=== PATIENT | female | born 1935 | race Caucasian/White ===

== ENCOUNTER 2024-03-25 07:27 | Inpatient (IN) | payer MEDICARE, OTHER ==
[~2024-03-25] VITALS: Ht 157.5 cm; Wt 80.8 kg
[2024-03-25] VITALS (14 sets, daily range): BP systolic 110–150; BP diastolic 55–86; PULSE 74–103; RESP 16–32; TEMP 97–97.9; O2SAT 2–99
[~2024-03-25 07:27] MED LIST: ALIR75IN2 SC; CEPH500C PO; FAMO-12 PO; FLUT100M IN; METO25TA93 PO; NITR100C6 PO; NYS15PW TOP
[2024-03-25] MEDS: ALBUTEROL SULF 2.5 MG/0.5ML(0.5%) NEB SOLN NEB ONE (07:43)
--- NOTE | 2024-03-25 07:44 | ECG ---
[facility] Test Date: 2024-03-25 Test Time: 07:37:11 Pat Name: JAM HENDERSON Department: ED Room: 0273T Gender: F Guest Attendant: AUDREY : 1935 Requested By: TRISTIN DALY Order Number: [id number] Reading MD: Jonny Rawls Measurements Intervals [place] Rate: 101 P: 269 CA: 106 QRS: -33 QRSD: 149 T: 129 QT: 403 QTc: 523 Interpretive Statements Sinus or ectopic atrial tachycardia Left bundle branch block Baseline wander in lead(s) II,III,aVF Electronically Signed On 04-01-2024 14:53:17 PST by Jonny Rawls Please click the below link to view image of tracing.
[2024-03-25] MEDS ORDERED: methylPREDNISolone ACETATE 80 MG/ML VL IM ONE (07:45)
--- NOTE | 2024-03-25 08:02 | ED.PDOC ---
History of Present Illness HPI Comments 88F BIBA w/ prior Hx of Heart Valve Replacement which may be associated to the c/c of CPAP. EMS state that the pt woke up 3 minutes ago at 0727 w/ SOB and family gave the pt 2L NC at home which the pt was SAT at 87% on scene. EMS gave the pt a CPAP en rout to the ED due from her work of breathe going down from them being on scene. Pt [id number] nodded that she did have cough as well. PMHx of HLD. Denies chills, fever, N/V/D, CP or other associated symptoms, modifiers or recent injuries or sick contact at this time. Chief Complaint: Shortness of Breath Time Seen by MD: 07:30 Reviewed Notes: Nurses Notes, Cash Application Representative Notes, Medications, Allergies Allergies: Coded Allergies: NO KNOWN ALLERGIES (Unverified , 03/25/24) Information Source: Patient, Emergency Med Personnel Mode of Arrival: EMS Severity: Moderate Timing: Minutes Duration: Since onset, Minutes Prehospital treatment: C-Pap Past Medical History Past Medical History (Other): Heart Valve Replacement and HLD. Surgical History: Denies all surgeries LICENSED LAND SURVEYOR History: No Pertinent LICENSED LAND SURVEYOR History Family History Family History: Reviewed,noncontributory to illness, Unknown Social History Smoker: Non-Smoker Alcohol: Denies ETOH Use Drugs: Denies Drug Use Lives In: Home Constitutional: denies: chills, diaphoresis, fatigue, fever, malaise, sweats, weakness, others EENTM: denies: blurred vision, double vision, ear bleeding, ear discharge, ear drainage, ear pain, ear ringing, eye pain, eye redness, hearing loss, mouth pain, mouth swelling, nasal discharge, nose bleeding, nose congestion, nose pain, photophobia, tearing, throat pain, throat swelling, voice changes, others Respiratory: reports: SOB at rest, shortness of breath; denies: cough, hemoptysis, orthopnea, SOB with excertion, stridor, wheezing, others Cardiovascular: denies: chest pain, dizzy spells, diaphoresis, Dyspnea on exertion, edema, irregular heart beat, left arm pain, lightheadedness, p alpitations, PND, syncope, others Gastrointestinal: denies: abdomen distended, abdominal pain, blood streaked bowels, constipated, diarrhea, dysphagia, difficulty swallowing, hematemesis, melena, nausea, poor appetite, poor fluid intake, rectal bleeding, rectal pain, vomiting, others Genitourinary: denies: abnormal vagina bleeding, burning, dyspareunia, dysuria, flank pain, frequency, hematuria, incontinence, pain, , vagina discharge, urgency, others Neurological: denies: dizziness, fainting, headache, left sided numbness, left sided weakness, numbness, paresthesia, pre-existing deficit, right sided numbness, right sided weakness, seizure, speech problems, tingling, tremors, weakness, others Musculoskeletal: denies: back pain, gout, joint pain, joint swelling, muscle pain, muscle stiffness, neck pain, others Integumetry: denies: bruises, change in color, change in hair/nails, dryness, laceration, lesions, lumps, rash, wounds, others Allergic/Immunocompromised: denies: Difficulty Healing, Frequent Infections, Hives, Itching, others Hematologic/Lymphatic: denies: anemia, blood clots, easy bleeding, easy bruising, swollen glands, others Endocrine: denies: excessive hunger, excessive sweating, excessive thirst, excessive urination, flushing, intolerance to cold, intolerance to heat, unexplained weight gain, unexplained weight loss, others Psychiatric: denies: anxiety, bipolar disorder, depression, hopeless, panic disorder, schizophrenia, sleepless, suicidal, others All Other Systems: Reviewed and Negative Physical Exam Exam Comments Bilateral wheezing Tachycardic Bilateral edema and swelling General Appearance: No Apparent Distress, Normal HEENT: Normal ENT Inspection, Pharynx Normal, TMs Normal Neck: Full Range of Motion, Non-Tender, Normal, Normal Inspection Respiratory: Chest Non-Tender, Lungs Clear, No Accessory Muscle Use, No Respiratory Distress, Normal Breath Sounds, Wheezing Cardiovascular: No JVD, No Murmur, No Gallop, Normal Peripheral Pulses, Regular Rate/Rhythm, Tachycardia Breast Exam: Deferred Gastrointestinal: No Organomegaly, Non Tender, No Pulsatile Mass, Normal Bowel Sounds, Soft Genitalia: Deferred Pelvic: Deferred Rectal: Deferred Extremities: No calf tenderness, Normal capillary refill, Normal inspection, Normal range of motion, Non-tender, No pedal edema Musculoskeletal : Apperance: Normal Neurologic: Alert, educational specialist II-XII nml as Tested, No Motor Deficits, Normal Affect, Normal Mood, No Sensory Deficits Cerebellar Function: Normal Reflexes: Normal Skin: Dry, Normal Color, Warm Lymphatic: No Adenopathy Was a procedure done? Was a procedure done?: No Differential Dx Considerations may include: Acute coronary syndrome, CHF, pneumonia, AAA, flu, pneumothorax, hemothorax, pleural effusion X-Ray, Labs, Meds, VS Vital Signs Date Time Temp Pulse Resp B/P (MAP) Pulse Ox O2 Delivery O2 Flow Rate FiO2 03/25/24 11:44 100 117/55 Facial BiPAP Mask 30 03/25/24 11:30 117/65 03/25/24 08:56 95 03/25/24 08:25 99 32 96 Bi-Pap+ 50 50 03/25/24 08:25 97.0 9 32 146/61 (89) 96 97.0 03/25/24 07:57 100 146/61 Facial BiPAP Mask 75 03/25/24 07:50 103 85 Facial BiPAP Mask 75 03/25/24 07:50 Facial BiPAP Mask 75 03/25/24 07:43 29 100 Non-Rebreather 15 N/A 03/25/24 07:37 101 03/25/24 07:34 96.6 103 28 186/93 (124) 85 Lab Test 03/25/24 11:50 03/25/24 11:12 03/25/24 09:38 03/25/24 08:48 Range/Units Troponin I High Sensitivity 131 *H 75 *H </=34 ng/L Urine Color Light-yellow Yellow Urine Clarity Clear Clear Urine pH 5.5 5.0-9.0 Urine Specific [place] 1.009 1.001-1.035 Urine Protein Negative Negative Urine Ketones Negative Negative Urine Blood Negative Negative /uL Urine Nitrite Negative Negative Urine Bilirubin Negative Negative Urine Urobilinogen Normal Negative mg/dL Urine Leukocyte Esterase Negative Negative /uL Urine RBC 1 0 - 4 /hpf Urine WBC 1 0 - 5 /hpf Urine Squamous Epithelial Cells None seen <5 /hpf Urine Bacteria None seen None Seen /hpf Urine Hyaline Casts Few 0 - 2 /lpf Urine Glucose Normal Normal mg/dL Blood Gas Specimen Type Arterial Blood Gas Sample Site Left radial Blood Gas Patient Temperature 37.0 Arterial Blood Date Drawn [id number] Arterial Blood pH 7.246 *L 7.350-7.450 Arterial Blood Partial Pressure CO2 59.8 H 32.0-45.0 mmHg Arterial Blood Partial Pressure O2 264.2 H 83.0-108.0 mmHg Arterial Blood HCO3 25.4 21.0-28.0 mmol/L Arterial Blood Oxygen Saturation 99.6 H 94.0-98.0 % Arterial Blood Base Excess -3.0 L -2.0-3.0 mmol/L Arterial Blood Oxyhemoglobin 98.2 H 94.0-98.0 % Arterial Blood Carboxyhemoglobin 0.9 0.5-1.5 % Arterial Blood Methemoglobin 0.5 0.0-1.5 % Adriel Test Yes Blood Gas Total Hemoglobin 14.40 12.0-16.0 g/dL Blood Gas Modality Mask - bipap FiO2 % 75.0 Blood Gas Pressure Support 5 Blood Gas EPAP 5 Blood Gas IPAP 10 Blood Gas Critical Value Read Back Yes Blood Gas Notified Whom Jennifer galan md Blood Gas Notified Time [id number] Blood Gas Notified By Cindy stone imaging aide Test 03/25/24 08:02 Range/Units White Blood Count 12.3 H 4.4-10.8 10^3/uL Red Blood Count 4.24 4.0-5.20 10^6/uL Hemoglobin 13.8 12.2-16.2 g/dL Hematocrit 41.6 36.0-46.0 % Mean Corpuscular Volume 98.1 80.0-100.0 fL Mean Corpuscular Hemoglobin 32.4 H 28.0-32.0 pg Mean Corpuscular Hemoglobin Concent 33.1 32.0-36.0 g/dL Red Cell Distribution Width 13.4 11.8-14.3 % Platelet Count 244 140-450 10^3/uL Mean Platelet Volume 7.7 6.9-10.8 fL Neutrophils (%) (Auto) 71.3 37.0-80.0 % Lymphocytes (%) (Auto) 20.8 10.0-50.0 % Monocytes (%) (Auto) 5.1 0.0-12.0 % Eosinophils (%) (Auto) 2.4 0.0-7.0 % Basophils (%) (Auto) 0.4 0.0-2.0 % Neutrophils # (Auto) 8.8 H 1.6-8.6 10 ^3/uL Lymphocytes # (Auto) 2.6 0.4-5.4 10 ^3/uL Monocytes # (Auto) 0.6 0-1.3 10 ^3/uL Eosinophils # (Auto) 0.3 0-0.8 10 ^3/uL Basophils # (Auto) 0 0-0.2 10 ^3/uL Nucleated Red Blood Cells 0.0 % D-Dimer, Quantitative 0.97 H 0.0-0.49 mg/L FEU Sodium Level 136 136-145 mmol/L Potassium Level 4.4 3.5-5.1 mmol/L Chloride Level 103 98-107 mmol/L Carbon Dioxide Level 27 20-31 mmol/L Anion Gap 6 5-15 Blood Urea Nitrogen 9 9-23 mg/dL Creatinine 0.88 0.550-1.02 mg/dL Glomerular Filtration Rate Calc 64 >90 mL/min BUN/Creatinine Ratio 10.2 10.0-20.0 Serum Glucose 263 H 74-106 mg/dL Calcium Level 9.3 8.7-10.4 mg/dL Total Bilirubin 0.5 0.2-1.0 mg/dL Aspartate Amino Transferase (AST) 30 13-40 U/L Alanine Aminotransferase (ALT) 21 7-40 U/L Alkaline Phosphatase 83 46-116 U/L Troponin I High Sensitivity 37 *H </=34 ng/L B-Type Natriuretic Peptide 421.38 0-100 pg/mL Total Protein 7.2 5.7-8.2 g/dL Albumin 4.2 3.2-4.8 g/dL Current Medications Medications (Trade) Dose Ordered Sig/Bijan Route Start Time Stop Time Status Last Admin Albuterol (Ventolin Medneb) 20 mg ONCE ONCE NEB 03/25/24 07:45 03/25/24 07:46 DC 03/25/24 07:43 Methylprednisolone Sodium Succinate (Solu Medrol) 80 mg ONCE ONCE IV 03/25/24 08:15 03/25/24 08:16 DC 03/25/24 08:10 Furosemide (Lasix Injection) 80 mg ONCE ONCE IV 03/25/24 09:15 03/25/24 09:19 DC 03/25/24 11:30 X-Ray, Labs, Meds, VS Comment This is a patient who presented with the acute onset of hypoxemic respiratory failure. She was satting at 90%. She was placed on BiPAP on route here. We continued that. Apparently patient has been drinking lot of fluids and had some chips or fries. Patient was not significant respiratory failure and chest x-ray shows cardiomegaly with bilateral pleural effusion. She had a decent response to large dose IV Lasix and her breathing did improve ultimately patient was taken off BiPAP. Nonetheless patient continued to be short of breath and therefore recommended hospitalization that she agreed. Time of 1ST Reevaluation: 08:00 Reevaluation 1ST: Unchanged Patient Education/Counseling: Diagnosis, Treatment, Prognosis Family Education/Counseling: No Family Present Departure 1 Departure Time of Disposition: 16:46 Impression: Primary Impression: Acute exacerbation of CHF (congestive heart failure) Additional Impression: Acute hypoxemic respiratory failure Disposition: 09 ADMITTED INPATIENT Admit to: Tele Condition: Critical Critical Care Note Critical Care Time?: Yes (45 min-critical care time only) Critical care comment: CRITICAL CARE TIME: 45 minutes Treatments/Evaluations: Close monitoring and treatment of unstable vital signs, cardiorespiratory, and neurologic status, while maintaining tight balance of fluid, respiratory, and cardiac interventions. This time includes discussing the case with the patient and the patients family. This time does not include all procedures stated elsewhere in this record. This time also includes reviewing old records, labs and radiological studies. This time includes examining and re- examining the patient. Additionally, this time also includes arranging care with admitting and consulting physicians. Stability Stability form required: No Heart Score Heart Score: Heart Score Response (Comments) Value History N/A 0 EKG N/A 0 Age N/A 0 Risk Factors N/A 0 Troponin N/A 0 Total 0 I personally scribed for TRISTIN GALAN MD ([email or web address]) on 03/25/24 at 08:02. Electronically submitted by Felix Espitia ([email or web address]). TRISTIN GALAN MD Mar 25, 2024 08:02
[2024-03-25] MEDS: methylPREDNISolone SOD SUCC 125 MG/2 ML VL IV ONE (08:10)
[2024-03-25 08:34] LABS: Basophils # (auto) 0 10 ^3/uL (0-0.2); Basophils % (auto) 0.4 % (0.0-2.0); Eosinophils # (auto) 0.3 10 ^3/uL (0-0.8); Eosinophils % (auto) 2.4 % (0.0-7.0); Hematocrit 41.6 % (36.0-46.0); Hemoglobin 13.8 g/dL (12.2-16.2); Lymphocytes # (auto) 2.6 10 ^3/uL (0.4-5.4); Lymphocytes % (auto) 20.8 % (10.0-50.0); Mean Corpuscular Hemoglobin 32.4 pg (28.0-32.0); Mean Corpuscular Hgb Conc. 33.1 g/dL (32.0-36.0); Mean Corpuscular Volume 98.1 fL (80.0-100.0); Monocytes # (auto) 0.6 10 ^3/uL (0-1.3); Monocytes % (auto) 5.1 % (0.0-12.0); Neutrophils # (auto) 8.8 10 ^3/uL (1.6-8.6); Neutrophils % (auto) 71.3 % (37.0-80.0); Platelet Count (auto) 244 10^3/uL (140-450); Red Blood Cells 4.24 10^6/uL (4.0-5.20); Red Cell Distribution Width 13.4 % (11.8-14.3); White Blood Cell 12.3 10^3/uL (4.4-10.8)
--- NOTE | 2024-03-25 08:35 | DVH ---
CHEST RADIOGRAPH Indication: sob Technique: Single frontal view of the chest was obtained Comparison: None FINDINGS: Lines and Tubes: None Lungs: No focal consolidation. Pleura: No effusion. No pneumothorax. Cardiomediastinal contours: Cardiomegaly Bones: No acute osseous abnormality. IMPRESSION: Cardiomegaly with chf
[2024-03-25 08:51] LABS: Alanine Aminotransferase 21 U/L (7-40); Albumin 4.2 g/dL (3.2-4.8); Alkaline Phosphatase 83 U/L (46-116); Anion Gap 6 (5-15); Aspartate Aminotransferase 30 U/L (13-40); BUN/Creatinine Ratio 10.2 (10.0-20.0); Bilirubin, Total 0.5 mg/dL (0.2-1.0); Blood Urea Nitrogen 9 mg/dL (9-23); Calcium 9.3 mg/dL (8.7-10.4); Carbon Dioxide 27 mmol/L (20-31); Chloride 103 mmol/L (98-107); Potassium 4.4 mmol/L (3.5-5.1); Sodium 136 mmol/L (136-145); Total Protein 7.2 g/dL (5.7-8.2)
[2024-03-25 09:01] LABS: Glucose 263 mg/dL (74-106)
[2024-03-25] MEDS: FUROSEMIDE 100 MG/10ML VIAL IV ONE (11:30)
[2024-03-25] MEDS ORDERED: ALBUTEROL SULF 2.5 MG/0.5ML(0.5%) NEB SOLN NEB PRN (13:30)
[2024-03-25] MEDS ORDERED: NITROGLYCERIN 0.4 MG SL TAB SL PRN (13:30)
[2024-03-25] MEDS: IPRATROPIUM BROM 0.5 MG/2.5ML INH SOL NEB SCH (14:18)
[2024-03-25] MEDS: ALBUTEROL SULF 2.5 MG/0.5ML(0.5%) NEB SOLN NEB SCH (14:18)
--- NOTE | 2024-03-25 14:22 | DVHHP2 ---
History of Present Illness Reason for Visit: Acute hypoxic respiratory failure rule out new onset heart failure History of Present Illness This is a 88-year-old female with history of hyperlipidemia and heart valve replacement who presents to the ED via EMS with chief complaint of shortness of breath that started early this morning. Patient states family gave patient 2 L oxygen at home, SpO2 87% on scene per EMS personnel. The patient was placed on CPAP EN route to this facility. The patient denies history of COPD along with issues with breathing. The patient is concerned about her symptoms and would like to be further evaluated and treated as this occurred suddenly. Upon evaluation, patient is on room air with SpO2 greater than 93% stating feeling relief and denying other symptoms at this time. The patient will be admitted under hospitalist care to the telemetry unit for further monitoring. The patient denies recent injury or trauma to her chest, fever, chills, headache, dizziness, palpitation, chest pain, nausea, vomiting, abdominal pain, diarrhea, constipation and other associated symptoms. The plan has been discussed with the patient and primary RN in which all questions concerns have been addressed. Cardiovascular: hyperipidemia Past Surgical History Heart valve replacement Family History: None Smoke: No ALCOHOL: none Drugs: None Lives: with Family Domestic Violence: Neg Review of Systems Respiratory: Shortness of breath Allergies: Coded Allergies: NO KNOWN ALLERGIES (Unverified , 03/25/24) Medications Current Medications Medications Dose Ordered Sig/Bijan Route Start Time Stop Time Status Last Admin Dose Admin Albuterol 2.5 mg Q2HPRN PRN NEB 03/25/24 13:30 Albuterol 2.5 mg Q4HR NEB 03/25/24 14:00 Ipratropium [place] 0.5 mg Q4HR NEB 03/25/24 14:00 Sodium Chloride 1,000 ml @ 60 mls/hr [id number] IV 03/25/24 13:30 Enoxaparin Sodium 40 mg DAILY SC 03/26/24 10:00 Acetaminophen 650 mg Q6HP PRN PO 03/25/24 13:30 Nitroglycerin 0.4 mg Q5MINP PRN SL 03/25/24 13:30 Morphine Sulfate 2 mg Q30M PRN IV 03/25/24 13:30 Exam Vital Signs Vital Signs Date Time Temp Pulse Resp B/P (MAP) Pulse Ox O2 Delivery O2 Flow Rate FiO2 03/25/24 11:44 100 117/55 Facial BiPAP Mask 30 03/25/24 08:25 32 96 03/25/24 08:25 97.0 97.0 03/25/24 07:43 15 General Appearance: Alert, Oriented X3, Cooperative, No acute distress HEENT: Atraumatic, PERRLA, Mucous membr. moist/pink Respiratory: Clear to auscultation, Normal air movement Cardiovascular: Normal S1, Normal S2, No murmurs Abdominal: Normal bowel sounds, Soft, No tenderness, No hepatospenomegaly, No masses Extremities: No clubbing, No cyanosis, No edema, Normal pulses, No tenderness/swelling Skin: No rashes Neuro: Normal speech, Strength at 5/5 X4 ext, Normal tone, Sensation intact, Cranial nerves 3-12 NL, Reflexes 2+ Psych/Mental Status: Mental status NL Labs/Xrays Labs Test 03/25/24 11:50 03/25/24 08:48 03/25/24 08:02 Range/Units Troponin I High Sensitivity 131 *H </=34 ng/L Blood Gas Specimen Type Arterial Blood Gas Sample Site Left radial Blood Gas Patient Temperature 37.0 Arterial Blood Date Drawn [id number] Arterial Blood pH 7.246 *L 7.350-7.450 Arterial Blood Partial Pressure CO2 59.8 H 32.0-45.0 mmHg Arterial Blood Partial Pressure O2 264.2 H 83.0-108.0 mmHg Arterial Blood HCO3 25.4 21.0-28.0 mmol/L Arterial Blood Oxygen Saturation 99.6 H 94.0-98.0 % Arterial Blood Base Excess -3.0 L -2.0-3.0 mmol/L Arterial Blood Oxyhemoglobin 98.2 H 94.0-98.0 % Arterial Blood Carboxyhemoglobin 0.9 0.5-1.5 % Arterial Blood Methemoglobin 0.5 0.0-1.5 % Adriel Test Yes Blood Gas Total Hemoglobin 14.40 12.0-16.0 g/dL Blood Gas Modality Mask - bipap FiO2 % 75.0 Blood Gas Pressure Support 5 Blood Gas EPAP 5 Blood Gas IPAP 10 Blood Gas Critical Value Read Back Yes Blood Gas Notified Whom Jennifer galan md Blood Gas Notified Time [id number] Blood Gas Notified By B. stone bird sitter White Blood Count 12.3 H 4.4-10.8 10^3/uL Red Blood Count 4.24 4.0-5.20 10^6/uL Hemoglobin 13.8 12.2-16.2 g/dL Hematocrit 41.6 36.0-46.0 % Mean Corpuscular Volume 98.1 80.0-100.0 fL Mean Corpuscular Hemoglobin 32.4 H 28.0-32.0 pg Mean Corpuscular Hemoglobin Concent 33.1 32.0-36.0 g/dL Red Cell Distribution Width 13.4 11.8-14.3 % Platelet Count 244 140-450 10^3/uL Mean Platelet Volume 7.7 6.9-10.8 fL Neutrophils (%) (Auto) 71.3 37.0-80.0 % Lymphocytes (%) (Auto) 20.8 10.0-50.0 % Monocytes (%) (Auto) 5.1 0.0-12.0 % Eosinophils (%) (Auto) 2.4 0.0-7.0 % Basophils (%) (Auto) 0.4 0.0-2.0 % Neutrophils # (Auto) 8.8 H 1.6-8.6 10 ^3/uL Lymphocytes # (Auto) 2.6 0.4-5.4 10 ^3/uL Monocytes # (Auto) 0.6 0-1.3 10 ^3/uL Eosinophils # (Auto) 0.3 0-0.8 10 ^3/uL Basophils # (Auto) 0 0-0.2 10 ^3/uL Nucleated Red Blood Cells 0.0 % D-Dimer, Quantitative 0.97 H 0.0-0.49 mg/L FEU Sodium Level 136 136-145 mmol/L Potassium Level 4.4 3.5-5.1 mmol/L Chloride Level 103 98-107 mmol/L Carbon Dioxide Level 27 20-31 mmol/L Anion Gap 6 5-15 Blood Urea Nitrogen 9 9-23 mg/dL Creatinine 0.88 0.550-1.02 mg/dL Glomerular Filtration Rate Calc 64 >90 mL/min BUN/Creatinine Ratio 10.2 10.0-20.0 Serum Glucose 263 H 74-106 mg/dL Calcium Level 9.3 8.7-10.4 mg/dL Total Bilirubin 0.5 0.2-1.0 mg/dL Aspartate Amino Transferase (AST) 30 13-40 U/L Alanine Aminotransferase (ALT) 21 7-40 U/L Alkaline Phosphatase 83 46-116 U/L B-Type Natriuretic Peptide 421.38 0-100 pg/mL Total Protein 7.2 5.7-8.2 g/dL Albumin 4.2 3.2-4.8 g/dL ORDERING PHYSICIAN: TRISTIN GALAN MD PROCEDURE(s): CXRP - CHEST PORTABLE REASON: sob ORDER NUMBER(s): [id number], ACCESSION NUMBER(s): [id number] CHEST RADIOGRAPH Indication: sob Technique: Single frontal view of the chest was obtained Comparison: None FINDINGS: Lines and Tubes: None Lungs: No focal consolidation. Pleura: No effusion. No pneumothorax. Cardiomediastinal contours: Cardiomegaly Bones: No acute osseous abnormality. IMPRESSION: Cardiomegaly with chf ATED BY: ROSMERY MORENO MD DICTATED DATE/TIME: 03/25/24831 SIGNED BY: ROSMERY MORENO MD SIGNED DATE/TIME: 03/25/24831 CC: Assessment/Plan Assessment/Plan Acute hypoxic respiratory failure rule out new onset heart failure--patient reports complaint of shortness of breath that started today at home The patient was given oxygen at home with SpO2 87% on scene per EMS Patient was transported to this facility with CPAP History of heart valve replacement and hyperlipidemia Patient on BiPAP FiO2 75% in the ER and was given Lasix with positive diuresis Upon evaluation on room air with SpO2 greater than 93% with improvement Admit to telemetry unit for monitoring Reviewed CBC white blood cell count 12.3 Reviewed troponin 37, 75 pending 3rd result Reviewed BMP which is normal D-dimer 0.97 Reviewed ABG respiratory acidosis Consider to consult Dr. Goldberg for evaluation and recommendation Med neb q.4 hours Albuterol q.2h p.r.n. shortness of breath Consider IV steroid if patient has wheezing--no wheezing noted ? New onset systolic/diastolic heart failure BNP 421.38 IV Lasix was given in the ER with positive diuresis Echocardiogram pending Consult Dr. Winkler for evaluation and recommendation Reconcile home medication DVT prophylaxis PUD prophylaxis not indicated no history of GERD Labs in a.m. Discussed plan of care with the patient in which all questions concerns have been addressed Plan discussed with: Patient My Orders Orders - [facility] Procedure Category Date Status Time *Consult CONS 03/25/24 Transmitted / 13:20 Albuterol Medneb PHA 03/25/24 In Process (Ventolin Medneb) 13:30 Albuterol Medneb PHA 03/25/24 In Process (Ventolin Medneb) 14:00 Ipratropium Medneb PHA 03/25/24 In Process (Atrovent Medneb) 14:00 Abg W/ Co-Ox RT 03/26/24 Logged 05:00 Abg W/ Co-Ox RT 03/27/24 Logged 05:00 Admit ADMIT 03/25/24 Transmitted 13:20 2 Gm Sodium Diet DIET 03/25/24 Transmitted Lunch Sodium Chloride 0.9% PHA 03/25/24 In Process 13:30 Enoxaparin Sodium PHA 03/26/24 In Process (Lovenox) 10:00 Complete Blood Count LAB 03/26/24 Verified 04:00 Comprehensive LAB 03/26/24 Verified Metabolic Panel 04:00 Condition: Fair BONNIE 03/25/24 In Process 13:20 Acetaminophen Tablet PHA 03/25/24 In Process (Tylenol Tablet) 13:30 Bedrest With Bathroom BONNIE 03/25/24 In Process Privileg 13:20 Sequential BONNIE 03/25/24 In Process Compression Device Nitroglycerin PHA 03/25/24 In Process Sublingual (Ntrostat 13:30 Morphine Sulfate PHA 03/25/24 In Process Injection 13:30 Stat Ekg For Chest BONNIE 03/25/24 In Process Pain 13:20 Notify Md Of Changes BONNIE 03/25/24 In Process From Base 13:20 Flight Physician For BONNIE 03/25/24 In Process 24 Hours 13:20 Emergency Dysrhythmia BONNIE 03/25/24 In Process Protocol 13:20 Rhythm Strips Once BONNIE 03/25/24 In Process Every Shift 13:20 Oxygen By Nasal RT 03/25/24 Transmitted Cannula 13:20 Date of Service: Mar 25, 2024 Billing Provider: [facility] Common Visit Codes: [id number] INP/OBS CARE (HIGH) [facility] Mar 25, 2024 14:22
[2024-03-25] MEDS: SODIUM CHLORIDE 0.9% 1,000 ML IV SCH (14:49)
[2024-03-25 14:52] LABS: Urine Bacteria None Seen /hpf (None Seen)
[2024-03-25 15:21] LABS: Urine Blood Negative /uL (Negative); Urine Clarity Clear (Clear); Urine Color Light-Yellow (Yellow); Urine Hyaline Cast FEW /lpf (0 - 2); Urine Protein, UAD Negative (Negative); Urine Specific Gravity 1.009 (1.001-1.035); Urine Squamous Epithelial Cell None Seen /hpf (<5); Urine Urobilinogen Normal (Negative); Urine WBC 1 /hpf (0 - 5); Urine pH 5.5 (5.0-9.0)
--- NOTE | 2024-03-25 21:29 | DVHINCON2 ---
Date of service: Mar 25, 2024 Referring Physician Elaine Vincent NP Reason for Consultation Acute hypoxic/hypercarbic respiratory failure, COPD exacerbation History of Present Illness An 88-year-old woman with PMHx of hyperlipidemia and heart valve replacement who presents to ED today via EMS with c/o shortness of breath starting early this morning. Family gave patient 2 L oxygen at home, SpO2 was 87% on scene per EMS. Patient was placed on CPAP en route. Pt denies known hx of COPD or issues with breathing. She is concerned about sudden onset of these symptoms and presents requesting further evaluation. On evaluation in ED, pt was on room air with sats greater than 93%, stated improvement in symptoms. Patient was admitted for further care and pulmonary consultation is requested for evaluation and management of acute hypoxic/hypercarbic respiratory failure and COPD exacerbation Review of Systems: 14-point review of systems negative unless otherwise noted above. Past Medical History: Hyperlipidemia Past Surgical History: Heart valve replacement Medications: Reviewed. Allergies: Azithromycin Sulfa Antibiotics. Family History: No family history of premature CAD. No family history of lung disorders. Social History: Nonsmoker. No alcohol or illicit drug use. Allergies: Coded Allergies: Azithromycin (Verified Allergy, Severe, 03/25/24) ANAPHYLACTIC SHOCK PER PT Sulfa Antibiotics (Verified Allergy, Unknown, 03/25/24) Home Meds Reported Medications Ibuprofen (Ibuprofen) 200 Mg Cap, 200 MG PO PRN, MG 03/25/24 Aspirin (Aspir-Low) 81 Mg Tab, 81 MG PO DAILY for 30 Days, MG 03/25/24 Famotidine (Famotidine) 20 Mg Tab, 20 MG PO PRN for 30 Days, MG 03/25/24 Alirocumab (Praluent) 75 Mg/Ml Inj, 75 MG SC, INJ 03/25/24 Dorzolamide-Timolol (Dorzolamide Hcl/Timolol M) 1 Ml Renetta, 1 DROP EACHEYE BID, #1 0 ML 6 Refills 03/25/24 Metoprolol Tartrate (Metoprolol Tartrate) 25 Mg Tab, 12.5 MG PO HS for 30 Days, MG 03/25/24 Metoprolol Tartrate (Metoprolol Tartrate) 25 Mg Tab, 25 MG PO DAILY for 30 Days, MG 03/25/24 Current Medications Current Medications Medications (Trade) Dose Ordered Sig/Bijan Route PRN Reason Start Time Stop Time Status Last Admin Albuterol (Ventolin Medneb) 2.5 mg Q2HPRN PRN NEB SHORTNESS OF BREATH 03/25/24 13:30 Albuterol (Ventolin Medneb) 2.5 mg Q4HR NEB 03/25/24 14:00 03/25/24 14:18 Ipratropium [place] (Atrovent Medneb) 0.5 mg Q4HR NEB 03/25/24 14:00 03/25/24 20:10 Sodium Chloride 1,000 ml @ 60 mls/hr [id number] IV 03/25/24 13:30 03/25/24 14:49 Enoxaparin Sodium (Lovenox) 40 mg DAILY SC 03/26/24 10:00 Acetaminophen (Tylenol Tablet) 650 mg Q6HP PRN PO PAIN SCALE 1-3 OR TEMP>100.4 03/25/24 13:30 Nitroglycerin (Ntrostat Sublingual) 0.4 mg Q5MINP PRN SL FOR CHEST PAIN 03/25/24 13:30 Morphine Sulfate 2 mg Q30M PRN IV FOR CHEST PAIN 03/25/24 13:30 Budesonide (Pulmicort) 0.5 mg BID NEB 03/25/24 22:00 Vital Signs Vital Signs Date Time Temp Pulse Resp B/P (MAP) Pulse Ox O2 Delivery O2 Flow Rate FiO2 03/25/24 21:00 97.9 92 20 110/60 (77) 99 97.9 03/25/24 20:10 Room Air 0.0 03/25/24 20:10 21 Physical Exam Gen.: Patient lying in bed in no apparent distress. Breathing on room air. Head: Normocephalic, atraumatic. Eyes: EOMI/PERRLA. Ears: Normal hearing. Normal anatomy. Neck/trachea: Trachea midline, supple. Nose: Normal external anatomy. Mouth: Moist mucous membranes. Chest: Decreased air entry bilaterally. No wheezing or rhonchi. Cardiovascular: Positive S1, positive S2. Regular rate and rhythm. Abdomen: Positive bowel sounds in all 4 quadrants. Soft, non-tender, non-dist ended. : Deferred. Rectal: Deferred. Skin: Warm, dry. Intact. Extremities: 2+ radial pulses bilaterally. No lower extremity edema. Neuro: Awake, alert, oriented x3. No gross motor or sensory deficits. Cranial nerves II through XII intact. Gait not assessed. Labs/Diagnostic Data Labs Test 03/25/24 11:50 03/25/24 11:12 03/25/24 08:48 03/25/24 08:02 Range/Units Troponin I High Sensitivity 131 *H </=34 ng/L Urine Color Light-yellow Yellow Urine Clarity Clear Clear Urine pH 5.5 5.0-9.0 Urine Specific [place] 1.009 1.001-1.035 Urine Protein Negative Negative Urine Ketones Negative Negative Urine Blood Negative Negative /uL Urine Nitrite Negative Negative Urine Bilirubin Negative Negative Urine Urobilinogen Normal Negative mg/dL Urine Leukocyte Esterase Negative Negative /uL Urine RBC 1 0 - 4 /hpf Urine WBC 1 0 - 5 /hpf Urine Squamous Epithelial Cells None seen <5 /hpf Urine Bacteria None seen None Seen /hpf Urine Hyaline Casts Few 0 - 2 /lpf Urine Glucose Normal Normal mg/dL Blood Gas Specimen Type Arterial Blood Gas Sample Site Left radial Blood Gas Patient Temperature 37.0 Arterial Blood Date Drawn [id number] Arterial Blood pH 7.246 *L 7.350-7.450 Arterial Blood Partial Pressure CO2 59.8 H 32.0-45.0 mmHg Arterial Blood Partial Pressure O2 264.2 H 83.0-108.0 mmHg Arterial Blood HCO3 25.4 21.0-28.0 mmol/L Arterial Blood Oxygen Saturation 99.6 H 94.0-98.0 % Arterial Blood Base Excess -3.0 L -2.0-3.0 mmol/L Arterial Blood Oxyhemoglobin 98.2 H 94.0-98.0 % Arterial Blood Carboxyhemoglobin 0.9 0.5-1.5 % Arterial Blood Methemoglobin 0.5 0.0-1.5 % Adriel Test Yes Blood Gas Total Hemoglobin 14.40 12.0-16.0 g/dL Blood Gas Modality Mask - bipap FiO2 % 75.0 Blood Gas Pressure Support 5 Blood Gas EPAP 5 Blood Gas IPAP 10 Blood Gas Critical Value Read Back Yes Blood Gas Notified Whom Jennifer galan md Blood Gas Notified Time [id number] Blood Gas Notified By Cindy stone rrt White Blood Count 12.3 H 4.4-10.8 10^3/uL Red Blood Count 4.24 4.0-5.20 10^6/uL Hemoglobin 13.8 12.2-16.2 g/dL Hematocrit 41.6 36.0-46.0 % Mean Corpuscular Volume 98.1 80.0-100.0 fL Mean Corpuscular Hemoglobin 32.4 H 28.0-32.0 pg Mean Corpuscular Hemoglobin Concent 33.1 32.0-36.0 g/dL Red Cell Distribution Width 13.4 11.8-14.3 % Platelet Count 244 140-450 10^3/uL Mean Platelet Volume 7.7 6.9-10.8 fL Neutrophils (%) (Auto) 71.3 37.0-80.0 % Lymphocytes (%) (Auto) 20.8 10.0-50.0 % Monocytes (%) (Auto) 5.1 0.0-12.0 % Eosinophils (%) (Auto) 2.4 0.0-7.0 % Basophils (%) (Auto) 0.4 0.0-2.0 % Neutrophils # (Auto) 8.8 H 1.6-8.6 10 ^3/uL Lymphocytes # (Auto) 2.6 0.4-5.4 10 ^3/uL Monocytes # (Auto) 0.6 0-1.3 10 ^3/uL Eosinophils # (Auto) 0.3 0-0.8 10 ^3/uL Basophils # (Auto) 0 0-0.2 10 ^3/uL Nucleated Red Blood Cells 0.0 % D-Dimer, Quantitative 0.97 H 0.0-0.49 mg/L FEU Sodium Level 136 136-145 mmol/L Potassium Level 4.4 3.5-5.1 mmol/L Chloride Level 103 98-107 mmol/L Carbon Dioxide Level 27 20-31 mmol/L Anion Gap 6 5-15 Blood Urea Nitrogen 9 9-23 mg/dL Creatinine 0.88 0.550-1.02 mg/dL Glomerular Filtration Rate Calc 64 >90 mL/min BUN/Creatinine Ratio 10.2 10.0-20.0 Serum Glucose 263 H 74-106 mg/dL Calcium Level 9.3 8.7-10.4 mg/dL Total Bilirubin 0.5 0.2-1.0 mg/dL Aspartate Amino Transferase (AST) 30 13-40 U/L Alanine Aminotransferase (ALT) 21 7-40 U/L Alkaline Phosphatase 83 46-116 U/L B-Type Natriuretic Peptide 421.38 0-100 pg/mL Total Protein 7.2 5.7-8.2 g/dL Albumin 4.2 3.2-4.8 g/dL Assessment Impression: Acute hypoxic respiratory failure Acute hypercarbic respiratory failure COPD exacerbation New onset CHF Leukocytosis Elevated D-dimer Elevated troponin Obesity BMI 30.4 Plan: Patient was transitioned off from BiPAP (FiO2 75%) to low flow O2 Currently on room air. Supplemental oxygen PRN. Titrate to keep O2 sats above 92%. Continue bronchodilators. IV steroids Pulmicort BID Monitor renal function. Monitor electrolytes. Supplement as necessary. Monitor ins and outs. Diet and lifestyle modifications for weight reduction Obesity - complicates all care DVT prophylaxis. Prognosis: Poor given patient's multiple co-morbidities. Rest of plan per hospitalist and other consultants. Thank you, BETTY Vincent, for allowing me to participate in this patient's care. Further recommendations will depend on the patient's clinical course. Please do not hesitate to contact me if you have any questions or concerns. This medical document was created using an electronic medical record system with [employer] dictation system. Although these documentations are being carefully reviewed, there may still be some phonetic and typographical changes. The errors are purely typographical, due to imperfection on the software program, and do not reflect any compromise in the patient's medical care. Plan discussed with: Patient, Other (RN/BETTY Vincent/) PAWEL CASTANON MD Mar 25, 2024 21:29
[2024-03-25] MEDS ORDERED: METO25TA5 PO ×2 (22:08)
[2024-03-25] MEDS ORDERED: ASPI-543 PO (22:11)
[2024-03-25] MEDS ORDERED: DORZ2SOL18 EACHEYE (22:11)
[2024-03-25] MEDS ORDERED: IBUP200C3 PO (22:11)
[2024-03-25] MEDS: BUDESONIDE (INHALATION) 0.5 MG/2 ML NEB NEB SCH (22:37)
[2024-03-26] VITALS (17 sets, daily range): BP systolic 93–142; BP diastolic 43–86; PULSE 67–150; RESP 16–20; TEMP 97.8–98.2; O2SAT 93–100
[2024-03-26 05:58] LABS: Alkaline Phosphatase 111 U/L (46-116); Anion Gap 8 (5-15); BUN/Creatinine Ratio 31.2 (10.0-20.0); Calcium 8.8 mg/dL (8.7-10.4); Chloride 99 mmol/L (98-107); Potassium 4.2 mmol/L (3.5-5.1); Sodium 140 mmol/L (136-145); Total Protein 6.7 g/dL (5.7-8.2)
[2024-03-26 05:59] LABS: Alanine Aminotransferase 107 U/L (7-40); Aspartate Aminotransferase 180 U/L (13-40); Bilirubin, Total 0.3 mg/dL (0.2-1.0); Blood Urea Nitrogen 34 mg/dL (9-23); Carbon Dioxide 33 mmol/L (20-31); Glucose 155 mg/dL (74-106)
[2024-03-26] MEDS: MORPHINE SULFATE INJ 2 MG/ml SYRG IV PRN (08:00)
[2024-03-26 08:22] LABS: Basophils # (auto) 0 10 ^3/uL (0-0.2); Basophils % (auto) 0.2 % (0.0-2.0); Eosinophils # (auto) 0 10 ^3/uL (0-0.8); Eosinophils % (auto) 0.3 % (0.0-7.0); Hematocrit 36.7 % (36.0-46.0); Hemoglobin 12.6 g/dL (12.2-16.2); Lymphocytes # (auto) 2.4 10 ^3/uL (0.4-5.4); Lymphocytes % (auto) 20.1 % (10.0-50.0); Mean Corpuscular Hgb Conc. 34.3 g/dL (32.0-36.0); Mean Corpuscular Volume 96.3 fL (80.0-100.0); Monocytes # (auto) 1.2 10 ^3/uL (0-1.3); Monocytes % (auto) 10.5 % (0.0-12.0); Neutrophils # (auto) 8.2 10 ^3/uL (1.6-8.6); Neutrophils % (auto) 68.9 % (37.0-80.0); Nucleated Red Blood Cells % 0.1 %; Platelet Count (auto) 201 10^3/uL (140-450); Red Blood Cells 3.81 10^6/uL (4.0-5.20); Red Cell Distribution Width 13.1 % (11.8-14.3); White Blood Cell 11.9 10^3/uL (4.4-10.8)
[2024-03-26] MEDS ORDERED: ENOXAPARIN SOD 40 MG/0.4 ML SYRINGE SC SCH (10:00)
[2024-03-26] MEDS ORDERED: FUROSEMIDE 40 MG/4 ML VIAL IV ONE ×2 (10:45)
--- NOTE | 2024-03-26 10:47 | DVHPN2 ---
Progress Note Date Seen: Mar 26, 2024 Medical Necessity Reason Pt with a Central, PICC or Fol: Yes The following are medically ne: Bob Catheter Reason for bob catheter: Strict I&O Subjective Patient reports: No new complaints Review of Systems: HEENT:Normal, CVS:Normal, RESPIRATORY:Normal, GI:Normal, :Normal, MSK:Normal, NEURO:Normal Objective vital signs Vital Sign Date Time Temp Pulse Resp B/P (MAP) Pulse Ox O2 Delivery O2 Flow Rate FiO2 03/26/24 09:00 98.0 121 16 116/73 (87) 94 98.0 03/26/24 06:41 Nasal Cannula 1.0 03/26/24 06:38 24 Total Intake and Output 03/25/24 03/25/24 03/26/24 15:00 23:00 07:00 Intake Total 395 ml Output Total 1150 ml 750 ml 1250 ml Balance -1150 ml -750 ml -855 ml medications Current Medications Medications Dose Ordered Sig/Bijan Route Start Time Stop Time Status Last Admin Dose Admin Albuterol 2.5 mg Q2HPRN PRN NEB 03/25/24 13:30 Albuterol 2.5 mg Q4HR NEB 03/25/24 14:00 03/26/24 10:01 2.5 MG Ipratropium [place] 0.5 mg Q4HR NEB 03/25/24 14:00 03/26/24 10:01 0.5 MG Enoxaparin Sodium 40 mg DAILY SC 03/26/24 10:00 Acetaminophen 650 mg Q6HP PRN PO 03/25/24 13:30 Nitroglycerin 0.4 mg Q5MINP PRN SL 03/25/24 13:30 Morphine Sulfate 2 mg Q30M PRN IV 03/25/24 13:30 03/26/24 08:00 2 MG Budesonide 0.5 mg BID NEB 03/25/24 22:00 03/26/24 10:01 0.5 MG Furosemide 40 mg DAILY IV 03/27/24 10:00 UNV Examination: GENERAL:Normal, HEENT:Normal, NECK:Normal, LUNGS:Normal, LUNGS:Abnormal (on oxygen), CVS:Normal, ABDOMEN:Normal, MSK:Normal, MSK:Abnormal (edema++), SKIN:Normal, NEURO:Normal, :Normal laboratory and microbiology Laboratory Tests 03/26/24 07:09 03/26/24 04:39 Test 03/26/24 04:39 Range/Units Serum Glucose 155 H 74-106 mg/dL Problem List/Assessment/Plan Problem List/Assessment/Plan #1 acute resp failure: bipap, abg #2 acute systolic/diastolic heart failure: lasix iv #3 s/p tavr: echo #4 hyperlipidemia #5 htn transfer to [facility] advance care planning- full code- time spent 21 mins Plan discussed with: Patient, Spouse My Orders My Orders Orders - ERNESTO BANEGAS MD Procedure Category Date Status Time Abg W/ Co-Ox RT 03/26/24 Logged 10:36 Furosemide Injection PHA 03/26/24 Logged (Lasix Injection) 10:45 Transfer Orders XFER 03/26/24 Transmitted 10:40 BIPAP RT 03/26/24 Logged 10:40 Furosemide Injection PHA 03/26/24 Logged (Lasix Injection) 10:45 Furosemide Injection PHA 03/27/24 Logged (Lasix Injection) 10:00 BIPAP RT 03/26/24 Logged 10:41 Critical Care Time (mins): 41 (critical care time 41 mins) Date of Service: Mar 26, 2024 Billing Provider: ERNESTO BANEGAS MD Common Visit Codes: [id number] CARE 30-74 MIN ERNESTO BANEGAS MD Mar 26, 2024 10:47
[2024-03-26] MEDS: FUROSEMIDE 40 MG/4 ML VIAL IV SCH ×2 (10:57→18:33)
[2024-03-26 10:59] LABS: Base Excess -1.6 mmol/L (-2.0-3.0)
[2024-03-26] MEDS ORDERED: ENOXAPARIN SOD 100 MG/1 ML SYRINGE SC ONE (11:00)
--- NOTE | 2024-03-26 11:02 | DVHINCON2 ---
Date of service: Mar 26, 2024 History of Present Illness HPI Patient is a 88-year-old female who presented to the hospital with shortness of breath. It seems that the patient was found by EMS with oxygen saturation of 87% at home. Later, the patient was started on CPAP and was given Lasix which improved her clinical status. It is reported that she has had more fluids and chips/mercer prior to presentation. Later on tele floor she got more short of b reath and was started on BiPAP. Cardiology is involved for cardiac aspects of care. Patient is known to our practice from outside. 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 It is of note that echocardiogram of November 2023 had revealed some component of aortic stenosis. Home Meds Reported Medications Ibuprofen (Ibuprofen) 200 Mg Cap, 200 MG PO PRN, MG 03/25/24 Aspirin (Aspir-Low) 81 Mg Tab, 81 MG PO DAILY for 30 Days, MG 03/25/24 Famotidine (Famotidine) 20 Mg Tab, 20 MG PO PRN for 30 Days, MG 03/25/24 Alirocumab (Praluent) 75 Mg/Ml Inj, 75 MG SC, INJ 03/25/24 Dorzolamide-Timolol (Dorzolamide Hcl/Timolol M) 1 Ml Renetta, 1 DROP EACHEYE BID, #10 ML 6 Refills 03/25/24 Metoprolol Tartrate (Metoprolol Tartrate) 25 Mg Tab, 12.5 MG PO HS for 30 Days, MG 03/25/24 Metoprolol Tartrate (Metoprolol Tartrate) 25 Mg Tab, 25 MG PO DAILY for 30 Days, MG 03/25/24 Past Medical History Others Past medical history includes valvular heart disease and status post TAVR, DJD, GERD, gallstones, neuropathy and pulmonary hypertension. Patient Family History: Patient reports no known family medical history. Smoker: No Hx (Negative) Alocohol: None Drugs: None Lives with: With family Review of Systems Constitutional: Weakness Ears, Nose, & Throat: No symptom reported Pulmonary/Respiratory: Dyspnea, Cough Cardiovascular: Orthopnea, Paroxysmal Noc. Dyspnea All Other Systems Fourteen point review of system was performed. Relevant findings as per above and as per HPI. Otherwise negative. H&P Exam Vital Signs Vital Signs Date Time Temp Pulse Resp B/P (MAP) Pulse Ox O2 Delivery O2 Flow Rate FiO2 1/13/25 10:57 151/85 03/26/24 09:00 98.0 121 16 94 98.0 03/26/24 06:41 Nasal Cannula 1.0 03/26/24 06:38 24 General Appeara: Moderate distress Head Exam: Normal inspection Eye Exam: bilateral eye PERRL Pulmonary/Respiratory: Rales, Rhonci Cardiovascular/Chest: Regular rate, Systolic murmur Peripheral Pulses: 2+ carotid (R), 2+ carotid (L), 2+ femoral (R), 2+ femoral (L), 2+ dorsalis pedis (R), 2+ dorsalis pedis (L), 2+ Radial (R), 2+ Radial (L) Abdominal Exam: Normal bowel sounds, Soft Neuro/Mental St: Alert, Oriented Eye contact/ Speech: Cooperative Labs/Xrays Labs Test 03/26/24 10:50 03/26/24 07:09 03/26/24 04:39 03/25/24 11:50 Range/Units Blood Gas Specimen Type Arterial Blood Gas Sample Site Right radial Blood Gas Patient Temperature 37.0 Arterial Blood Date Drawn [id number] Arterial Blood pH 7.313 L 7.350-7.450 Arterial Blood Partial Pressure CO2 50.9 H 32.0-45.0 mmHg Arterial Blood Partial Pressure O2 71.0 L 83.0-108.0 mmHg Arterial Blood HCO3 25.2 21.0-28.0 mmol/L Arterial Blood Oxygen Saturation 91.3 L 94.0-98.0 % Arterial Blood Base Excess -1.6 -2.0-3.0 mmol/L Arterial Blood Oxyhemoglobin 90.1 L 94.0-98.0 % Arterial Blood Carboxyhemoglobin 1.0 0.5-1.5 % Arterial Blood Methemoglobin 0.3 0.0-1.5 % Adriel Test Yes Blood Gas Total Hemoglobin 14.00 12.0-16.0 g/dL Blood Gas Liter Flow 2.00 Blood Gas Modality Nasal cannula FiO2 % 28.0 White Blood Count 11.9 H 4.4-10.8 10^3/uL Red Blood Count 3.81 L 4.0-5.20 10^6/uL Hemoglobin 12.6 12.2-16.2 g/dL Hematocrit 36.7 # 36.0-46.0 % Mean Corpuscular Volume 96.3 80.0-100.0 fL Mean Corpuscular Hemoglobin 33.0 H 28.0-32.0 pg Mean Corpuscular Hemoglobin Concent 34.3 32.0-36.0 g/dL Red Cell Distribution Width 13.1 11.8-14.3 % Platelet Count 201 140-450 10^3/uL Mean Platelet Volume 8.2 6.9-10.8 fL Neutrophils (%) (Auto) 68.9 37.0-80.0 % Lymphocytes (%) (Auto) 20.1 10.0-50.0 % Monocytes (%) (Auto) 10.5 0.0-12.0 % Eosinophils (%) (Auto) 0.3 0.0-7.0 % Basophils (%) (Auto) 0.2 0.0-2.0 % Neutrophils # (Auto) 8.2 1.6-8.6 10 ^3/uL Lymphocytes # (Auto) 2.4 0.4-5.4 10 ^3/uL Monocytes # (Auto) 1.2 0-1.3 10 ^3/uL Eosinophils # (Auto) 0 0-0.8 10 ^3/uL Basophils # (Auto) 0 0-0.2 10 ^3/uL Nucleated Red Blood Cells 0.1 % Sodium Level 140 136-145 mmol/L Potassium Level 4.2 3.5-5.1 mmol/L Chloride Level 99 98-107 mmol/L Carbon Dioxide Level 33 H 20-31 mmol/L Anion Gap 8 5-15 Blood Urea Nitrogen 34 #H 9-23 mg/dL Creatinine 1.09 H 0.550-1.02 mg/dL Glomerular Filtration Rate Calc 49 >90 mL/min BUN/Creatinine Ratio 31.2 H 10.0-20.0 Serum Glucose 155 H 74-106 mg/dL Calcium Level 8.8 8.7-10.4 mg/dL Total Bilirubin 0.3 0.2-1.0 mg/dL Aspartate Amino Transferase (AST) 180 H 13-40 U/L Alanine Aminotransferase (ALT) 107 H 7-40 U/L Alkaline Phosphatase 111 46-116 U/L Total Protein 6.7 5.7-8.2 g/dL Albumin 4.0 3.2-4.8 g/dL Troponin I High Sensitivity 131 *H </=34 ng/L Test 03/25/24 11:12 03/25/24 08:48 03/25/24 08:02 Range/Units Urine Color Light-yellow Yellow Urine Clarity Clear Clear Urine pH 5.5 5.0-9.0 Urine Specific [place] 1.009 1.001-1.035 Urine Protein Negative Negative Urine Ketones Negative Negative Urine Blood Negative Negative /uL Urine Nitrite Negative Negative Urine Bilirubin Negative Negative Urine Urobilinogen Normal Negative mg/dL Urine Leukocyte Esterase Negative Negative /uL Urine RBC 1 0 - 4 /hpf Urine WBC 1 0 - 5 /hpf Urine Squamous Epithelial Cells None seen <5 /hpf Urine Bacteria None seen None Seen /hpf Urine Hyaline Casts Few 0 - 2 /lpf Urine Glucose Normal Normal mg/dL Blood Gas Pressure Support 5 Blood Gas EPAP 5 Blood Gas IPAP 10 Blood Gas Critical Value Read Back Yes Blood Gas Notified Whom Jennifer galan md Blood Gas Notified Time [id number] Blood Gas Notified By Cindy stone sales designer D-Dimer, Quantitative 0.97 H 0.0-0.49 mg/L FEU B-Type Natriuretic Peptide 421.38 0-100 pg/mL Assessment/Plan Plan Patient is a 88-year-old female who presented to the hospital with shortness of breath. It seems that the patient was found by EMS with oxygen saturation of 87% at home. Later, the patient was started on CPAP and was given Lasix which improved her clinical status. It is reported that she has had more fluids and chips/mercer prior to presentation. Later on tele floor she got more short of breath and was started on BiPAP. Cardiology is involved for cardiac aspects of care. Patient is known to our practice from outside. 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 It is of note that echocardiogram of November 2023 had revealed some component of aortic stenosis. Overweight female. Using accessory muscles of breathing. Mucosa is pink and wet. No goiter. Long examination reveals scattered rhonchi/rales. Cardiac: Regular, systolic murmur 3/6 in the apex/base is heard. Abdomen is soft. Bowel sound is positive. Mild hepatomegaly is observed. Extremities reveal 2+ edema. Dorsalis pedis is 2+ bilateral. Past medical history includes valvular heart disease and status post TAVR, DJD, GERD, gallstones, neuropathy and pulmonary hypertension. Echocardiogram of December 05, 2023 (performed in the office) revealed mild concentric left ventricular hypertrophy, ejection fraction 60 65%, moderate left atrial enlargement, right ventricular systolic pressure 41 mm Hg, mild TR, mild mitral annular calcification, trace PI, aortic valve replacement with up to moderate stenosis, trace aortic insufficiency. WBC: 12.3 - 11.9 D-dimer: 0.97 Creatinine: 0.88 - 1.09 Potassium: 4.4 - 4.2 AST/ALT: 30/21 - 180/107 Troponin (high sensitive): 37 - 75 - 131 BNP: 421.38 Chest x-ray reported: Lines and Tubes: None Lungs: No focal consolidation. Pleura: No effusion. No pneumothorax. Cardiomediastinal contours: Cardiomegaly Bones: No acute osseous abnormality. IMPRESSION: Cardiomegaly with chf EKG reveals sinus tachycardia with left bundle branch block Tele reveals sinus tachycardia with left bundle branch block Echocardiogram reported: Technically limited study secondary to poor acoustic windows. Left ventricle: Mild concentric left ventricular hypertrophy was seen. LVEF was 55-60%. Even though no gross wall motion abnormality was observed, its presence can not be ruled out and the basis of this study. Right ventricle is normal size with normal systolic function. Both atria were mildly dilated. Aortic valve: Presence of previous Bioprosthetic valve in Aortic position cannot be ruled out. It was mild insufficiency. Severe stenosis was observed (peak/mean pressure gradient across the aortic valve was 92/65 mm Hg and calculated aortic valve area was 0.6 cm). Mitral valve: Mild mitral regurgitation was seen. Mild mitral annular calcification was observed. There was mild tricuspid regurgitation. Pulmonary valve revealed mild insufficiency. Right ventricular systolic pressure was assessed around 62 mm Hg. There was no pericardial effusion. Consider TRIP for further evaluation of aortic valve. Patient is a 88-year-old female presented with shortness of breath. She was found to have acute heart failure. Does have history of valvular heart disease an echocardiogram is in favor of significant aortic stenosis (valve res tenosis?). Does have component of pulmonary hypertension which can be considered type 2. He is found to have mildly abnormal D-dimer. Needs TRIP for further evaluation/clarification of valvular heart disease and then possible cardiac catheterization. TRIP for further evaluation/clarification of Short of breath Acute respiratory failure Acute heart failure, diastolic Valvular heart disease s/p TAVR Aortic stenosis (prosthetic valve restenosis?) COPD exacerbation Obesity Abnormal D-dimer Cardiac suggestion for management: Manage in MARIELLA Respiratory support, BiPAP/CPAP IV Lasix (40 mg twice daily) Follow-up electrolytes and kidney function test and correct abnormalities. Keep potassium above 4 and magnesium above 2 Needs TRIP for further evaluation/clarification of valvular heart disease and then possible cardiac catheterization. We will request for TRIP for tomorrow morning. Anticoagulation is advised Further evaluation and management depends on the above and clinical course Thank you for consultation A total of 75 minutes was spent reviewing the patient record, examining the patient, making a diagnostic and therapeutic plan, discussing this plan with medical personnel, following up on diagnostic studies and following the patient for clinical stability excluding any and all procedures. At least 50% of this time was spent in direct, [id number] contact. Thank you for allowing me to participate in this patient's care. Further recommendations will depend on patient's clinical course. Please do not hesitate to contact me if you have any questions or concerns. This medical document was created using electronic medical record system with [employer] computerized dictation system. Although this document has been carefully reviewed, there may still be some phonetic and typographical errors. These areas are purely typographical due to the imperfection of the software programs, and do not reflect any compromise in the patient's medical care. Plan discussed with: Patient, Son (at bedside), Other (nurse) JAZLYN LR MD Mar 26, 2024 11:02
[2024-03-26 12:48] LABS: Base Excess 2.3 mmol/L (-2.0-3.0)
[2024-03-26] MEDS: ENOXAPARIN SOD 80 MG/0.8ML SYRINGE SC ONE (12:49)
[2024-03-26] MEDS: FUROSEMIDE 40 MG/4 ML VIAL IV ONE (15:45)
[2024-03-26] MEDS: FUROSEMIDE 20 MG/2 ML VIAL IV ONE (16:30)
--- NOTE | 2024-03-26 17:18 | DVHSR ---
APPROVED REPORT EXAM: Two-dimensional and M-mode echocardiogram with Doppler and color Doppler. Blood Pressure: 116/73 mmHg INDICATION Heart Failure Surgery/Intervention Valve Replacement: Type: AV RISK FACTORS Height: 5'2", Weight: 166 DIMENSIONS LVDd4.8 (3.8-5.7cm)LA (2D)4.4 (1.9-4.0cm)Aortic Root2.7 (2.0-3.7cm) LVDs3.4 (2.5-4.0cm)LA (MM) (1.9-4.0cm)Aortic Cusp Exc0.4 (1.5-2.0cm) EF (%) 55.0 (55-70%)Rt. Atrium (1.9-4.0cm)Asc. Aorta cm IVSd1.4 (0.7-1.1cm)RV (D) (1.8-2.4cm) PWd0.8 (0.7-1.1cm) Mitral Valve MitralMitral Stenosis E wavem/sMV Mean GR.7mmHg A wavem/sMV Peak GR.17mmHg E/A ratio0.02D MVAcm2 DECEL [employer] 1/2 [id number] IVRTmsDop MVA6.24cm2 Aortic Valve Aortic ValveAortic Stenosis V10.83m/Gerda Mean GR.66mmHg V24.80m/Gerda Peak GR.92mmHg LVOT Diameter1.9 (1.8-2.4cm)Doppler AVA0.49cm2 Pulmonic Valve V20.90m/s Tricuspid Valve TR Velocity3.25m/s [id number] Other Information Quality : Technically LimitedRhythm : Technically limited study due to pt sitting up on BiPap Conclusion Technically limited study secondary to poor acoustic windows. Left ventricle: Mild concentric left ventricular hypertrophy was seen. LVEF was 55-60%. Even thoug h no gross wall motion abnormality was observed, its presence can not be ruled out and the basis of t his study. Right ventricle is normal size with normal systolic function. Both atria were mildly dilated. Aortic valve: Presence of previous Bioprosthetic valve in Aortic position cannot be ruled out. It was mild insufficiency. Severe stenosis was observed (peak/mean pressure gradient across the aortic chrissie ve was 92/65 mm Hg and calculated aortic valve area was 0.6 cm) Mitral valve: Mild mitral regurgitation was seen. Mild mitral annular calcification was observed. There was mild tricuspid regurgitation. Pulmonary valve revealed mild insufficiency. Right ventricular systolic pressure was assessed around 62 mm Hg. There was no pericardial effusion. Consider TRIP for further evaluation of aortic valve.
[2024-03-26] MEDS: ASPirin 81 mg TAB PO ONE (18:28)
[2024-03-26] MEDS: dilTIAZem 25 MG/5 ML VIAL IV ONE ×2 (20:15→20:17)
[2024-03-26 20:47] LABS: Base Excess 1.7 mmol/L (-2.0-3.0)
[2024-03-26] MEDS: ALBUMIN 25% 50 ML IV ONE (20:59)
[2024-03-26] MEDS: AMIODARONE 360mg/200mL PREMIX 200 ML IV ONE (21:01)
[2024-03-26 21:11] LABS: Potassium 3.5 mmol/L (3.5-5.1); Potassium 3.7 mmol/L (3.5-5.1)
[2024-03-26 21:12] LABS: Anion Gap 11 (5-15); Calcium 9.6 mg/dL (8.7-10.4); Carbon Dioxide 26 mmol/L (20-31)
[2024-03-26 21:17] LABS: BUN/Creatinine Ratio 31.3 (10.0-20.0); Blood Urea Nitrogen 21 mg/dL (9-23)
[2024-03-26 21:18] LABS: Magnesium 2.1 mg/dL (1.6-2.6)
[2024-03-26 21:30] LABS: Chloride 95 mmol/L (98-107); Glucose 125 mg/dL (74-106); Sodium 132 mmol/L (136-145)
--- NOTE | 2024-03-26 21:48 | RESUS ---
CODE ASSIST ASSESSSMENT Initial Information Code Assist Date: Mar 26, 2024 Code Assist Time: 20:11 Location of Arrest: [facility] Provider Name REGINALDO Time Notified: 20:11 Time PMD returned call: 20:11 Situation Staff concerned/worried, speci: HR >130 Situation comment: Patient on BIPAP for shortness of breath, patient heart rate toggling between 150s and 180s. Code Assist activated. Dr Mcdonald cardiology notified, pt started amiodorone as protocol. Background Background: 88F BIBA w/ prior Hx of Heart Valve Replacement which may be associated to the c/c of CPAP. EMS state that the pt woke up 3 minutes ago at 0727 w/ SOB and family gave the pt 2L NC at home which the pt was SAT at 87% on scene. EMS gave the pt a CPAP en rout to the ED due from her work of breathe going down from them being on scene. Pt [id number] nodded that she did have cough as well. PMHx of HLD. Assessment Temperature (Fahrenheit): 97.8 Blood Pressure Systolic: 107 Blood Pressure Diastolic: 76 Respiratory Rate: 16 O2 Sat by Pulse Oximetry: 98 Bedside Blood Glucose: 130 Assessment comment: PT AAOX4, ON BIPAP, DENIES ANY CP, SOB OR PAIN. Recommendations/Interventions Procedures: Accu check, CMP, Troponin Other Interventions CARDIAZEM 10MG IV, ALBUMIN 25% 50 ML, AMIODORONE PER PROTOCOL Outcome Outcome: Problem Resolved Follow up Report Follow up Report hr 80s Team Members Team Members REGINALDO CLOTH PRINTER, MARÍA LUNDBERG, THIAGO LUNDBERG, KARTIK RN HS, CASSIA SCREEN PRINTING SUPERVISOR ICU, TERESA JAMES, YAYA SCREEN PRINTING SUPERVISOR, OMER BEATTY RT, JOVANI RT. KARTIK MORTON Mar 26, 2024 21:48
[2024-03-26] MEDS ORDERED: DORZOLAMIDE HCL 2% OPTH(EYE) SOL 10ML EACHEYE SCH (22:00)
[2024-03-26] MEDS: DORZOLAMIDE HCL 2% OPTH(EYE) SOL 10ML EACHEYE SCH (22:00)
--- NOTE | 2024-03-26 22:19 | DVH ---
CHEST RADIOGRAPH Indication: SOB Technique: Single frontal view of the chest was obtained COMPARISON: XY CHEST PORTABLE on DOS: 03/25/24 FINDINGS: Lines and Tubes: None Lungs: Mild interstitial pulmonary edema. Pleura: Small bilateral effusions. No pneumothorax. Cardiomediastinal contours: Cardiomegaly Bones: Unremarkable IMPRESSION: 1. Mild interstitial pulmonary edema. 2. Small bilateral effusions.
[2024-03-26] MEDS: ENOXAPARIN SOD 80 MG/0.8ML SYRINGE SC SCH (23:15)
[2024-03-27] VITALS (21 sets, daily range): BP systolic 83–109; BP diastolic 34–62; PULSE 50–144; RESP 16–24; TEMP 97.2–98.2; O2SAT 94–100
[2024-03-27] MEDS: AMIODARONE 360mg/200mL PREMIX 200 ML IV SCH (02:02)
--- NOTE | 2024-03-27 06:44 | DVH ---
CHEST RADIOGRAPH Indication: RESP FAILURE Technique: Single frontal view of the chest was obtained Comparison: XY CHEST XRAY 1 VIEW on DOS: 03/26/24, XY CHEST PORTABLE on DOS: 03/25/24, XY CHEST XRAY 1 VIEW on DOS: 03/26/24 FINDINGS: Lines and Tubes: None Lungs: Mild interstitial pulmonary edema. Pleura: Small bilateral effusions. No pneumothorax. Cardiomediastinal contours: Cardiomegaly Bones: Unremarkable IMPRESSION: 1. Mild interstitial pulmonary edema. 2. Small bilateral effusions.
[2024-03-27 06:58] LABS: Basophils # (auto) 0 10 ^3/uL (0-0.2); Basophils % (auto) 0.1 % (0.0-2.0); Eosinophils # (auto) 0.1 10 ^3/uL (0-0.8); Eosinophils % (auto) 0.6 % (0.0-7.0); Hematocrit 36.6 % (36.0-46.0); Hemoglobin 12.6 g/dL (12.2-16.2); Lymphocytes # (auto) 1.9 10 ^3/uL (0.4-5.4); Lymphocytes % (auto) 18.8 % (10.0-50.0); Mean Corpuscular Hemoglobin 33.1 pg (28.0-32.0); Mean Corpuscular Hgb Conc. 34.4 g/dL (32.0-36.0); Mean Corpuscular Volume 96.2 fL (80.0-100.0); Monocytes # (auto) 1.1 10 ^3/uL (0-1.3); Monocytes % (auto) 10.7 % (0.0-12.0); Neutrophils # (auto) 7.2 10 ^3/uL (1.6-8.6); Neutrophils % (auto) 69.8 % (37.0-80.0); Platelet Count (auto) 212 10^3/uL (140-450); Red Blood Cells 3.81 10^6/uL (4.0-5.20); Red Cell Distribution Width 13.3 % (11.8-14.3); White Blood Cell 10.4 10^3/uL (4.4-10.8)
[2024-03-27 07:22] LABS: Alanine Aminotransferase 35 U/L (7-40); Albumin 3.9 g/dL (3.2-4.8); Alkaline Phosphatase 68 U/L (46-116); Anion Gap 9 (5-15); BUN/Creatinine Ratio 25.3 (10.0-20.0); Blood Urea Nitrogen 20 mg/dL (9-23); Calcium 9.4 mg/dL (8.7-10.4); Carbon Dioxide 29 mmol/L (20-31); Potassium 3.8 mmol/L (3.5-5.1)
[2024-03-27 07:23] LABS: Bilirubin, Total 0.8 mg/dL (0.2-1.0); Total Protein 6.3 g/dL (5.7-8.2)
[2024-03-27 07:24] LABS: Aspartate Aminotransferase 141 U/L (13-40); Chloride 95 mmol/L (98-107); Glucose 129 mg/dL (74-106); Sodium 133 mmol/L (136-145)
[2024-03-27] MEDS: fentaNYL CITRATE 100 MCG/2 ML VL IV ONE ×2 (08:30→11:45)
[2024-03-27] MEDS: MIDAZOLAM HCL 2MG/2ML 2ml VIAL (1mg/ml) IV ONE (08:30)
[2024-03-27] MEDS: LIDOCAINE VISCOUS 2% 15ML UD PO ONE (08:30)
[2024-03-27] MEDS ORDERED: fentaNYL CITRATE 100 MCG/2 ML VL IV ONE (09:00)
[2024-03-27] MEDS ORDERED: MIDAZOLAM HCL 2MG/2ML 2ml VIAL (1mg/ml) IV ONE (09:00)
[2024-03-27] MEDS ORDERED: LIDOCAINE VISCOUS 2% 15ML UD PO ONE (09:00)
[2024-03-27] MEDS: LIDOCAINE 2%HCL (LOCAL ANESTH.) INJ 20ML MDV ONE (09:35)
[2024-03-27] MEDS: VERAPAMIL 2.5MG/ML INJ 2ML VIAL IV ONE (09:35)
[2024-03-27] MEDS: HEPARIN SODIUM (PORCINE) 5000 UNITS/ML 1ML VIAL ONE (09:35)
[2024-03-27] MEDS: ANGIOMAX 250 MG VIAL IV ONE (09:35)
[2024-03-27] MEDS: SODIUM CHL 0.9% 0 ML ONE (09:36)
[2024-03-27] MEDS: IODIXANOL 320MG/ML 100ML BTL IV ONE (09:39)
[2024-03-27] MEDS: ASPirin 81 mg TAB PO SCH (10:00)
[2024-03-27] MEDS: PANTOPRAZOLE 40 MG/10 ML VIAL INJ IV SCH (10:00)
--- NOTE | 2024-03-27 10:05 | DVHOP2 ---
Operative Report Trans-Esophageal Echocardiogram PROCEDURE REPORT Date of Service: 03/27/2024 Ac/Dc Rewinder: Jazlyn Lr MD PROCEDURE PERFORMED: Transesophageal echocardiogram, conscious sedation administration and supervision, more than 15 minutes. Intra cardiac bubble study. PREOPERATIVE DIAGNOSES: r/o Valvular heart disease//Restenosis of AVR. DESCRIPTION OF PROCEDURE: The patient signed informed consent understanding risks, benefits and alternatives of the procedure, he wished to proceed. The patient was given 15 mL of oral viscous lidocaine. She was placed in a left lateral decubitus position and conscious sedation was administered per labor relations or personnel negotiator protocol (1 mg of Versed and 25 mcg of Fentanyl). I administered a bite block into her mouth and a TRIP probe into the mid esophagus without any difficulties or complications. Multiple planar images were obtained. Bubble study was also performed. At the completion of procedure, TRIP probe was removed and there were no immediate complications. Vitals signs were stable throughout the procedure. FINDINGS: 1. Left ventricle: Mild concentrated Left ventricular hypertrophy was seen. LVEF was 55%. There was no gross wall motion abnormality seen. 2. Right ventricle: Normal RV size with normal systolic function. 3. Left atrium: LA enlarged 4. Right atrium: RA was enlarged 5. Mitral valve: Moderate Mitral regurgitation, no significant stenosis, normal functioning valve 6. Left atrial appendage: No evidence of thrombus. 7. Aortic valve: There was previously tissue prosthetic valve in Aortic position. There was significant restriction of leaflet movements. Hyperechoic areas restricting movement were seen. Planinometry revealed HARSH of 0.3 cm. Limited images / velocities were obtained via transthoracic approach: Peak / Mean pressure gradient were 115/72 mmHg. Calculated HARSH (continuity formula) was 0.5 cm. 8. Pulmonic valve: Trivial pulmonic insufficiency. No significant stenosis. 9. Tricuspid valve: Mild tricuspid regurgitation. 10. Interatrial septum: Negative color flow for right to left shunt was observed. Bubble study was negative. 11. Pericardium: No significant effusion. 12. Thoracic aorta: No significant plaquing. Severe Aortic stenosis. Severe stenosis of previous tissue type Aortic Valve Replacement JAZLYN LR MD Mar 27, 2024 10:05
--- NOTE | 2024-03-27 11:14 | DVHOP2 ---
Operative Report Procedures performed: Bilateral coronary angiogram Moderate sedation Diagnosis: Nonobstructive coronary artery disease Cardiac suggestion for management: Optimized medical therapy Lifestyle and risk factor modification Referral to Cardiothoracic surgery/higher level of care for management of significant bioprosthetic aortic valve stenosis (restenosis of bioprosthetic aortic valve, diagnosed by transthoracic echocardiogram/transesophageal echocardiogram) Findings: Left main: Left main was coming off the left sinus of Valsalva. There was no angiographic evidence of disease in left main. LCX: LCX was coming off the left main. It was a dominant vessel and provided LPDA. It also provided 3 medium-sized obtuse marginals. LCX throughout its course and branches revealed mild disease. Ramus intermedius: Ramus intermedius was a small to medium-sized vessel which came off the left main. Ramus intermedius did not reveal any angiographic evidence of disease. LAD: LAD was coming off the left main. It provided a medium to large-sized 1st diagonal and small to medium-sized 2nd diagonal. Mid LAD had up to 40% focal lesion. D1 had up to 70% ostial lesion. Other portions of LAD and branches revealed mild diffuse disease. RCA: RCA was nondominant and small-caliber vessel and came off the right sinus of Valsalva. Presentation: Patient is a 88-year-old female who presented to the hospital with shortness of breath. She does have history of aortic valve replacement (bioprosthetic), many years ago. She was found to have acute on chronic the diastolic heart failure with component of type 2 pulmonary hypertension. She did have episodes of atrial fibrillation with RVR. She did leak troponin. Echocardiogram revealed significant stenosis of aortic valve (there was a previous bioprosthetic valve in aortic position). Transesophageal echocardiogram was performed which revealed significant stenosis of bioprosthetic aortic valve. Patient was sent for cardiac catheterization. Procedure: After obtaining informed consent, the patient was brought to the manufacturing laborer. She was prepped and draped in sterile fashion. Right femoral artery was used for access site. 1 mg of Versed and 25 mcg of fentanyl were used for moderate sedation. Under fluoroscopy guidance and with the use of a micropuncture, right femoral artery was accessed. Over a wire, micropuncture sheath was exchanged to a femoral sheath. A 6 Tunisian JL4 diagnostic catheter was used to perform left coronary angiography. A 6 Tunisian JR4 diagnostic catheter was used to perform non selective right coronary angiography. There was no indication for any transcatheter revascularization. As the patient has been diagnosed to have significant bioprosthetic valve stenosis at aortic position, we did not attempt to cross the aortic valve. Total bleeding was less than 10 mL. There was no dissection/hematoma/perforation. Patient tolerated the procedure with no complication. Right femoral artery access site was managed by manual pressure. Fluoroscopy time: 3.4 minutes contrast: 85 mL of JAZLYN Haji MD Mar 27, 2024 11:14
--- NOTE | 2024-03-27 11:17 | DVHPN2 ---
Progress Note Date Seen: Mar 27, 2024 Medical Necessity Reason Pt with a Central, PICC or Fol: Yes The following are medically ne: Bob Catheter Reason for bob catheter: Strict I&O Subjective Patient reports: No new complaints Review of Systems: HEENT:Normal, CVS:Normal, RESPIRATORY:Normal, GI:Normal, :Normal, MSK:Normal, NEURO:Normal Objective vital signs Vital Sign Date Time Temp Pulse Resp B/P (MAP) Pulse Ox O2 Delivery O2 Flow Rate FiO2 03/27/24 09:00 97.6 52 18 99/47 (64) 95 97.6 03/27/24 08:00 Nasal Cannula* 2 28 Total Intake and Output 03/26/24 03/26/24 03/27/24 15:00 23:00 07:00 Intake Total 570 ml 266.64 ml Output Total 1300 ml 1150 ml Balance -730 ml -883.36 ml medications Current Medications Medications Dose Ordered Sig/Bijan Route Start Time Stop Time Status Last Admin Dose Admin Acetaminophen 650 mg Q6HP PRN PO 03/25/24 13:30 Nitroglycerin 0.4 mg Q5MINP PRN SL 03/25/24 13:30 Morphine Sulfate 2 mg Q30M PRN IV 03/25/24 13:30 03/26/24 08:00 2 MG Pantoprazole Sodium 40 mg DAILY IV 03/27/24 10:00 Enoxaparin Sodium 80 mg Q12HR SC 03/26/24 22:00 03/26/24 23:15 80 MG Dorzolamide HCl 1 drop BID@0700,2200 EACHEYE 03/26/24 22:00 Furosemide 40 mg BIDD IV 03/26/24 18:00 03/27/24 05:54 40 MG Aspirin 81 mg DAILY PO 03/27/24 10:00 Examination: GENERAL:Normal, HEENT:Normal, NECK:Normal, LUNGS:Normal, LUNGS:Abnormal (on oxygen ), CVS:Normal, ABDOMEN:Normal, MSK:Normal, SKIN:Normal, NEURO:Normal, :Normal laboratory and microbiology Laboratory Tests 03/27/24 06:15 Test 03/27/24 06:15 Range/Units Serum Glucose 129 H 74-106 mg/dL Problem List/Assessment/Plan Problem List/Assessment/Plan #1 acute resp failure: bipap, abg #2 acute systolic/diastolic heart failure: lasix iv #3 s/p tavr: echo #4 hyperlipidemia #5 htn #6 nstemi: c angio #7 severe #8 ? a fib: on amiodarone transfer to [facility] advance care planning- full code- time spent 21 mins Plan discussed with: Other (rn) My Orders My Orders Orders - ERNESTO BANEGAS MD Procedure Category Date Status Time Dorzolamide 2% PHA 03/26/24 In Process Opthalmic (Trusopt 2% 22:00 Date of Service: Mar 27, 2024 Billing Provider: ERNESTO BANEGAS MD Common Visit Codes: 80885-DSGFNVYOVX INP/OBS CARE(HIGH) Secondary Visit Codes: 09080-[id number] CARE PLAN 30 MINUTES ERNESTO BANEGAS MD Mar 27, 2024 11:17
--- NOTE | 2024-03-27 11:26 | DVHPN2 ---
Progress Note - Dictate Date Seen: Mar 27, 2024 Medical Necessity Reason Pt with a Central, PICC or Fol: Yes The following are medically ne: Bob Catheter Reason for bob catheter: Strict I&O vital signs Vital Sign Date Time Temp Pulse Resp B/P (MAP) Pulse Ox O2 Delivery O2 Flow Rate FiO2 03/27/24 09:00 97.6 52 18 99/47 (64) 95 97.6 03/27/24 08:00 Nasal Cannula* 2 28 Total Intake and Output 03/26/24 03/26/24 03/27/24 15:00 23:00 07:00 Intake Total 570 ml 266.64 ml Output Total 1300 ml 1150 ml Balance -730 ml -883.36 ml medications Current Medications Medications Dose Ordered Sig/Bijan Route Start Time Stop Time Status Last Admin Dose Admin Acetaminophen 650 mg Q6HP PRN PO 03/25/24 13:30 Nitroglycerin 0.4 mg Q5MINP PRN SL 03/25/24 13:30 Morphine Sulfate 2 mg Q30M PRN IV 03/25/24 13:30 03/26/24 08:00 2 MG Pantoprazole Sodium 40 mg DAILY IV 03/27/24 10:00 Enoxaparin Sodium 80 mg Q12HR SC 03/26/24 22:00 03/26/24 23:15 80 MG Dorzolamide HCl 1 drop BID@0700,2200 EACHEYE 03/26/24 22:00 Furosemide 40 mg BIDD IV 03/26/24 18:00 03/27/24 05:54 40 MG Aspirin 81 mg DAILY PO 03/27/24 10:00 laboratory and microbiology Laboratory Tests 03/27/24 06:15 Test 03/27/24 06:15 Range/Units Serum Glucose 129 H 74-106 mg/dL Assessment/Plan Patient had episode of atrial fibrillation with RVR last night. She was started on amiodarone drip. Her labs revealed increased troponin. Patient is a 88-year-old female who presented to the hospital with shortness of breath. It seems that the patient was found by EMS with oxygen saturation of 87% at home. Later, the patient was started on CPAP and was given Lasix which improved her clinical status. It is reported that she has had more fluids and chips/mercer prior to presentation. Later on tele floor she got more short of breath and was started on BiPAP. Cardiology is involved for cardiac aspects of care. Patient is known to our practice from outside. 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 It is of note that echocardiogram of November 2023 had revealed some component of aortic stenosis. Overweight female. Using accessory muscles of breathing. Mucosa is pink and wet. No goiter. Long examination reveals scattered rhonchi/rales. Cardiac: Irregular, systolic murmur 3/6 in the apex/base is heard. Abdomen is soft. Bowel sound is positive. Mild hepatomegaly is observed. Extremities reveal 2+ edema. Dorsalis pedis is 2+ bilateral. Past medical history includes valvular heart disease and status post TAVR, DJD, GERD, gallstones, neuropathy and pulmonary hypertension. Echocardiogram of December 05, 2023 (performed in the office) revealed mild concentric left ventricular hypertrophy, ejection fraction 60 65%, moderate left atrial enlargement, right ventricular systolic pressure 41 mm Hg, mild TR, mild mitral annular calcification, trace PI, aortic valve replacement with up to moderate stenosis, trace aortic insufficiency. WBC: 12.3 - 11.9 - 10.4 D-dimer: 0.97 Creatinine: 0.88 - 1.09 - 0.67 - 0.79 Potassium: 4.4 - 4.2 - 3.5 - 3.7 - 3.8 AST/ALT: 30/21 - 180/107 - 141/35 Troponin (high sensitive): 37 - 75 - 131 - 9939 - 19914 - 55746 - 66030 BNP: 421.38 Chest x-ray reported: Lines and Tubes: None Lungs: No focal consolidation. Pleura: No effusion. No pneumothorax. Cardiomediastinal contours: Cardiomegaly Bones: No acute osseous abnormality. IMPRESSION: Cardiomegaly with chf Repeat chest x-ray revealed: IMPRESSION: 1. Mild interstitial pulmonary edema. 2. Small bilateral effusions. Repeat chest x-ray revealed: IMPRESSION: 1. Mild interstitial pulmonary edema. 2. Small bilateral effusions. EKG reveals sinus tachycardia with left bundle branch block Tele reveals sinus tachycardia with left bundle branch block Echocardiogram reported: Technically limited study secondary to poor acoustic windows. Left ventricle: Mild concentric left ventricular hypertrophy was seen. LVEF was 55-60%. Even though no gross wall motion abnormality was observed, its presence can not be ruled out and the basis of this study. Right ventricle is normal size with normal systolic function. Both atria were mildly dilated. Aortic valve: Presence of previous Bioprosthetic valve in Aortic position cannot be ruled out. It was mild insufficiency. Severe stenosis was observed (peak/mean pressure gradient across the aortic valve was 92/65 mm Hg and calculated aortic valve area was 0.6 cm). Mitral valve: Mild mitral regurgitation was seen. Mild mitral annular calcification was observed. There was mild tricuspid regurgitation. Pulmonary valve revealed mild insufficiency. Right ventricular systolic pressure was assessed around 62 mm Hg. There was no pericardial effusion. Consider TRIP for further evaluation of aortic valve. Transesophageal echocardiogram was performed: Revealed significant bioprosthetic aortic valve stenosis, peak/mean pressure gradient across aortic valve was 115/72 mm Hg and calculated aortic valve area was 0.5 centimeter Left heart catheterization was performed: Revealed nonobstructive coronary artery disease Patient is a 88-year-old female presented with shortness of breath. She was found to have acute heart failure. Does have history of valvular heart disease an echocardiogram is in favor of significant aortic stenosis (valve restenosis?). Does have component of pulmonary hypertension which can be considered type 2. He is found to have mildly abnormal D-dimer. She did have episode of atrial fibrillation with RVR. Later, she leaked troponin questioning non-STEMI. She did have TRIP which confirmed significant bioprosthetic aortic valve stenosis. She did have left heart catheterization which did not reveal any significant coronary disease. Abnormal troponin is considered to reflects type 2 physiology at this point. Referral to higher level of care for management of significant bioprosthetic aortic valve stenosis is suggested. Severe bioprosthetic aortic valve stenosis New onset atrial fibrillation Atrial fibrillation with RVR Status post TRIP Status post left heart catheterization Short of breath Acute respiratory failure Acute heart failure, diastolic Valvular heart disease s/p TAVR COPD exacerbation Obesity Abnormal D-dimer Cardiac suggestion for management: Manage in MARIELLA Respiratory support, BiPAP/CPAP IV Lasix (40 mg twice daily) Follow-up electrolytes and kidney function test and correct abnormalities. Keep potassium above 4 and magnesium above 2 IV amiodarone, to be continued Full anticoagulation (started on Lovenox, therapeutic dose), recognizing atrial fibrillation with high CHADS-VASc score Aspirin: 81 mg daily Needs transferred to high level of care for management of bioprosthetic aortic valve stenosis. [facility] has accepted patient. A total of 55 minutes was spent reviewing the patient record, examining the patient, making a diagnostic and therapeutic plan, discussing this plan with medical personnel, following up on diagnostic studies and following the patient for clinical stability excluding any and all procedures. At least 50% of this time was spent in direct, [id number] contact. Thank you for allowing me to participate in this patient's care. Further recommendations will depend on patient's clinical course. Please do not hesitate to contact me if you have any questions or concerns. This medical document was created using electronic medical record system with [employer] computerized dictation system. Although this document has been carefully reviewed, there may still be some phonetic and typographical errors. These areas are purely typographical due to the imperfection of the software programs, and do not reflect any compromise in the patient's medical care. Plan discussed with: Patient, Spouse, Son, Other (nurse) JAZLYN LR MD Mar 27, 2024 11:26
[2024-03-27] MEDS: SODIUM CHLORIDE 0.9% 1,000 ML IV SCH (14:15)
[2024-03-27] MEDS: ACETAMINOPHEN 325 MG TAB PO PRN (15:21)
[2024-03-27] MEDS: AMIODARONE 360mg/200mL PREMIX 200 ML IV PRN (22:26)
[2024-03-28] VITALS (14 sets, daily range): BP systolic 93–121; BP diastolic 41–64; PULSE 51–130; RESP 16–20; TEMP 97.5–98; O2SAT 93–100
[2024-03-28 06:28] LABS: Anion Gap 6 (5-15); Carbon Dioxide 31 mmol/L (20-31); Potassium 3.6 mmol/L (3.5-5.1)
[2024-03-28 06:29] LABS: Calcium 9.3 mg/dL (8.7-10.4)
[2024-03-28 06:34] LABS: BUN/Creatinine Ratio 22.1 (10.0-20.0); Blood Urea Nitrogen 15 mg/dL (9-23); Magnesium 1.9 mg/dL (1.6-2.6)
[2024-03-28 06:35] LABS: Chloride 94 mmol/L (98-107); Glucose 133 mg/dL (74-106); Sodium 131 mmol/L (136-145)
--- NOTE | 2024-03-28 07:36 | DVHPN2 ---
Progress Note - Dictate Date Seen: Mar 28, 2024 Medical Necessity Reason Pt with a Central, PICC or Fol: Yes The following are medically ne: Bob Catheter Reason for obb catheter: Strict I&O vital signs Vital Sign Date Time Temp Pulse Resp B/P (MAP) Pulse Ox O2 Delivery O2 Flow Rate FiO2 03/28/24 05:25 94/52 03/28/24 05:00 97.9 111 19 100 97.9 03/27/24 20:00 Nasal Cannula* 2 28 Total Intake and Output 03/27/24 03/27/24 03/28/24 15:00 23:00 07:00 Intake Total 740 ml 1140 ml Output Total 1000 ml 1200 ml Balance -260 ml -60 ml medications Current Medications Medications Dose Ordered Sig/Bijan Route Start Time Stop Time Status Last Admin Dose Admin Acetaminophen 650 mg Q6HP PRN PO 03/25/24 13:30 03/27/24 15:21 650 MG Nitroglycerin 0.4 mg Q5MINP PRN SL 03/25/24 13:30 Morphine Sulfate 2 mg Q30M PRN IV 03/25/24 13:30 03/26/24 08:00 2 MG Pantoprazole Sodium 40 mg DAILY IV 03/27/24 10:00 Enoxaparin Sodium 80 mg Q12HR SC 03/26/24 22:00 03/27/24 22:23 80 MG Dorzolamide HCl 1 drop BID@0700,2200 EACHEYE 03/26/24 22:00 03/28/24 05:15 1 DROP Furosemide 40 mg BIDD IV 03/26/24 18:00 03/27/24 18:04 40 MG Aspirin 81 mg DAILY PO 03/27/24 10:00 Sodium Chloride 1,000 ml @ 60 mls/hr [id number] IV 03/27/24 13:15 03/28/24 05:26 60 MLS/HR laboratory and microbiology Laboratory Tests 03/28/24 05:22 03/27/24 06:15 Test 03/28/24 05:22 Range/Units Serum Glucose 133 H 74-106 mg/dL Assessment/Plan Patient had episode of atrial fibrillation with RVR last night. She was started on amiodarone drip. Her labs revealed increased troponin. Patient is a 88-year-old female who presented to the hospital with shortness of breath. It seems that the patient was found by EMS with oxygen saturation of 87% at home. Later, the patient was started on CPAP and was given Lasix which improved her clinical status. It is reported that she has had more fluids and chips/mercer prior to presentation. Later on tele floor she got more short of breath and was started on BiPAP. Cardiology is involved for cardiac aspects of care. Patient is known to our practice from outside. 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 It is of note that echocardiogram of November 2023 had revealed some component of aortic stenosis. Overweight female. Using accessory muscles of breathing. Mucosa is pink and wet. No goiter. Long examination reveals scattered rhonchi/rales. Cardiac: Irregular, systolic murmur 3/6 in the apex/base is heard. Abdomen is soft. Bowel sound is positive. Mild hepatomegaly is observed. Extremities reveal 2+ edema. Dorsalis pedis is 2+ bilateral. Past medical history includes valvular heart disease and status post TAVR, DJD, GERD, gallstones, neuropathy and pulmonary hypertension. Echocardiogram of December 05, 2023 (performed in the office) revealed mild concentric left ventricular hypertrophy, ejection fraction 60 65%, moderate left atrial enlargement, right ventricular systolic pressure 41 mm Hg, mild TR, mild mitral annular calcification, trace PI, aortic valve replacement with up to moderate stenosis, trace aortic insufficiency. WBC: 12.3 - 11.9 - 10.4 D-dimer: 0.97 Creatinine: 0.88 - 1.09 - 0.67 - 0.79 - 0.68 Potassium: 4.4 - 4.2 - 3.5 - 3.7 - 3.8 - 3.6 AST/ALT: 30/21 - 180/107 - 141/35 Troponin (high sensitive): 37 - 75 - 131 - 9939 - 26714 - 84886 - 46048 BNP: 421.38 Chest x-ray reported: Lines and Tubes: None Lungs: No focal consolidation. Pleura: No effusion. No pneumothorax. Cardiomediastinal contours: Cardiomegaly Bones: No acute osseous abnormality. IMPRESSION: Cardiomegaly with chf Repeat chest x-ray revealed: IMPRESSION: 1. Mild interstitial pulmonary edema. 2. Small bilateral effusions. Repeat chest x-ray revealed: IMPRESSION: 1. Mild interstitial pulmonary edema. 2. Small bilateral effusions. EKG reveals sinus tachycardia with left bundle branch block Tele reveals sinus tachycardia with left bundle branch block, later: a-fib with RVR, then a-fib with MVR and again: afib with rvr Echocardiogram reported: Technically limited study secondary to poor acoustic windows. Left ventricle: Mild concentric left ventricular hypertrophy was seen. LVEF was 55-60%. Even though no gross wall motion abnormality was observed, its presence can not be ruled out and the basis of this study. Right ventricle is normal size with normal systolic function. Both atria were mildly dilated. Aortic valve: Presence of previous Bioprosthetic valve in Aortic position cannot be ruled out. It was mild insufficiency. Severe stenosis was observed (peak/mean pressure gradient across the aortic valve was 92/65 mm Hg and calculated aortic valve area was 0.6 cm). Mitral valve: Mild mitral regurgitation was seen. Mild mitral annular calcification was observed. There was mild tricuspid regurgitation. Pulmonary valve revealed mild insufficiency. Right ventricular systolic pressure was assessed around 62 mm Hg. There was no pericardial effusion. Consider STEVE for further evaluation of aortic valve. Transesophageal echocardiogram was performed: Revealed significant bioprosthetic aortic valve stenosis, peak/mean pressure gradient across aortic valve was 115/72 mm Hg and calculated aortic valve area was 0.5 centimeter Left heart catheterization was performed: Revealed nonobstructive coronary artery disease Patient is a 88-year-old female presented with shortness of breath. She was found to have acute heart failure. Does have history of valvular heart disease an echocardiogram is in favor of significant aortic stenosis (valve restenosis?). Does have component of pulmonary hypertension which can be considered type 2. He is found to have mildly abnormal D-dimer. She did have episode of atrial fibrillation with RVR. Later, she leaked troponin questioning non-STEMI. She did have STEVE which confirmed significant bioprosthetic aortic valve stenosis. She did have left heart catheterization which did not reveal any significant coronary disease. Abnormal troponin is considered to reflects type 2 physiology at this point. Referral to higher level of care for management of significant bioprosthetic aortic valve stenosis is suggested. Severe bioprosthetic aortic valve stenosis New onset atrial fibrillation Atrial fibrillation with RVR Status post STEVE Status post left heart catheterization Short of breath Acute respiratory failure Acute heart failure, diastolic Valvular heart disease s/p TAVR COPD exacerbation Obesity Abnormal D-dimer Cardiac suggestion for management: Manage in MARIELLA Respiratory support, BiPAP/CPAP IV Lasix (40 mg twice daily) Follow-up electrolytes and kidney function test and correct abnormalities. Keep potassium above 4 and magnesium above 2 IV amiodarone, to be continued Full anticoagulation (started on Lovenox, therapeutic dose), recognizing atrial fibrillation with high CHADS-VASc score Aspirin: 81 mg daily Needs transferred to high level of care for management of bioprosthetic aortic valve stenosis. [facility] [place] has accepted patient. Please send a copy of imaging/CD of cardiac catheterization/steve/echocardiogram with reports to the higher level of care A total of 55 minutes was spent reviewing the patient record, examining the patient, making a diagnostic and therapeutic plan, discussing this plan with medical personnel, following up on diagnostic studies and following the patient for clinical stability excluding any and all procedures. At least 50% of this time was spent in direct, [id number] contact. Thank you for allowing me to participate in this patient's care. Further recommendations will depend on patient's clinical course. Please do not hesitate to contact me if you have any questions or concerns. This medical document was created using electronic medical record system with Locally computerized dictation system. Although this document has been carefully reviewed, there may still be some phonetic and typographical errors. These areas are purely typographical due to the imperfection of the software programs, and do not reflect any compromise in the patient's medical care. Plan discussed with: Patient, Other (nurse) JAZLYN LR MD Mar 28, 2024 07:36
--- NOTE | 2024-03-28 11:23 | DVHDS2 ---
Discharge Summary Date of Admission Mar 25, 2024 at 13:20 Date of Discharge: Mar 28, 2024 Labs/Diagnostic Data: Laboratory Results Test 03/28/24 05:22 03/27/24 06:15 03/26/24 20:39 03/26/24 20:14 Sodium Level 131 mmol/L (136-145) Potassium Level 3.6 mmol/L (3.5-5.1) Chloride Level 94 mmol/L (98-107) Carbon Dioxide Level 31 mmol/L (20-31) Anion Gap 6 (5-15) Blood Urea Nitrogen 15 mg/dL (9-23) Creatinine 0.68 mg/dL (0.550-1.02) Glomerular Filtration Rate Calc 84 mL/min (>90) BUN/Creatinine Ratio 22.1 (10.0-20.0) Serum Glucose 133 mg/dL (74-106) Calcium Level 9.3 mg/dL (8.7-10.4) Magnesium Level 1.9 mg/dL (1.6-2.6) White Blood Count 10.4 10^3/uL (4.4-10.8) Red Blood Count 3.81 10^6/uL (4.0-5.20) Hemoglobin 12.6 g/dL (12.2-16.2) Hematocrit 36.6 % (36.0-46.0) Mean Corpuscular Volume 96.2 fL (80.0-100.0) Mean Corpuscular Hemoglobin 33.1 pg (28.0-32.0) Mean Corpuscular Hemoglobin Concent 34.4 g/dL (32.0-36.0) Red Cell Distribution Width 13.3 % (11.8-14.3) Platelet Count 212 10^3/uL (140-450) Mean Platelet Volume 8.3 fL (6.9-10.8) Neutrophils (%) (Auto) 69.8 % (37.0-80.0) Lymphocytes (%) (Auto) 18.8 % (10.0-50.0) Monocytes (%) (Auto) 10.7 % (0.0-12.0) Eosinophils (%) (Auto) 0.6 % (0.0-7.0) Basophils (%) (Auto) 0.1 % (0.0-2.0) Neutrophils # (Auto) 7.2 10 ^3/uL (1.6-8.6) Lymphocytes # (Auto) 1.9 10 ^3/uL (0.4-5.4) Monocytes # (Auto) 1.1 10 ^3/uL (0-1.3) Eosinophils # (Auto) 0.1 10 ^3/uL (0-0.8) Basophils # (Auto) 0 10 ^3/uL (0-0.2) Nucleated Red Blood Cells 0.0 % Total Bilirubin 0.8 mg/dL (0.2-1.0) Aspartate Amino Transferase (AST) 141 U/L (13-40) Alanine Aminotransferase (ALT) 35 U/L (7-40) Alkaline Phosphatase 68 U/L (46-116) Troponin I High Sensitivity 21557 ng/L (</=34) Total Protein 6.3 g/dL (5.7-8.2) Albumin 3.9 g/dL (3.2-4.8) Blood Gas Specimen Type Arterial Blood Gas Sample Site Left radial Blood Gas Patient Temperature 37.0 Arterial Blood Date Drawn [id number] Arterial Blood pH 7.478 (7.350-7.450) Arterial Blood Partial Pressure CO2 34.2 mmHg (32.0-45.0) Arterial Blood Partial Pressure O2 96.2 mmHg (83.0-108.0) Arterial Blood HCO3 24.8 mmol/L (21.0-28.0) Arterial Blood Oxygen Saturation 97.2 % (94.0-98.0) Arterial Blood Base Excess 1.7 mmol/L (-2.0-3.0) Arterial Blood Oxyhemoglobin 95.8 % (94.0-98.0) Arterial Blood Carboxyhemoglobin 1.1 % (0.5-1.5) Arterial Blood Methemoglobin 0.3 % (0.0-1.5) Adriel Test Yes Blood Gas Total Hemoglobin 13.80 g/dL (12.0-16.0) Blood Gas Modality Mask - bipap FiO2 % 40.0 POC Glucose 130 mg/dl (70-106) Test 03/26/24 12:40 03/26/24 10:50 03/25/24 11:12 03/25/24 08:48 Blood Gas EPAP 5 Blood Gas IPAP 12 Blood Gas Liter Flow 2.00 Urine Color Light-yellow (Yellow) Urine Clarity Clear (Clear) Urine pH 5.5 (5.0-9.0) Urine Specific [place] 1.009 (1.001-1.035) Urine Protein Negative (Negative) Urine Ketones Negative (Negative) Urine Blood Negative /uL (Negative) Urine Nitrite Negative (Negative) Urine Bilirubin Negative (Negative) Urine Urobilinogen Normal mg/dL (Negative) Urine Leukocyte Esterase Negative /uL (Negative) Urine RBC 1 /hpf (0 - 4) Urine WBC 1 /hpf (0 - 5) Urine Squamous Epithelial Cells None seen /hpf (<5) Urine Bacteria None seen /hpf (None Seen) Urine Hyaline Casts Few /lpf (0 - 2) Urine Glucose Normal mg/dL (Normal) Blood Gas Pressure Support 5 Blood Gas Critical Value Read Back Yes Blood Gas Notified Whom Jennifer galan md Blood Gas Notified Time [id number] Blood Gas Notified By Cindy stone seat installer Test 03/25/24 08:02 D-Dimer, Quantitative 0.97 mg/L FEU (0.0-0.49) B-Type Natriuretic Peptide 421.38 pg/mL (0-100) Other Laboratory Tests 03/28/24 05:22 03/27/24 06:15 Brief Hx & Hospital Course: SEE DICTATED NOTE Condition at Discharge: Fair Final Diagnosis/Problems List CHF Discharge Disposition: Acute Care Facility Discharge Instruct/Medications Diet: Cardiac 2g Na,low cholest Activity: Light activity Discharge Statement: "Patient was advised to return to the ER or call 911 if any headaches, dizziness, shortness of breath, chest pain, abdominal pain, bleeding, fevers, or worsening of medical condition. Patient was counseled about treatment plan, medications, possible side effects, patientverbalized understanding. All questions were answered to the best of my ability. This discharge took greater then 30 minutes in planning, reviewing documentation, counseling the patient, and discussing with other team members." ASSESSMENT ASSESSMENT Assessment CHF Date of Service: Mar 28, 2024 Billing Provider: ERNESTO BANEGAS MD Common Visit Codes: 45609-YNZ/OBS DISCH DAY >30min ERNESTO BANEGAS MD Mar 28, 2024 11:22
--- NOTE | 2024-03-28 11:44 | DVHDS ---
DATE OF DISCHARGE: 03/28/2024 HISTORY OF PRESENT ILLNESS: The patient is an 88-year-old lady who was admitted with history of increasing shortness of breath and has history of COPD and previous history of aortic valve replacement. HOSPITAL COURSE: The patient was noted to be in congestive heart failure. She was in acute respiratory failure requiring use of BiPAP. The patient had echocardiogram done that showed severe stenosis of the aortic valve. The patient subsequently had elevated troponin levels as well as atrial fibrillation. She was seen in Cardiology consult by Dr. Rose. The patient underwent coronary angiography that showed evidence of nonobstructive coronary artery disease with severe aortic stenosis. The patient is now being transferred to [facility] for further intervention. The patient was also started on amiodarone drip. FINAL DIAGNOSES: Therefore, * Acute respiratory failure. * Acute systolic/diastolic heart failure. * Severe aortic stenosis. * History of previous TAVR. * Hyperlipidemia. * Hypertension. * Non-ST elevation myocardial infarction. * Atrial fibrillation with secondary hypercoagulable state. * Chronic obstructive pulmonary disease. Time spent in discharge planning and review of plan with the patient, nursing and paperwork was 41 minutes. MD TIESHA Best/JOSE TID: [id number] RECEIPT: [id number]
[2024-03-28] MEDS: POTASSIUM CHL 20 Meq TABLET PO ONE (13:51)
--- NOTE | 2024-03-28 15:32 | ECG ---
[facility] Test Date: 2024-03-26 Test Time: 19:50:49 Pat Name: JAM HENDERSON Department: Room: [facility]T A Gender: F Secondary Set Up Man: LUKASZ : 1935 Requested By: JAZLYN LR Order Number: [id number] Reading MD: Garcia Chowdhury Measurements Intervals [place] Rate: 137 P: 0 WV: 0 QRS: -34 QRSD: 139 T: 136 QT: 319 QTc: 482 Interpretive Statements Atrial fibrillation with rapid ventricular response Ventricular premature complex Left bundle branch block Electronically Signed On 03-29-2024 13:28:13 PST by Garcia Chowdhury Please click the below link to view image of tracing.
--- NOTE | 2024-03-28 15:32 | ECG ---
[facility] Test Date: 2024-03-26 Test Time: 19:52:15 Pat Name: JAM HENDERSON Department: Room: [facility] A Gender: F Geotechnical Field Technician: LUKASZ : 1935 Requested By: JAZLYN LR Order Number: [id number] Reading MD: Garcia Chowdhury Measurements Intervals [place] Rate: 150 P: 0 GA: 0 QRS: -34 QRSD: 138 T: 129 QT: 311 QTc: 492 Interpretive Statements Atrial fibrillation with rapid ventricular response Left bundle branch block Electronically Signed On 03-29-2024 13:28:30 PST by Garcia Chowdhury Please click the below link to view image of tracing.
[2024-03-29] VITALS (13 sets, daily range): BP systolic 94–115; BP diastolic 44–94; PULSE 82–131; RESP 18–22; TEMP 97.2–98.9; O2SAT 2–100
--- NOTE | 2024-03-29 07:09 | DVHPN2 ---
Progress Note - Dictate Date Seen: Mar 29, 2024 Medical Necessity Reason Pt with a Central, PICC or Fol: Yes The following are medically ne: Bob Catheter Reason for bob catheter: Strict I&O vital signs Vital Sign Date Time Temp Pulse Resp B/P (MAP) Pulse Ox O2 Delivery O2 Flow Rate FiO2 03/29/24 06:24 82 100 Facial BiPAP Mask 28 03/29/24 05:29 105/60 03/29/24 05:00 98.0 18 98.0 03/28/24 09:14 2.0 Total Intake and Output 03/28/24 03/28/24 03/29/24 15:00 23:00 07:00 Intake Total 800 ml 716.6 ml Output Total 275 ml 250 ml Balance 525 ml 466.6 ml medications Current Medications Medications Dose Ordered Sig/Bijan Route Start Time Stop Time Status Last Admin Dose Admin Acetaminophen 650 mg Q6HP PRN PO 03/25/24 13:30 03/27/24 15:21 650 MG Nitroglycerin 0.4 mg Q5MINP PRN SL 03/25/24 13:30 Morphine Sulfate 2 mg Q30M PRN IV 03/25/24 13:30 03/26/24 08:00 2 MG Pantoprazole Sodium 40 mg DAILY IV 03/27/24 10:00 03/28/24 10:05 40 MG Enoxaparin Sodium 80 mg Q12HR SC 03/26/24 22:00 03/28/24 21:42 80 MG Dorzolamide HCl 1 drop BID@0700,2200 EACHEYE 03/26/24 22:00 03/28/24 05:15 1 DROP Furosemide 40 mg BIDD IV 03/26/24 18:00 03/29/24 05:29 40 MG Aspirin 81 mg DAILY PO 03/27/24 10:00 03/28/24 10:06 81 MG laboratory and microbiology Laboratory Tests 03/28/24 05:22 03/27/24 06:15 Test 03/28/24 05:22 Range/Units Serum Glucose 133 H 74-106 mg/dL Assessment/Plan Patient had episode of atrial fibrillation with RVR last night. She was started on amiodarone drip. Her labs revealed increased troponin. Patient is a 88-year-old female who presented to the hospital with shortness of breath. It seems that the patient was found by EMS with oxygen saturation of 87% at home. Later, the patient was started on CPAP and was given Lasix which improved her clinical status. It is reported that she has had more fluids and chips/mercer prior to presentation. Later on tele floor she got more short of breath and was started on BiPAP. Cardiology is involved for cardiac aspects of care. Patient is known to our practice from outside. 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 It is of note that echocardiogram of November 2023 had revealed some component of aortic stenosis. Overweight female. Using accessory muscles of breathing. Mucosa is pink and wet. No goiter. Long examination reveals scattered rhonchi/rales. Cardiac: Irregular, systolic murmur 3/6 in the apex/base is heard. Abdomen is soft. Bowel sound is positive. Mild hepatomegaly is observed. Extremities reveal 2+ edema. Dorsalis pedis is 2+ bilateral. Past medical history includes valvular heart disease and status post TAVR, DJD, GERD, gallstones, neuropathy and pulmonary hypertension. Echocardiogram of December 05, 2023 (performed in the office) revealed mild concentric left ventricular hypertrophy, ejection fraction 60 65%, moderate left atrial enlargement, right ventricular systolic pressure 41 mm Hg, mild TR, mild mitral annular calcification, trace PI, aortic valve replacement with up to moderate stenosis, trace aortic insufficiency. WBC: 12.3 - 11.9 - 10.4 D-dimer: 0.97 Creatinine: 0.88 - 1.09 - 0.67 - 0.79 - 0.68 Potassium: 4.4 - 4.2 - 3.5 - 3.7 - 3.8 - 3.6 AST/ALT: 30/21 - 180/107 - 141/35 Troponin (high sensitive): 37 - 75 - 131 - 9939 - 77071 - 54391 - 15637 BNP: 421.38 Chest x-ray reported: Lines and Tubes: None Lungs: No focal consolidation. Pleura: No effusion. No pneumothorax. Cardiomediastinal contours: Cardiomegaly Bones: No acute osseous abnormality. IMPRESSION: Cardiomegaly with chf Repeat chest x-ray revealed: IMPRESSION: 1. Mild interstitial pulmonary edema. 2. Small bilateral effusions. Repeat chest x-ray revealed: IMPRESSION: 1. Mild interstitial pulmonary edema. 2. Small bilateral effusions. EKG reveals sinus tachycardia with left bundle branch block Tele reveals sinus tachycardia with left bundle branch block, later: a-fib with RVR, then a-fib with MVR and again: afib with rvr Echocardiogram reported: Technically limited study secondary to poor acoustic windows. Left ventricle: Mild concentric left ventricular hypertrophy was seen. LVEF was 55-60%. Even though no gross wall motion abnormality was observed, its presence can not be ruled out and the basis of this study. Right ventricle is normal size with normal systolic function. Both atria were mildly dilated. Aortic valve: Presence of previous Bioprosthetic valve in Aortic position cannot be ruled out. It was mild insufficiency. Severe stenosis was observed (peak/mean pressure gradient across the aortic valve was 92/65 mm Hg and calculated aortic valve area was 0.6 cm). Mitral valve: Mild mitral regurgitation was seen. Mild mitral annular calcification was observed. There was mild tricuspid regurgitation. Pulmonary valve revealed mild insufficiency. Right ventricular systolic pressure was assessed around 62 mm Hg. There was no pericardial effusion. Consider STEVE for further evaluation of aortic valve. Transesophageal echocardiogram was performed: Revealed significant bioprosthetic aortic valve stenosis, peak/mean pressure gradient across aortic valve was 115/72 mm Hg and calculated aortic valve area was 0.5 centimeter Left heart catheterization was performed: Revealed nonobstructive coronary artery disease Patient is a 88-year-old female presented with shortness of breath. She was found to have acute heart failure. Does have history of valvular heart disease an echocardiogram is in favor of significant aortic stenosis (valve restenosis?). Does have component of pulmonary hypertension which can be considered type 2. He is found to have mildly abnormal D-dimer. She did have episode of atrial fibrillation with RVR. Later, she leaked troponin questioning non-STEMI. She did have STEVE which confirmed significant bioprosthetic aortic valve stenosis. She did have left heart catheterization which did not reveal any significant coronary disease. Abnormal troponin is considered to reflects type 2 physiology at this point. Referral to higher level of care for management of significant bioprosthetic aortic valve stenosis is suggested. Severe bioprosthetic aortic valve stenosis New onset atrial fibrillation Atrial fibrillation with RVR Status post STEVE Status post left heart catheterization Short of breath Acute respiratory failure Acute heart failure, diastolic Valvular heart disease s/p TAVR COPD exacerbation Obesity Abnormal D-dimer Cardiac suggestion for management: Manage in MARIELLA Respiratory support, BiPAP/CPAP IV Lasix (40 mg twice daily) Follow-up electrolytes and kidney function test and correct abnormalities. Keep potassium above 4 and magnesium above 2 IV amiodarone, to be continued Full anticoagulation (started on Lovenox, therapeutic dose), recognizing atrial fibrillation with high CHADS-VASc score Aspirin: 81 mg daily Needs transferred to high level of care for management of bioprosthetic aortic valve stenosis. [facility] in [place] has accepted patient. Please send a copy of imaging/CD of cardiac catheterization/steve/echocardiogram with reports to the higher level of care Happy Birthday to patient A total of 55 minutes was spent reviewing the patient record, examining the patient, making a diagnostic and therapeutic plan, discussing this plan with medical personnel, following up on diagnostic studies and following the patient for clinical stability excluding any and all procedures. At least 50% of this time was spent in direct, [id number] contact. Thank you for allowing me to participate in this patient's care. Further recommendations will depend on patient's clinical course. Please do not hesitate to contact me if you have any questions or concerns. This medical document was created using electronic medical record system with [employer] computerized dictation system. Although this document has been carefully reviewed, there may still be some phonetic and typographical errors. These areas are purely typographical due to the imperfection of the software programs, and do not reflect any compromise in the patient's medical care. Plan discussed with: Patient, Other (nurse) JAZLYN LR MD Mar 29, 2024 07:09
[2024-03-29 08:06] LABS: Basophils # (auto) 0 10 ^3/uL (0-0.2); Basophils % (auto) 0.1 % (0.0-2.0); Eosinophils # (auto) 0.1 10 ^3/uL (0-0.8); Eosinophils % (auto) 1.1 % (0.0-7.0); Hematocrit 34.8 % (36.0-46.0); Hemoglobin 12.2 g/dL (12.2-16.2); Lymphocytes # (auto) 1.6 10 ^3/uL (0.4-5.4); Lymphocytes % (auto) 21.8 % (10.0-50.0); Mean Corpuscular Hgb Conc. 34.9 g/dL (32.0-36.0); Mean Corpuscular Volume 94.5 fL (80.0-100.0); Monocytes # (auto) 0.8 10 ^3/uL (0-1.3); Neutrophils # (auto) 4.9 10 ^3/uL (1.6-8.6); Platelet Count (auto) 211 10^3/uL (140-450); Red Blood Cells 3.68 10^6/uL (4.0-5.20); Red Cell Distribution Width 13.1 % (11.8-14.3); White Blood Cell 7.4 10^3/uL (4.4-10.8)
[2024-03-29 08:21] LABS: Anion Gap 6 (5-15); Carbon Dioxide 30 mmol/L (20-31)
[2024-03-29 08:22] LABS: Calcium 9.6 mg/dL (8.7-10.4)
[2024-03-29 08:27] LABS: BUN/Creatinine Ratio 15.4 (10.0-20.0); Blood Urea Nitrogen 10 mg/dL (9-23); Chloride 91 mmol/L (98-107); Glucose 134 mg/dL (74-106); Potassium 3.3 mmol/L (3.5-5.1); Sodium 127 mmol/L (136-145)
--- NOTE | 2024-03-29 09:18 | DVH ---
CHEST RADIOGRAPH Indication: CHF Technique: Single frontal view of the chest was obtained Comparison: XY CHEST PORTABLE on DOS: 03/27/24, XY CHEST XRAY 1 VIEW on DOS: 03/26/24, XY CHEST PORTABL E on DOS: 03/25/24, XY CHEST PORTABLE on DOS: 03/27/24 FINDINGS: Lines and Tubes: None Lungs: Mild interstitial pulmonary edema. Pleura: Small bilateral effusions. No pneumothorax. Cardiomediastinal contours: Cardiomegaly Bones: Unremarkable IMPRESSION: 1. Mild interstitial pulmonary edema. 2. Small bilateral effusions.
[2024-03-29] MEDS: AMIODARONE 360mg/200mL PREMIX 200 ML IV SCH (09:32)
[2024-03-29] MEDS: POTASSIUM EFFERVESENT TAB 25 MEQ PO ONE (09:49)
--- NOTE | 2024-03-29 10:15 | DVHPN2 ---
Progress Note Date Seen: Mar 29, 2024 Medical Necessity Reason Pt with a Central, PICC or Fol: Yes The following are medically ne: Bob Catheter Reason for bob catheter: Strict I&O Subjective Patient reports: No new complaints Review of Systems: HEENT:Normal, CVS:Normal, RESPIRATORY:Normal, GI:Normal, :Normal, MSK:Normal, NEURO:Normal Objective vital signs Vital Sign Date Time Temp Pulse Resp B/P (MAP) Pulse Ox O2 Delivery O2 Flow Rate FiO2 03/29/24 09:00 97.4 115 20 113/54 (73) 97 97.4 03/29/24 06:24 Facial BiPAP Mask 28 03/28/24 09:14 2.0 Total Intake and Output 03/28/24 03/28/24 03/29/24 15:00 23:00 07:00 Intake Total 800 ml 716.6 ml Output Total 275 ml 250 ml Balance 525 ml 466.6 ml medications Current Medications Medications Dose Ordered Sig/Bijan Route Start Time Stop Time Status Last Admin Dose Admin Acetaminophen 650 mg Q6HP PRN PO 03/25/24 13:30 03/29/24 09:22 650 MG Nitroglycerin 0.4 mg Q5MINP PRN SL 03/25/24 13:30 Morphine Sulfate 2 mg Q30M PRN IV 03/25/24 13:30 03/26/24 08:00 2 MG Pantoprazole Sodium 40 mg DAILY IV 03/27/24 10:00 03/29/24 09:49 40 MG Enoxaparin Sodium 80 mg Q12HR SC 03/26/24 22:00 03/29/24 09:22 80 MG Dorzolamide HCl 1 drop BID@0700,2200 EACHEYE 03/26/24 22:00 03/28/24 05:15 1 DROP Furosemide 40 mg BIDD IV 03/26/24 18:00 03/29/24 05:29 40 MG Aspirin 81 mg DAILY PO 03/27/24 10:00 03/29/24 09:23 81 MG Magnesium Sulfate/ Dextrose 100 ml @ 100 mls/hr Q1HR IV 03/29/24 10:00 03/29/24 11:59 Examination: GENERAL:Normal, HEENT:Normal, NECK:Normal, LUNGS:Normal, LUNGS:Abnormal (on oxygen and bipap, rales), CVS:Normal, ABDOMEN:Normal, MSK:Normal, SKIN:Normal, NEURO:Normal, :Normal laboratory and microbiology Laboratory Tests 03/29/24 07:17 Test 03/29/24 07:17 Range/Units Serum Glucose 134 H 74-106 mg/dL Problem List/Assessment/Plan Problem List/Assessment/Plan #1 acute resp failure: intermittently on bipap, abg #2 acute systolic/diastolic heart failure: lasix iv #3 s/p tavr: echo #4 hyperlipidemia #5 htn #6 nstemi: c angio #7 severe #8 a fib: on amiodarone #9 hyponatremia/hypokalemia: replace await transfer to [facility] advance care planning- full code- time spent 21 mins Plan discussed with: Patient My Orders My Orders Orders - ERNESTO BANEGAS MD Procedure Category Date Status Time Discharge DISCHARGE 03/28/24 Transmitted 11:19 * Pmo Lead CONS 03/28/24 Transmitted Consult Chest Portable XY 03/29/24 Resulted 06:00 Potassium Effervesent PHA 03/29/24 Verified Tab (Klor-Con/Ef) 22:00 Cardiac DIET 03/29/24 Verified Diet-2gna,Lofat,Lochol Lunch Basic Metabolic Panel LAB 03/30/24 Verified 06:00 Magnesium LAB 03/30/24 Verified 05:00 Date of Service: Mar 29, 2024 Billing Provider: ERNESTO BANEGAS MD Common Visit Codes: [id number] INP/OBS CARE(HIGH) ERNESTO BANEGAS MD Mar 29, 2024 10:15
[2024-03-29] MEDS: MAGNESIUM SULFATE 1GM/100ML 100 ML IV SCH (12:20)
[2024-03-29] MEDS: MAGNESIUM SULFATE 1GM/100ML 100 ML IV ONE (15:26)
[2024-03-30] VITALS (14 sets, daily range): BP systolic 99–117; BP diastolic 57–76; PULSE 58–133; RESP 19–22; TEMP 97.5–98; O2SAT 91–100
[2024-03-30] MEDS: POTASSIUM EFFERVESENT TAB 25 MEQ PO SCH (01:24)
--- NOTE | 2024-03-30 07:33 | DVHPN2 ---
Progress Note - Dictate Date Seen: Mar 30, 2024 Medical Necessity Reason Pt with a Central, PICC or Fol: Yes The following are medically ne: Bob Catheter Reason for bob catheter: Strict I&O vital signs Vital Sign Date Time Temp Pulse Resp B/P (MAP) Pulse Ox O2 Delivery O2 Flow Rate FiO2 03/30/24 06:48 148/83 03/30/24 05:00 98.0 128 22 100 98.0 03/30/24 03:02 Facial BiPAP Mask 28 03/29/24 20:00 2 Total Intake and Output 03/29/24 03/29/24 03/30/24 15:00 23:00 07:00 Intake Total 100 ml 560 ml 690 ml Output Total 1100 ml 800 ml Balance 100 ml -540 ml -110 ml medications Current Medications Medications Dose Ordered Sig/Bijan Route Start Time Stop Time Status Last Admin Dose Admin Acetaminophen 650 mg Q6HP PRN PO 03/25/24 13:30 03/29/24 18:20 650 MG Nitroglycerin 0.4 mg Q5MINP PRN SL 03/25/24 13:30 Morphine Sulfate 2 mg Q30M PRN IV 03/25/24 13:30 03/26/24 08:00 2 MG Pantoprazole Sodium 40 mg DAILY IV 03/27/24 10:00 03/29/24 09:49 40 MG Enoxaparin Sodium 80 mg Q12HR SC 03/26/24 22:00 03/29/24 21:14 80 MG Dorzolamide HCl 1 drop BID@0700,2200 EACHEYE 03/26/24 22:00 03/30/24 07:18 1 DROP Furosemide 40 mg BIDD IV 03/26/24 18:00 03/30/24 06:48 40 MG Aspirin 81 mg DAILY PO 03/27/24 10:00 03/29/24 09:23 81 MG Potassium Bicarbonate 25 meq BID PO 03/29/24 22:00 03/30/24 01:24 25 MEQ laboratory and microbiology Laboratory Tests 03/29/24 07:17 Test 03/30/24 06:25 Range/Units Serum Glucose Pending Assessment/Plan Patient had episode of atrial fibrillation with RVR last night. She was started on amiodarone drip. Her labs revealed increased troponin. Patient is a 88-year-old female who presented to the hospital with shortness of breath. It seems that the patient was found by EMS with oxygen saturation of 87% at home. Later, the patient was started on CPAP and was given Lasix which improved her clinical status. It is reported that she has had more fluids and chips/mercer prior to presentation. Later on tele floor she got more short of breath and was started on BiPAP. Cardiology is involved for cardiac aspects of care. Patient is known to our practice from outside. 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 It is of note that echocardiogram of November 2023 had revealed some component of aortic stenosis. Overweight female. Using accessory muscles of breathing. Mucosa is pink and wet. No goiter. Long examination reveals scattered rhonchi/rales. Cardiac: Irregular, systolic murmur 3/6 in the apex/base is heard. Abdomen is soft. Bowel sound is positive. Mild hepatomegaly is observed. Extremities reveal 2+ edema. Dorsalis pedis is 2+ bilateral. Past medical history includes valvular heart disease and status post TAVR, DJD, GERD, gallstones, neuropathy and pulmonary hypertension. Echocardiogram of December 05, 2023 (performed in the office) revealed mild concentric left ventricular hypertrophy, ejection fraction 60 65%, moderate left atrial enlargement, right ventricular systolic pressure 41 mm Hg, mild TR, mild mitral annular calcification, trace PI, aortic valve replacement with up to moderate stenosis, trace aortic insufficiency. WBC: 12.3 - 11.9 - 10.4 - 7.4 D-dimer: 0.97 Creatinine: 0.88 - 1.09 - 0.67 - 0.79 - 0.68 - 0.68 Potassium: 4.4 - 4.2 - 3.5 - 3.7 - 3.8 - 3.6 - 3.3 AST/ALT: - 180/107 - 141/35 Troponin (high sensitive): 37 - 75 - 131 - 9900 - 56630 - 69911 - 25949 BNP: 421.38 Chest x-ray reported: Lines and Tubes: None Lungs: No focal consolidation. Pleura: No effusion. No pneumothorax. Cardiomediastinal contours: Cardiomegaly Bones: No acute osseous abnormality. IMPRESSION: Cardiomegaly with chf Repeat chest x-ray revealed: IMPRESSION: 1. Mild interstitial pulmonary edema. 2. Small bilateral effusions. Repeat chest x-ray revealed: IMPRESSION: 1. Mild interstitial pulmonary edema. 2. Small bilateral effusions. Repeat chest xry revealed: IMPRESSION: 1. Mild interstitial pulmonary edema. 2. Small bilateral effusions. EKG reveals sinus tachycardia with left bundle branch block Tele reveals sinus tachycardia with left bundle branch block, later: a-fib with RVR, then a-fib with MVR and again: afib with rvr Echocardiogram reported: Technically limited study secondary to poor acoustic windows. Left ventricle: Mild concentric left ventricular hypertrophy was seen. LVEF was 55-60%. Even though no gross wall motion abnormality was observed, its presence can not be ruled out and the basis of this study. Right ventricle is normal size with normal systolic function. Both atria were mildly dilated. Aortic valve: Presence of previous Bioprosthetic valve in Aortic position cannot be ruled out. It was mild insufficiency. Severe stenosis was observed (peak/mean pressure gradient across the aortic valve was 92/65 mm Hg and calculated aortic valve area was 0.6 cm). Mitral valve: Mild mitral regurgitation was seen. Mild mitral annular calcification was observed. There was mild tricuspid regurgitation. Pulmonary valve revealed mild insufficiency. Right ventricular systolic pressure was assessed around 62 mm Hg. There was no pericardial effusion. Consider STEVE for further evaluation of aortic valve. Transesophageal echocardiogram was performed: Revealed significant bioprosthetic aortic valve stenosis, peak/mean pressure gradient across aortic valve was 115/72 mm Hg and calculated aortic valve area was 0.5 centimeter Left heart catheterization was performed: Revealed nonobstructive coronary artery disease Patient is a 88-year-old female presented with shortness of breath. She was found to have acute heart failure. Does have history of valvular heart disease an echocardiogram is in favor of significant aortic stenosis (valve restenosis?). Does have component of pulmonary hypertension which can be considered type 2. He is found to have mildly abnormal D-dimer. She did have episode of atrial fibrillation with RVR. Later, she leaked troponin questioning non-STEMI. She did have STEVE which confirmed significant bioprosthetic aortic valve stenosis. She did have left heart catheterization which did not reveal any significant coronary disease. Abnormal troponin is considered to reflects type 2 physiology at this point. Referral to higher level of care for management of significant bioprosthetic aortic valve stenosis is suggested. Severe bioprosthetic aortic valve stenosis New onset atrial fibrillation Atrial fibrillation with RVR Status post STEVE Status post left heart catheterization Short of breath Acute respiratory failure Acute heart failure, diastolic Valvular heart disease s/p TAVR COPD exacerbation Obesity Abnormal D-dimer Cardiac suggestion for management: Manage in MARIELLA Respiratory support, BiPAP/CPAP IV Lasix (40 mg twice daily) Follow-up electrolytes and kidney function test and correct abnormalities. Keep potassium above 4 and magnesium above 2 IV amiodarone, to be continued Full anticoagulation (started on Lovenox, therapeutic dose), recognizing atrial fibrillation with high CHADS-VASc score Aspirin: 81 mg daily Needs transferred to high level of care for management of bioprosthetic aortic valve stenosis. [facility] has accepted patient. Please send a copy of imaging/CD of cardiac catheterization/steve/echocardiogram with reports to the higher level of care Happy Birthday to patient A total of 55 minutes was spent reviewing the patient record, examining the patient, making a diagnostic and therapeutic plan, discussing this plan with medical personnel, following up on diagnostic studies and following the patient for clinical stability excluding any and all procedures. At least 50% of this time was spent in direct, [id number] contact. Thank you for allowing me to participate in this patient's care. Further recommendations will depend on patient's clinical course. Please do not hesitate to contact me if you have any questions or concerns. This medical document was created using electronic medical record system with [employer] computerized dictation system. Although this document has been carefully reviewed, there may still be some phonetic and typographical errors. These areas are purely typographical due to the imperfection of the software programs, and do not reflect any compromise in the patient's medical care. Dietary Evaluation Review Comments: Continue current plan of care Expected Outcomes/Goals: F/U in 3-5 days Plan discussed with: Patient, Other (nurse) JAZLYN LR MD Mar 30, 2024 07:33
[2024-03-30 07:52] LABS: Anion Gap 5 (5-15); Potassium 3.9 mmol/L (3.5-5.1)
[2024-03-30 07:58] LABS: BUN/Creatinine Ratio 16.9 (10.0-20.0); Blood Urea Nitrogen 11 mg/dL (9-23); Magnesium 2.1 mg/dL (1.6-2.6)
[2024-03-30 07:59] LABS: Carbon Dioxide 31 mmol/L (20-31); Chloride 88 mmol/L (98-107); Glucose 127 mg/dL (74-106); Sodium 124 mmol/L (136-145)
--- NOTE | 2024-03-30 12:58 | DVHPN2 ---
Reviewed: Care Plan, H&P, Labs, Medications, Previous Orders, Radiology Changes from previous H/P or p: No Changes Respiratory: Shortness of breath Objective Vitals Vital Signs Date Time Temp Pulse Resp B/P (MAP) Pulse Ox O2 Delivery O2 Flow Rate FiO2 03/30/24 09:41 97.5 112 19 116/76 (89) 98 97.5 03/30/24 08:00 Nasal Cannula* 2 28 Intake/Output Intake and Output 03/30/24 07:00 Intake Total 1350 ml Output Total 1900 ml Balance -550 ml Intake Oral 1150 ml IV Total 200 ml Output Urine Total 1900 ml Medications Current Medications Medications Dose Ordered Sig/Bijan Route Start Time Stop Time Status Last Admin Dose Admin Acetaminophen 650 mg Q6HP PRN PO 03/25/24 13:30 03/29/24 18:20 650 MG Nitroglycerin 0.4 mg Q5MINP PRN SL 03/25/24 13:30 Morphine Sulfate 2 mg Q30M PRN IV 03/25/24 13:30 03/26/24 08:00 2 MG Pantoprazole Sodium 40 mg DAILY IV 03/27/24 10:00 03/30/24 09:31 40 MG Enoxaparin Sodium 80 mg Q12HR SC 03/26/24 22:00 03/30/24 09:31 80 MG Dorzolamide HCl 1 drop BID@0700,2200 EACHEYE 03/26/24 22:00 03/30/24 07:18 1 DROP Furosemide 40 mg BIDD IV 03/26/24 18:00 03/30/24 06:48 40 MG Aspirin 81 mg DAILY PO 03/27/24 10:00 03/30/24 09:30 81 MG Potassium Bicarbonate 25 meq BID PO 03/29/24 22:00 03/30/24 09:30 25 MEQ Laboratory Results Laboratory Tests 03/29/24 07:17 03/30/24 06:25 Chemistry Test 03/30/24 06:25 Calcium Level 9.0 mg/dL (8.7-10.4) Magnesium Level 2.1 mg/dL (1.6-2.6) Urinalysis Test 03/25/24 11:12 Urine Color Light-yellow (Yellow) Urine Clarity Clear (Clear) Urine pH 5.5 (5.0-9.0) Urine Specific [place] 1.009 (1.001-1.035) Urine Protein Negative (Negative) Urine Ketones Negative (Negative) Urine Blood Negative /uL (Negative) Urine Nitrite Negative (Negative) Urine Bilirubin Negative (Negative) Urine Urobilinogen Normal mg/dL (Negative) Urine Leukocyte Esterase Negative /uL (Negative) Urine RBC 1 /hpf (0 - 4) Urine WBC 1 /hpf (0 - 5) Urine Squamous Epithelial Cells None seen /hpf (<5) Urine Bacteria None seen /hpf (None Seen) Urine Hyaline Casts Few /lpf (0 - 2) Urine Glucose Normal mg/dL (Normal) Labs and/or images reviewed: Labs reviewed by me, Image(s) reviewed by me Assessment/Plan Assessment/Plan Covering For Dr. Irby #1 acute resp failure: intermittently on bipap, abg #2 acute systolic/diastolic heart failure: lasix iv cardiology consult by Dr. Milton carmen #3 s/p tavr: echo #4 hyperlipidemia #5 htn #6 nstemi: c angio #7 Severe aortic stenosis requiring valve replacement #8 a fib: on amiodarone #9 hyponatremia/hypokalemia: replace Awaiting transfer to [facility] Discussed with the patient and her daughter at the bedside Plan discussed with: Patient Date of Service: Mar 30, 2024 Billing Provider: JERSEY HERNANDEZ MD Common Visit Codes: [id number] INP/OBS CARE(HIGH) JERSEY HERNANDEZ MD Mar 30, 2024 12:58
[2024-03-31] VITALS (22 sets, daily range): BP systolic 96–120; BP diastolic 57–76; PULSE 67–120; RESP 18–20; TEMP 97.6–98.6; O2SAT 91–100
--- NOTE | 2024-03-31 11:41 | DVHPN2 ---
Reviewed: Care Plan, H&P, Labs, Medications, Previous Orders, Radiology Changes from previous H/P or p: No Changes Respiratory: Shortness of breath Objective Vitals Vital Signs Date Time Temp Pulse Resp B/P (MAP) Pulse Ox O2 Delivery O2 Flow Rate FiO2 03/31/24 10:45 98 91 Facial BiPAP Mask 28 03/31/24 09:00 98.6 18 96/62 (73) 98.6 03/31/24 08:00 2 Intake/Output Intake and Output 03/31/24 07:00 Intake Total 1000 ml Output Total 1300 ml Balance -300 ml Intake Oral 800 ml IV Total 200 ml Output Urine Total 1300 ml Medications Current Medications Medications Dose Ordered Sig/Bijan Route Start Time Stop Time Status Last Admin Dose Admin Acetaminophen 650 mg Q6HP PRN PO 03/25/24 13:30 03/31/24 02:25 650 MG Nitroglycerin 0.4 mg Q5MINP PRN SL 03/25/24 13:30 Morphine Sulfate 2 mg Q30M PRN IV 03/25/24 13:30 03/26/24 08:00 2 MG Pantoprazole Sodium 40 mg DAILY IV 03/27/24 10:00 03/31/24 09:21 40 MG Enoxaparin Sodium 80 mg Q12HR SC 03/26/24 22:00 03/31/24 09:22 80 MG Dorzolamide HCl 1 drop BID@0700,2200 EACHEYE 03/26/24 22:00 03/31/24 06:32 1 DROP Furosemide 40 mg BIDD IV 03/26/24 18:00 03/31/24 06:32 40 MG Aspirin 81 mg DAILY PO 03/27/24 10:00 03/31/24 09:16 81 MG Potassium Bicarbonate 25 meq BID PO 03/29/24 22:00 03/31/24 09:17 25 MEQ Laboratory Results Laboratory Tests 03/29/24 07:17 03/30/24 06:25 Urinalysis Test 03/25/24 11:12 Urine Color Light-yellow (Yellow) Urine Clarity Clear (Clear) Urine pH 5.5 (5.0-9.0) Urine Specific [place] 1.009 (1.001-1.035) Urine Protein Negative (Negative) Urine Ketones Negative (Negative) Urine Blood Negative /uL (Negative) Urine Nitrite Negative (Negative) Urine Bilirubin Negative (Negative) Urine Urobilinogen Normal mg/dL (Negative) Urine Leukocyte Esterase Negative /uL (Negative) Urine RBC 1 /hpf (0 - 4) Urine WBC 1 /hpf (0 - 5) Urine Squamous Epithelial Cells None seen /hpf (<5) Urine Bacteria None seen /hpf (None Seen) Urine Hyaline Casts Few /lpf (0 - 2) Urine Glucose Normal mg/dL (Normal) Labs and/or images reviewed: Labs reviewed by me, Image(s) reviewed by me Assessment/Plan Assessment/Plan Covering For Dr. Irby #1 acute resp failure: intermittently on bipap, abg #2 acute systolic/diastolic heart failure: lasix iv cardiology consult by Dr. Rose appreciated #3 s/p tavr: echo #4 hyperlipidemia #5 htn #6 nstemi: c angio #7 Severe aortic stenosis requiring valve replacement #8 a fib: on amiodarone #9 hyponatremia/hypokalemia: replace Awaiting transfer to [facility] Discussed with the patient and her daughter at the bedside Patient is Anxious and worried why she is not being transferred, I advised the social work faculty member working on transfer Plan discussed with: Patient Date of Service: Mar 31, 2024 Billing Provider: JERSEY HERNANDEZ MD Common Visit Codes: [id number] INP/OBS CARE(HIGH) JERSEY HERNANDEZ MD Mar 31, 2024 11:41
--- NOTE | 2024-03-31 13:12 | DVHPN2 ---
Progress Note - Dictate Date Seen: Mar 31, 2024 Medical Necessity Reason Pt with a Central, PICC or Fol: Yes The following are medically ne: Bob Catheter Reason for bob catheter: Strict I&O vital signs Vital Sign Date Time Temp Pulse Resp B/P (MAP) Pulse Ox O2 Delivery O2 Flow Rate FiO2 03/31/24 10:45 98 91 Facial BiPAP Mask 28 03/31/24 09:10 18 96/62 03/31/24 09:00 98.6 98.6 03/31/24 08:00 2 Total Intake and Output 03/30/24 03/30/24 03/31/24 15:00 23:00 07:00 Intake Total 500 ml 500 ml Output Total 500 ml 800 ml Balance 0 ml -300 ml medications Current Medications Medications Dose Ordered Sig/Bijan Route Start Time Stop Time Status Last Admin Dose Admin Acetaminophen 650 mg Q6HP PRN PO 03/25/24 13:30 03/31/24 02:25 650 MG Nitroglycerin 0.4 mg Q5MINP PRN SL 03/25/24 13:30 Morphine Sulfate 2 mg Q30M PRN IV 03/25/24 13:30 03/26/24 08:00 2 MG Pantoprazole Sodium 40 mg DAILY IV 03/27/24 10:00 03/31/24 09:21 40 MG Enoxaparin Sodium 80 mg Q12HR SC 03/26/24 22:00 03/31/24 09:22 80 MG Dorzolamide HCl 1 drop BID@0700,2200 EACHEYE 03/26/24 22:00 03/31/24 06:32 1 DROP Furosemide 40 mg BIDD IV 03/26/24 18:00 03/31/24 06:32 40 MG Aspirin 81 mg DAILY PO 03/27/24 10:00 03/31/24 09:16 81 MG Potassium Bicarbonate 25 meq BID PO 03/29/24 22:00 03/31/24 09:17 25 MEQ laboratory and microbiology Laboratory Tests 03/30/24 06:25 03/29/24 07:17 Test 03/30/24 06:25 Range/Units Serum Glucose 127 H 74-106 mg/dL Assessment/Plan Patient had episode of atrial fibrillation with RVR last night. She was started on amiodarone drip. Her labs revealed increased troponin. Patient is a 88-year-old female who presented to the hospital with shortness of breath. It seems that the patient was found by EMS with oxygen saturation of 87% at home. Later, the patient was started on CPAP and was given Lasix which improved her clinical status. It is reported that she has had more fluids and chips/mercer prior to presentation. Later on tele floor she got more short of breath and was started on BiPAP. Cardiology is involved for cardiac aspects of care. Patient is known to our practice from outside. 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 It is of note that echocardiogram of November 2023 had revealed some component of aortic stenosis. Overweight female. Using accessory muscles of breathing. Mucosa is pink and wet. No goiter. Long examination reveals scattered rhonchi/rales. Cardiac: Irregular, systolic murmur 3/6 in the apex/base is heard. Abdomen is soft. Bowel sound is positive. Mild hepatomegaly is observed. Extremities reveal 2+ edema. Dorsalis pedis is 2+ bilateral. Past medical history includes valvular heart disease and status post TAVR, DJD, GERD, gallstones, neuropathy and pulmonary hypertension. Echocardiogram of December 05, 2023 (performed in the office) revealed mild concentric left ventricular hypertrophy, ejection fraction 60 65%, moderate left atrial enlargement, right ventricular systolic pressure 41 mm Hg, mild TR, mild mitral annular calcification, trace PI, aortic valve replacement with up to moderate stenosis, trace aortic insufficiency. WBC: 12.3 - 11.9 - 10.4 - 7.4 D-dimer: 0.97 Creatinine: 0.88 - 1.09 - 0.67 - 0.79 - 0.68 - 0.65 - 0.65 Potassium: 4.4 - 4.2 - 3.5 - 3.7 - 3.8 - 3.6 - 3.3 - 3.9 AST/ALT: - 180/107 - 141/35 Troponin (high sensitive): 37 - 75 - 959 - 9735 - 75903 - 12810 - 52335 BNP: 421.38 Chest x-ray reported: Lines and Tubes: None Lungs: No focal consolidation. Pleura: No effusion. No pneumothorax. Cardiomediastinal contours: Cardiomegaly Bones: No acute osseous abnormality. IMPRESSION: Cardiomegaly with chf Repeat chest x-ray revealed: IMPRESSION: 1. Mild interstitial pulmonary edema. 2. Small bilateral effusions. Repeat chest x-ray revealed: IMPRESSION: 1. Mild interstitial pulmonary edema. 2. Small bilateral effusions. Repeat chest xry revealed: IMPRESSION: 1. Mild interstitial pulmonary edema. 2. Small bilateral effusions. EKG reveals sinus tachycardia with left bundle branch block Tele reveals sinus tachycardia with left bundle branch block, later: a-fib with RVR, then a-fib with MVR and again: afib with rvr Echocardiogram reported: Technically limited study secondary to poor acoustic windows. Left ventricle: Mild concentric left ventricular hypertrophy was seen. LVEF was 55-60%. Even though no gross wall motion abnormality was observed, its presence can not be ruled out and the basis of this study. Right ventricle is normal size with normal systolic function. Both atria were mildly dilated. Aortic valve: Presence of previous Bioprosthetic valve in Aortic position cannot be ruled out. It was mild insufficiency. Severe stenosis was observed (peak/mean pressure gradient across the aortic valve was 92/65 mm Hg and calculated aortic valve area was 0.6 cm). Mitral valve: Mild mitral regurgitation was seen. Mild mitral annular calcification was observed. There was mild tricuspid regurgitation. Pulmonary valve revealed mild insufficiency. Right ventricular systolic pressure was assessed around 62 mm Hg. There was no pericardial effusion. Consider STEVE for further evaluation of aortic valve. Transesophageal echocardiogram was performed: Revealed significant bioprosthetic aortic valve stenosis, peak/mean pressure gradient across aortic valve was 115/72 mm Hg and calculated aortic valve area was 0.5 centimeter Left heart catheterization was performed: Revealed nonobstructive coronary artery disease Patient is a 88-year-old female presented with shortness of breath. She was found to have acute heart failure. Does have history of valvular heart disease an echocardiogram is in favor of significant aortic stenosis (valve restenosis?). Does have component of pulmonary hypertension which can be considered type 2. He is found to have mildly abnormal D-dimer. She did have episode of atrial fibrillation with RVR. Later, she leaked troponin questioning non-STEMI. She did have STEVE which confirmed significant bioprosthetic aortic valve stenosis. She did have left heart catheterization which did not reveal any significant coronary disease. Abnormal troponin is considered to reflects type 2 physiology at this point. Referral to higher level of care for management of significant bioprosthetic aortic valve stenosis is suggested. Severe bioprosthetic aortic valve stenosis New onset atrial fibrillation Atrial fibrillation with RVR Status post STEVE Status post left heart catheterization Short of breath Acute respiratory failure Acute heart failure, diastolic Valvular heart disease s/p TAVR COPD exacerbation Obesity Abnormal D-dimer Cardiac suggestion for management: Manage in MARIELLA Respiratory support, BiPAP/CPAP IV Lasix (40 mg twice daily) Follow-up electrolytes and kidney function test and correct abnormalities. Keep potassium above 4 and magnesium above 2 IV amiodarone, to be continued Full anticoagulation (started on Lovenox, therapeutic dose), recognizing atrial fibrillation with high CHADS-VASc score Aspirin: 81 mg daily Needs transferred to high level of care for management of bioprosthetic aortic valve stenosis. [facility] in [place] has accepted patient. Please send a copy of imaging/CD of cardiac catheterization/steve/echocardiogram with reports to the higher level of care A total of 55 minutes was spent reviewing the patient record, examining the patient, making a diagnostic and therapeutic plan, discussing this plan with medical personnel, following up on diagnostic studies and following the patient for clinical stability excluding any and all procedures. At least 50% of this time was spent in direct, [id number] contact. Thank you for allowing me to participate in this patient's care. Further recommendations will depend on patient's clinical course. Please do not hesitate to contact me if you have any questions or concerns. This medical document was created using electronic medical record system with [employer] computerized dictation system. Although this document has been carefully reviewed, there may still be some phonetic and typographical errors. These areas are purely typographical due to the imperfection of the software programs, and do not reflect any compromise in the patient's medical care. Dietary Evaluation Review Comments: Continue current plan of care Expected Outcomes/Goals: F/U in 3-5 days Plan discussed with: Patient, Other (nurse) JAZLYN LR MD Mar 31, 2024 13:12
[2024-04-01] VITALS (30 sets, daily range): BP systolic 96–121; BP diastolic 40–71; PULSE 73–106; RESP 16–29; TEMP 97.8–99; O2SAT 94–100
--- NOTE | 2024-04-01 07:17 | DVHPN2 ---
Progress Note - Dictate Date Seen: Apr 01, 2024 Medical Necessity Reason Pt with a Central, PICC or Fol: Yes The following are medically ne: Bob Catheter Reason for bob catheter: Strict I&O vital signs Vital Sign Date Time Temp Pulse Resp B/P (MAP) Pulse Ox O2 Delivery O2 Flow Rate FiO2 04/01/24 05:55 106/58 04/01/24 05:00 98.5 97 18 97 98.5 04/01/24 02:31 Facial BiPAP Mask 28 03/31/24 20:00 3 Total Intake and Output 03/31/24 03/31/24 04/01/24 15:00 23:00 07:00 Intake Total 559.92 ml 300 ml Output Total 900 ml 550 ml Balance -340.08 ml -250 ml medications Current Medications Medications Dose Ordered Sig/Bijan Route Start Time Stop Time Status Last Admin Dose Admin Acetaminophen 650 mg Q6HP PRN PO 03/25/24 13:30 04/01/24 07:00 650 MG Nitroglycerin 0.4 mg Q5MINP PRN SL 03/25/24 13:30 Morphine Sulfate 2 mg Q30M PRN IV 03/25/24 13:30 03/26/24 08:00 2 MG Pantoprazole Sodium 40 mg DAILY IV 03/27/24 10:00 03/31/24 09:21 40 MG Enoxaparin Sodium 80 mg Q12HR SC 03/26/24 22:00 03/31/24 22:22 80 MG Dorzolamide HCl 1 drop BID@0700,2200 EACHEYE 03/26/24 22:00 03/31/24 06:32 1 DROP Furosemide 40 mg BIDD IV 03/26/24 18:00 04/01/24 05:55 40 MG Aspirin 81 mg DAILY PO 03/27/24 10:00 03/31/24 09:16 81 MG Potassium Bicarbonate 25 meq BID PO 03/29/24 22:00 03/31/24 09:17 25 MEQ laboratory and microbiology Laboratory Tests 03/30/24 06:25 03/29/24 07:17 Test 03/30/24 06:25 Range/Units Serum Glucose 127 H 74-106 mg/dL Assessment/Plan Patient had episode of atrial fibrillation with RVR last night. She was started on amiodarone drip. Her labs revealed increased troponin. Patient is a 88-year-old female who presented to the hospital with shortness of breath. It seems that the patient was found by EMS with oxygen saturation of 87% at home. Later, the patient was started on CPAP and was given Lasix which improved her clinical status. It is reported that she has had more fluids and chips/mercer prior to presentation. Later on tele floor she got more short of breath and was started on BiPAP. Cardiology is involved for cardiac aspects of care. Patient is known to our practice from outside. 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 It is of note that echocardiogram of November 2023 had revealed some component of aortic stenosis. Overweight female. Using accessory muscles of breathing. Mucosa is pink and wet. No goiter. Long examination reveals scattered rhonchi/rales. Cardiac: Irregular, systolic murmur 3/6 in the apex/base is heard. Abdomen is soft. Bowel sound is positive. Mild hepatomegaly is observed. Extremities reveal 2+ edema. Dorsalis pedis is 2+ bilateral. Past medical history includes valvular heart disease and status post TAVR, DJD, GERD, gallstones, neuropathy and pulmonary hypertension. Echocardiogram of December 05, 2023 (performed in the office) revealed mild concentric left ventricular hypertrophy, ejection fraction 60 65%, moderate left atrial enlargement, right ventricular systolic pressure 41 mm Hg, mild TR, mild mitral annular calcification, trace PI, aortic valve replacement with up to moderate stenosis, trace aortic insufficiency. WBC: 12.3 - 11.9 - 10.4 - 7.4 D-dimer: 0.97 Creatinine: 0.88 - 1.09 - 0.67 - 0.79 - 0.68 - 0.65 - 0.65 Potassium: 4.4 - 4.2 - 3.5 - 3.7 - 3.8 - 3.6 - 3.3 - 3.9 AST/ALT: 30/21 - 180/107 - 141/35 Troponin (high sensitive): 37 - 75 - 440 - 0491 - 78959 - 01943 - 32705 BNP: 421.38 Chest x-ray reported: Lines and Tubes: None Lungs: No focal consolidation. Pleura: No effusion. No pneumothorax. Cardiomediastinal contours: Cardiomegaly Bones: No acute osseous abnormality. IMPRESSION: Cardiomegaly with chf Repeat chest x-ray revealed: IMPRESSION: 1. Mild interstitial pulmonary edema. 2. Small bilateral effusions. Repeat chest x-ray revealed: IMPRESSION: 1. Mild interstitial pulmonary edema. 2. Small bilateral effusions. Repeat chest xry revealed: IMPRESSION: 1. Mild interstitial pulmonary edema. 2. Small bilateral effusions. EKG reveals sinus tachycardia with left bundle branch block Tele reveals sinus tachycardia with left bundle branch block, later: a-fib with RVR, then a-fib with MVR and again: afib with rvr Echocardiogram reported: Technically limited study secondary to poor acoustic windows. Left ventricle: Mild concentric left ventricular hypertrophy was seen. LVEF was 55-60%. Even though no gross wall motion abnormality was observed, its presence can not be ruled out and the basis of this study. Right ventricle is normal size with normal systolic function. Both atria were mildly dilated. Aortic valve: Presence of previous Bioprosthetic valve in Aortic position cannot be ruled out. It was mild insufficiency. Severe stenosis was observed (peak/mean pressure gradient across the aortic valve was 92/65 mm Hg and calculated aortic valve area was 0.6 cm). Mitral valve: Mild mitral regurgitation was seen. Mild mitral annular calcification was observed. There was mild tricuspid regurgitation. Pulmonary valve revealed mild insufficiency. Right ventricular systolic pressure was assessed around 62 mm Hg. There was no pericardial effusion. Consider STEVE for further evaluation of aortic valve. Transesophageal echocardiogram was performed: Revealed significant bioprosthetic aortic valve stenosis, peak/mean pressure gradient across aortic valve was 115/72 mm Hg and calculated aortic valve area was 0.5 centimeter Left heart catheterization was performed: Revealed nonobstructive coronary artery disease Patient is a 88-year-old female presented with shortness of breath. She was found to have acute heart failure. Does have history of valvular heart disease an echocardiogram is in favor of significant aortic stenosis (valve restenosis?). Does have component of pulmonary hypertension which can be considered type 2. He is found to have mildly abnormal D-dimer. She did have episode of atrial fibrillation with RVR. Later, she leaked troponin questioning non-STEMI. She did have STEVE which confirmed significant bioprosthetic aortic valve stenosis. She did have left heart catheterization which did not reveal any significant coronary disease. Abnormal troponin is considered to reflects type 2 physiology at this point. Referral to higher level of care for management of significant bioprosthetic aortic valve stenosis is suggested. Severe bioprosthetic aortic valve stenosis New onset atrial fibrillation Atrial fibrillation with RVR Status post STEVE Status post left heart catheterization Short of breath Acute respiratory failure Acute heart failure, diastolic Valvular heart disease s/p TAVR COPD exacerbation Obesity Abnormal D-dimer Cardiac suggestion for management: Manage in MARIELLA Respiratory support, BiPAP/CPAP IV Lasix (40 mg twice daily) Follow-up electrolytes and kidney function test and correct abnormalities. Keep potassium above 4 and magnesium above 2 IV amiodarone, to be continued Full anticoagulation (started on Lovenox, therapeutic dose), recognizing atrial fibrillation with high CHADS-VASc score Aspirin: 81 mg daily Needs transferred to high level of care for management of bioprosthetic aortic valve stenosis. [facility] has accepted patient. Please send a copy of imaging/CD of cardiac catheterization/steve/echocardiogram with reports to the higher level of care A total of 55 minutes was spent reviewing the patient record, examining the patient, making a diagnostic and therapeutic plan, discussing this plan with medical personnel, following up on diagnostic studies and following the patient for clinical stability excluding any and all procedures. At least 50% of this time was spent in direct, [id number] contact. Thank you for allowing me to participate in this patient's care. Further recommendations will depend on patient's clinical course. Please do not hesitate to contact me if you have any questions or concerns. This medical document was created using electronic medical record system with [employer] computerized dictation system. Although this document has been carefully reviewed, there may still be some phonetic and typographical errors. These areas are purely typographical due to the imperfection of the software programs, and do not reflect any compromise in the patient's medical care. Dietary Evaluation Review Comments: Continue current plan of care Expected Outcomes/Goals: F/U in 3-5 days Plan discussed with: Other (nurse) JAZLYN LR MD Apr 01, 2024 07:17
[2024-04-01] MEDS: DORZOLAMIDE HCL 2% OPTH(EYE) SOL 10ML EACHEYE ONE (10:57)
--- NOTE | 2024-04-01 11:14 | DVHPN2 ---
Reviewed: Care Plan, H&P, Labs, Medications, Previous Orders, Radiology Changes from previous H/P or p: No Changes Respiratory: Shortness of breath Objective Vitals Vital Signs Date Time Temp Pulse Resp B/P (MAP) Pulse Ox O2 Delivery O2 Flow Rate FiO2 04/01/24 09:00 97.8 91 17 107/40 (62) 98 97.8 04/01/24 08:00 Nasal Cannula* 6 44 Intake/Output Intake and Output 04/01/24 07:00 Intake Total 859.92 ml Output Total 1450 ml Balance -590.08 ml Intake Oral 660 ml IV Total 199.92 ml Output Urine Total 1450 ml Medications Current Medications Medications Dose Ordered Sig/Bijan Route Start Time Stop Time Status Last Admin Dose Admin Acetaminophen 650 mg Q6HP PRN PO 03/25/24 13:30 04/01/24 07:00 650 MG Nitroglycerin 0.4 mg Q5MINP PRN SL 03/25/24 13:30 Morphine Sulfate 2 mg Q30M PRN IV 03/25/24 13:30 03/26/24 08:00 2 MG Pantoprazole Sodium 40 mg DAILY IV 03/27/24 10:00 04/01/24 09:13 40 MG Enoxaparin Sodium 80 mg Q12HR SC 03/26/24 22:00 04/01/24 09:14 80 MG Dorzolamide HCl 1 drop BID@0700,2200 EACHEYE 03/26/24 22:00 03/31/24 06:32 1 DROP Furosemide 40 mg BIDD IV 03/26/24 18:00 04/01/24 05:55 40 MG Aspirin 81 mg DAILY PO 03/27/24 10:00 04/01/24 09:13 81 MG Potassium Bicarbonate 25 meq BID PO 03/29/24 22:00 04/01/24 09:12 25 MEQ Laboratory Results Laboratory Tests 03/29/24 07:17 03/30/24 06:25 Urinalysis Test 03/25/24 11:12 Urine Color Light-yellow (Yellow) Urine Clarity Clear (Clear) Urine pH 5.5 (5.0-9.0) Urine Specific [place] 1.009 (1.001-1.035) Urine Protein Negative (Negative) Urine Ketones Negative (Negative) Urine Blood Negative /uL (Negative) Urine Nitrite Negative (Negative) Urine Bilirubin Negative (Negative) Urine Urobilinogen Normal mg/dL (Negative) Urine Leukocyte Esterase Negative /uL (Negative) Urine RBC 1 /hpf (0 - 4) Urine WBC 1 /hpf (0 - 5) Urine Squamous Epithelial Cells None seen /hpf (<5) Urine Bacteria None seen /hpf (None Seen) Urine Hyaline Casts Few /lpf (0 - 2) Urine Glucose Normal mg/dL (Normal) Labs and/or images reviewed: Labs reviewed by me, Image(s) reviewed by me Assessment/Plan Assessment/Plan Covering For Dr. Irby #1 acute resp failure: intermittently on bipap, abg #2 acute systolic/diastolic heart failure: lasix iv cardiology consult by Dr. Rose appreciated #3 s/p tavr: echo #4 hyperlipidemia #5 htn #6 nstemi: c angio #7 Severe aortic stenosis requiring valve replacement #8 a fib: on amiodarone #9 hyponatremia/hypokalemia: replace Awaiting transfer to [facility] Discussed with the patient and her daughter Jennifer at the bedside Patient is Anxious and worried why she is not being transferred, I advised the social sciences professor working on transfer medical services manager working on different hospitals for transfer Ordered CBC CMP magnesium for today and tomorrow Plan discussed with: Patient My Orders Orders - JERSEY HERNANDEZ MD Procedure Category Date Status Time * Svp Group Director CONS 03/31/24 Transmitted Consult Date of Service: Apr 01, 2024 Billing Provider: JERSEY HERNANDEZ MD Common Visit Codes: [id number] CARE [id number] MIN JERSEY HERNANDEZ MD Apr 01, 2024 11:14
[2024-04-01] MEDS ORDERED: LACTULOSE 20Gm/30ML SOLN PO PRN (11:45)
[2024-04-01 12:09] LABS: Basophils # (auto) 0 10 ^3/uL (0-0.2); Basophils % (auto) 0.1 % (0.0-2.0); Eosinophils # (auto) 0.1 10 ^3/uL (0-0.8); Eosinophils % (auto) 0.6 % (0.0-7.0); Hematocrit 36.6 % (36.0-46.0); Hemoglobin 12.7 g/dL (12.2-16.2); Lymphocytes % (auto) 8.4 % (10.0-50.0); Mean Corpuscular Hemoglobin 32.4 pg (28.0-32.0); Mean Corpuscular Hgb Conc. 34.7 g/dL (32.0-36.0); Mean Corpuscular Volume 93.2 fL (80.0-100.0); Monocytes # (auto) 1.4 10 ^3/uL (0-1.3); Monocytes % (auto) 11.5 % (0.0-12.0); Neutrophils # (auto) 9.6 10 ^3/uL (1.6-8.6); Neutrophils % (auto) 79.4 % (37.0-80.0); Nucleated Red Blood Cells % 0.2 %; Platelet Count (auto) 301 10^3/uL (140-450); Red Blood Cells 3.93 10^6/uL (4.0-5.20); Red Cell Distribution Width 13.2 % (11.8-14.3); White Blood Cell 12.1 10^3/uL (4.4-10.8)
[2024-04-01 12:27] LABS: Alanine Aminotransferase 32 U/L (7-40); Alkaline Phosphatase 74 U/L (46-116); Anion Gap 4 (5-15); Aspartate Aminotransferase 34 U/L (13-40); BUN/Creatinine Ratio 15.7 (10.0-20.0); Blood Urea Nitrogen 13 mg/dL (9-23)
[2024-04-01 12:28] LABS: Bilirubin, Total 0.7 mg/dL (0.2-1.0); Total Protein 6.8 g/dL (5.7-8.2)
[2024-04-01 12:48] LABS: Carbon Dioxide 33 mmol/L (20-31); Chloride 77 mmol/L (98-107); Glucose 161 mg/dL (74-106); Potassium 5.4 mmol/L (3.5-5.1)
[2024-04-01 12:50] LABS: Sodium 114 mmol/L (136-145)
[2024-04-01] MEDS ORDERED: SODIUM CHLORIDE 0.9% 1,000 ML IV ONE (17:15)
[2024-04-01] MEDS: SODIUM CHLORIDE 0.9% 500 ML IV ONE (18:32)
--- NOTE | 2024-04-01 22:47 | DVHPN2 ---
Progress Note - Dictate Date Seen: Apr 01, 2024 Medical Necessity Reason Pt with a Central, PICC or Fol: Yes The following are medically ne: Bob Catheter Reason for bob catheter: Strict I&O Subjective Patient seen and examined at bedside. Currently on BiPAP Overnight events reviewed. vital signs Vital Sign Date Time Temp Pulse Resp B/P (MAP) Pulse Ox O2 Delivery O2 Flow Rate FiO2 04/01/24 22:30 86 27 100 04/01/24 20:01 Facial BiPAP Mask 28 04/01/24 20:00 99.0 99.0 04/01/24 08:00 4 Total Intake and Output 03/31/24 03/31/24 04/01/24 15:00 23:00 07:00 Intake Total 559.92 ml 300 ml Output Total 900 ml 550 ml Balance -340.08 ml -250 ml medications Current Medications Medications Dose Ordered Sig/Bijan Route Start Time Stop Time Status Last Admin Dose Admin Acetaminophen 650 mg Q6HP PRN PO 03/25/24 13:30 04/01/24 07:00 650 MG Nitroglycerin 0.4 mg Q5MINP PRN SL 03/25/24 13:30 Morphine Sulfate 2 mg Q30M PRN IV 03/25/24 13:30 03/26/24 08:00 2 MG Pantoprazole Sodium 40 mg DAILY IV 03/27/24 10:00 04/01/24 09:13 40 MG Enoxaparin Sodium 80 mg Q12HR SC 03/26/24 22:00 04/01/24 22:00 80 MG Dorzolamide HCl 1 drop BID@0700,2200 EACHEYE 03/26/24 22:00 03/31/24 06:32 1 DROP Furosemide 40 mg BIDD IV 03/26/24 18:00 04/01/24 18:29 40 MG Aspirin 81 mg DAILY PO 03/27/24 10:00 04/01/24 09:13 81 MG Lactulose 30 ml DAILYPRN PRN PO 04/01/24 11:45 objective Gen.: Patient lying in bed in no apparent distress. On BIPAP Head: Normocephalic, atraumatic. Eyes: EOMI/PERRLA. Ears: Normal hearing. Normal anatomy. Neck/trachea: Trachea midline, supple. Nose: Normal external anatomy. Mouth: Moist mucous membranes. Chest: Decreased air entry bilaterally. No wheezing or rhonchi. Cardiovascular: Positive S1, positive S2. Regular rate and rhythm. Abdomen: Positive bowel sounds in all 4 quadrants. Soft, non-tender, non- distended. : Deferred. Rectal: Deferred. Skin: Warm, dry. Intact. Extremities: 2+ radial pulses bilaterally. No lower extremity edema. Neuro: Awake, alert, oriented x3. No gross motor or sensory deficits. Cranial nerves II through XII intact. Gait not assessed. laboratory and microbiology Laboratory Tests 04/01/24 20:02 04/01/24 11:53 Test 04/01/24 11:53 Range/Units Serum Glucose 161 H 74-106 mg/dL Assessment/Plan Impression: Acute hypoxic respiratory failure Acute hypercarbic respiratory failure COPD exacerbation New onset CHF Leukocytosis Elevated D-dimer Elevated troponin Obesity BMI 30.4 Events: Upgrade to [place]IE[place]A to monitor respiratory status. Plan for HLOC for TAVR. On BiPAP with IPAP increased to 14 cmH2O, FiO2 28% Transition to low flow O2 as tolerated CXR reviewed, notable for interstitial edema/small pleural effusions. Obtain CXR in AM to assess for interval changes. Continue bronchodilators Diurese w/ Lasix as tolerated Monitor renal function. Monitor electrolytes. Supplement as necessary. Potassium supplementation Protonix for GI prophylaxis Labs and imaging reviewed. Rest of plan as noted below. Plan: On BiPAP with IPAP increased to 14 cmH2O, FiO2 28% Transition to low flow O2 as tolerated Titrate to keep O2 sats above 92%. Continue bronchodilators. Diurese to euvolemia Monitor renal function. Monitor electrolytes. Supplement as necessary. Monitor ins and outs. Diet and lifestyle modifications for weight reduction Obesity - complicates all care Plan for HLOC for TAVR. DVT prophylaxis. Prognosis: Poor given patient's multiple co-morbidities. Condition: Critical Rest of plan per hospitalist and other consultants. A total of 35 minutes of critical care time was spent reviewing the patient record, examining the patient, making a diagnostic and therapeutic plan, discussing this plan with the medical personnel, following up on diagnostic studies and following the patient for clinical stability excluding any and all procedures. At least 50% of this time was spent in direct, [id number] contact. Thank you, BETTY Vincent, for allowing me to participate in this patient's care. Further recommendations will depend on the patient's clinical course. Please do not hesitate to contact me if you have any questions or concerns. This medical document was created using an electronic medical record system with [employer] dictation system. Although these documentations are being carefully reviewed, there may still be some phonetic and typographical changes. The errors are purely typographical, due to imperfection on the software program, and do not reflect any compromise in the patient's medical care. Dietary Evaluation Review Comments: Continue current plan of care Expected Outcomes/Goals: F/U in 3-5 days Plan discussed with: Other (JACOB Moon) Critical Care Time(min): 35 PAWEL CASTANON MD Apr 01, 2024 22:47
[2024-04-02] VITALS (48 sets, daily range): BP systolic 93–126; BP diastolic 35–67; PULSE 70–91; RESP 13–29; TEMP 96.4–98.2; O2SAT 89–100
[2024-04-02 05:17] LABS: Basophils # (auto) 0 10 ^3/uL (0-0.2); Basophils % (auto) 0.2 % (0.0-2.0); Eosinophils # (auto) 0 10 ^3/uL (0-0.8); Eosinophils % (auto) 0.2 % (0.0-7.0); Hematocrit 32.6 % (36.0-46.0); Hemoglobin 11.4 g/dL (12.2-16.2); Lymphocytes # (auto) 1.2 10 ^3/uL (0.4-5.4); Lymphocytes % (auto) 11.3 % (10.0-50.0); Mean Corpuscular Hemoglobin 32.8 pg (28.0-32.0); Mean Corpuscular Hgb Conc. 34.8 g/dL (32.0-36.0); Mean Corpuscular Volume 94.1 fL (80.0-100.0); Monocytes # (auto) 1.2 10 ^3/uL (0-1.3); Monocytes % (auto) 11.6 % (0.0-12.0); Neutrophils % (auto) 76.7 % (37.0-80.0); Platelet Count (auto) 276 10^3/uL (140-450); Red Blood Cells 3.47 10^6/uL (4.0-5.20); Red Cell Distribution Width 13.4 % (11.8-14.3); White Blood Cell 10.5 10^3/uL (4.4-10.8)
[2024-04-02 05:34] LABS: Alanine Aminotransferase 32 U/L (7-40); Albumin 3.6 g/dL (3.2-4.8); Alkaline Phosphatase 70 U/L (46-116); Anion Gap 2 (5-15); Aspartate Aminotransferase 34 U/L (13-40); Bilirubin, Total 0.8 mg/dL (0.2-1.0); Calcium 9.6 mg/dL (8.7-10.4)
--- NOTE | 2024-04-02 05:34 | DVH ---
CHEST RADIOGRAPH Indication: SOB Technique: Single frontal view of the chest was obtained Comparison: XY CHEST PORTABLE on DOS: 03/29/24 FINDINGS: Lines and Tubes: None Lungs: Bilateral interstitial prominence similar to prior study. Pleura: Bilateral pleural effusions, unchanged. No pneumothorax. Cardiomediastinal contours: Stable Bones: No acute osseous abnormality. IMPRESSION: 1. Bilateral interstitial prominence compatible with pulmonary edema. Stable bilateral pleural effus ions.
[2024-04-02 06:39] LABS: Carbon Dioxide 36 mmol/L (20-31); Chloride 77 mmol/L (98-107); Glucose 136 mg/dL (74-106); Potassium 5.2 mmol/L (3.5-5.1)
[2024-04-02 06:40] LABS: Sodium 115 mmol/L (136-145)
--- NOTE | 2024-04-02 09:30 | DVHPN2 ---
Progress Note - Dictate Date Seen: Apr 02, 2024 Medical Necessity Reason Pt with a Central, PICC or Fol: Yes The following are medically ne: Bob Catheter Reason for bob catheter: Strict I&O vital signs Vital Sign Date Time Temp Pulse Resp B/P (MAP) Pulse Ox O2 Delivery O2 Flow Rate FiO2 04/02/24 08:00 97.3 80 22 121/60 (80) 97.3 04/02/24 07:56 96 Bi-Pap+ 28 28 04/02/24 07:30 4 Total Intake and Output 04/01/24 04/01/24 04/02/24 15:00 23:00 07:00 Intake Total 1333.22 ml 233.28 ml Output Total 425 ml 700 ml Balance 908.22 ml -466.72 ml medications Current Medications Medications Dose Ordered Sig/Bijan Route Start Time Stop Time Status Last Admin Dose Admin Acetaminophen 650 mg Q6HP PRN PO 03/25/24 13:30 04/02/24 06:35 650 MG Nitroglycerin 0.4 mg Q5MINP PRN SL 03/25/24 13:30 Morphine Sulfate 2 mg Q30M PRN IV 03/25/24 13:30 03/26/24 08:00 2 MG Pantoprazole Sodium 40 mg DAILY IV 03/27/24 10:00 04/01/24 09:13 40 MG Enoxaparin Sodium 80 mg Q12HR SC 03/26/24 22:00 04/01/24 22:00 80 MG Dorzolamide HCl 1 drop BID@0700,2200 EACHEYE 03/26/24 22:00 03/31/24 06:32 1 DROP Furosemide 40 mg BIDD IV 03/26/24 18:00 04/02/24 05:36 40 MG Aspirin 81 mg DAILY PO 03/27/24 10:00 04/01/24 09:13 81 MG Lactulose 30 ml DAILYPRN PRN PO 04/01/24 11:45 Amiodarone HCl 200 mg BID PO 04/02/24 10:00 UNV laboratory and microbiology Laboratory Tests 04/02/24 04:54 Test 04/02/24 04:54 Range/Units Serum Glucose 136 H 74-106 mg/dL Assessment/Plan Patient is a 88-year-old female who presented to the hospital with shortness of breath. It seems that the patient was found by EMS with oxygen saturation of 87% at home. Later, the patient was started on CPAP and was given Lasix which improved her clinical status. It is reported that she has had more fluids and chips/mercer prior to presentation. Later on tele floor she got more short of breath and was started on BiPAP. Cardiology is involved for cardiac aspects of care. Patient is known to our practice from outside. 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 It is of note that echocardiogram of November 2023 had revealed some component of aortic stenosis. Being managed in [place]. Overweight female. Using accessory muscles of breathing. Mucosa is pink and wet. No goiter. Long examination reveals scattered rhonchi/rales. Cardiac: Irregular, systolic murmur 3/6 in the apex/base is heard. Abdomen is soft. Bowel sound is positive. Mild hepatomegaly is observed. Extremities reveal 2+ edema. Dorsalis pedis is 2+ bilateral. Past medical history includes valvular heart disease and status post TAVR, DJD, GERD, gallstones, neuropathy and pulmonary hypertension. Echocardiogram of December 05, 2023 (performed in the office) revealed mild concentric left ventricular hypertrophy, ejection fraction 60 65%, moderate left atrial enlargement, right ventricular systolic pressure 41 mm Hg, mild TR, mild mitral annular calcification, trace PI, aortic valve replacement with up to moderate stenosis, trace aortic insufficiency. WBC: 12.3 - 11.9 - 10.4 - 7.4 - 12.1 - 10.5 D-dimer: 0.97 Creatinine: 0.88 - 1.09 - 0.67 - 0.79 - 0.68 - 0.65 - 0.65 - 0.83 - 0.79 Potassium: 4.4 - 4.2 - 3.5 - 3.7 - 3.8 - 3.6 - 3.3 - 3.9 - 5.4 - 5.2 AST/ALT: 30/21 - 180/107 - 141/35 - 34/32 - 34/32 Troponin (high sensitive): 37 - 75 - 131 - 9932 - 47266 - 10731 - 11008 BNP: 421.38 Chest x-ray reported: Lines and Tubes: None Lungs: No focal consolidation. Pleura: No effusion. No pneumothorax. Cardiomediastinal contours: Cardiomegaly Bones: No acute osseous abnormality. IMPRESSION: Cardiomegaly with chf Repeat chest x-ray revealed: IMPRESSION: 1. Mild interstitial pulmonary edema. 2. Small bilateral effusions. Repeat chest x-ray revealed: IMPRESSION: 1. Mild interstitial pulmonary edema. 2. Small bilateral effusions. Repeat chest xry revealed: IMPRESSION: 1. Mild interstitial pulmonary edema. 2. Small bilateral effusions. Repeat chest xry revealed: IMPRESSION: 1. Bilateral interstitial prominence compatible with pulmonary edema. Stable bilateral pleural effusions. EKG reveals sinus tachycardia with left bundle branch block Tele reveals sinus tachycardia with left bundle branch block, later: a-fib with RVR, then a-fib with MVR and again: afib with rvr , later: NSR Echocardiogram reported: Technically limited study secondary to poor acoustic windows. Left ventricle: Mild concentric left ventricular hypertrophy was seen. LVEF was 55-60%. Even though no gross wall motion abnormality was observed, its presence can not be ruled out and the basis of this study. Right ventricle is normal size with normal systolic function. Both atria were mildly dilated. Aortic valve: Presence of previous Bioprosthetic valve in Aortic position cannot be ruled out. It was mild insufficiency. Severe stenosis was observed (peak/mean pressure gradient across the aortic valve was 92/65 mm Hg and calculated aortic valve area was 0.6 cm). Mitral valve: Mild mitral regurgitation was seen. Mild mitral annular calcification was observed. There was mild tricuspid regurgitation. Pulmonary valve revealed mild insufficiency. Right ventricular systolic pressure was assessed around 62 mm Hg. There was no pericardial effusion. Consider STEVE for further evaluation of aortic valve. Transesophageal echocardiogram was performed: Revealed significant bioprosthetic aortic valve stenosis, peak/mean pressure gradient across aortic valve was 115/72 mm Hg and calculated aortic valve area was 0.5 centimeter Left heart catheterization was performed: Revealed nonobstructive coronary artery disease Patient is a 88-year-old female presented with shortness of breath. She was found to have acute heart failure. Does have history of valvular heart disease an echocardiogram is in favor of significant aortic stenosis (valve restenosis?). Does have component of pulmonary hypertension which can be considered type 2. He is found to have mildly abnormal D-dimer. She did have episode of atrial fibrillation with RVR. Later, she leaked troponin questioning non-STEMI. She did have STEVE which confirmed significant bioprosthetic aortic valve stenosis. She did have left heart catheterization which did not reveal any significant coronary disease. Abnormal troponin is considered to reflects type 2 physiology at this point. Referral to higher level of care for management of significant bioprosthetic aortic valve stenosis is suggested. Severe bioprosthetic aortic valve stenosis New onset atrial fibrillation Atrial fibrillation with RVR Status post STEVE Status post left heart catheterization Short of breath Acute respiratory failure Acute heart failure, diastolic Valvular heart disease s/p TAVR COPD exacerbation Obesity Abnormal D-dimer Cardiac suggestion for management: Manage in MARIELLA Respiratory support, BiPAP/CPAP IV Lasix (40 mg twice daily) Follow-up electrolytes and kidney function test and correct abnormalities. Keep potassium above 4 and magnesium above 2 Change IV amiodarone to oral Full anticoagulation (started on Lovenox, therapeutic dose), recognizing atrial fibrillation with high CHADS-VASc score Aspirin: 81 mg daily Needs transferred to high level of care for management of bioprosthetic aortic valve stenosis. [facility] has [facility] patient. Please send a copy of imaging/CD of cardiac catheterization/steve/echocardiogram with reports to the higher level of care A total of 55 minutes was spent reviewing the patient record, examining the patient, making a diagnostic and therapeutic plan, discussing this plan with medical personnel, following up on diagnostic studies and following the patient for clinical stability excluding any and all procedures. At least 50% of this time was spent in direct, [id number] contact. Thank you for allowing me to participate in this patient's care. Further recommendations will depend on patient's clinical course. Please do not hesitate to contact me if you have any questions or concerns. This medical document was created using electronic medical record system with [employer] computerized dictation system. Although this document has been carefully reviewed, there may still be some phonetic and typographical errors. These areas are purely typographical due to the imperfection of the software programs, and do not reflect any compromise in the patient's medical care. Dietary Evaluation Review Comments: Continue current plan of care Expected Outcomes/Goals: F/U in 3-5 days Plan discussed with: Patient, Other (nurse) JAZLYN LR MD Apr 02, 2024 09:30
--- NOTE | 2024-04-02 10:18 | DVHPN2 ---
Progress Note Date Seen: Apr 02, 2024 Medical Necessity Reason Pt with a Central, PICC or Fol: Yes The following are medically ne: Bob Catheter Reason for bob catheter: Strict I&O Subjective Patient reports: No new complaints Review of Systems: HEENT:Normal, CVS:Normal, RESPIRATORY:Normal, GI:Normal, :Normal, MSK:Normal, NEURO:Normal Objective vital signs Vital Sign Date Time Temp Pulse Resp B/P (MAP) Pulse Ox O2 Delivery O2 Flow Rate FiO2 04/02/24 09:41 26 100 Nasal Cannula* 4 36 04/02/24 09:41 82 04/02/24 08:00 97.3 121/60 (80) 97.3 Total Intake and Output 04/01/24 04/01/24 04/02/24 15:00 23:00 07:00 Intake Total 1333.22 ml 233.28 ml Output Total 425 ml 700 ml Balance 908.22 ml -466.72 ml medications Current Medications Medications Dose Ordered Sig/Bijan Route Start Time Stop Time Status Last Admin Dose Admin Acetaminophen 650 mg Q6HP PRN PO 03/25/24 13:30 04/02/24 06:35 650 MG Nitroglycerin 0.4 mg Q5MINP PRN SL 03/25/24 13:30 Morphine Sulfate 2 mg Q30M PRN IV 03/25/24 13:30 03/26/24 08:00 2 MG Pantoprazole Sodium 40 mg DAILY IV 03/27/24 10:00 04/01/24 09:13 40 MG Enoxaparin Sodium 80 mg Q12HR SC 03/26/24 22:00 04/01/24 22:00 80 MG Dorzolamide HCl 1 drop BID@0700,2200 EACHEYE 03/26/24 22:00 03/31/24 06:32 1 DROP Aspirin 81 mg DAILY PO 03/27/24 10:00 04/01/24 09:13 81 MG Lactulose 30 ml DAILYPRN PRN PO 04/01/24 11:45 Amiodarone HCl 200 mg BID PO 04/02/24 10:00 Furosemide 100 mg/ Sodium Chloride 110 ml @ 11 mls/hr Q10H IV 04/02/24 10:00 Examination: GENERAL:Normal, HEENT:Normal, NECK:Normal, LUNGS:Normal, LUNGS:Abnormal (on oxygen, rales), CVS:Normal, ABDOMEN:Normal, MSK:Normal, SKIN:Normal, NEURO:Normal, :Normal laboratory and microbiology Laboratory Tests 04/02/24 04:54 Test 04/02/24 04:54 Range/Units Serum Glucose 136 H 74-106 mg/dL Problem List/Assessment/Plan Problem List/Assessment/Plan #1 acute resp failure: intermittently on bipap, abg- now on oxygen #2 acute systolic/diastolic heart failure: lasix drip #3 s/p tavr: echo #4 hyperlipidemia #5 htn #6 nstemi: c angio #7 severe #8 a fib: on amiodarone #9 severe hyponatremia: monitor await transfer to [facility] advance care planning- full code- time spent 21 mins Plan discussed with: Patient, Daughter My Orders My Orders Orders - ERNESTO BANEGAS MD Procedure Category Date Status Time Nutritional PHA 04/02/24 Verified Supplements (Ensure 18:00 Basic Metabolic Panel LAB 04/03/24 Verified 06:00 Magnesium LAB 04/03/24 Verified 05:00 Dietary Evaluation Review Comments: Continue current plan of care Expected Outcomes/Goals: F/U in 3-5 days Critical Care Time (mins): 37 (critical care time 37mins) Date of Service: Apr 02, 2024 Billing Provider: ERNESTO BANEGAS MD Common Visit Codes: [id number] CARE 30-74 MIN ERNESTO BANEGAS MD Apr 02, 2024 10:18
[2024-04-02 10:39] LABS: Phosphorus 4.1 mg/dL (2.4-5.1)
[2024-04-02] MEDS: AMIODARONE HCL 200 MG TAB PO SCH (11:10)
[2024-04-02] MEDS: FUROSEMIDE INJECTION 100 MG in SODIUM CHL 0.9% 100 ML IV SCH (11:10)
[2024-04-02 12:26] LABS: BUN/Creatinine Ratio 16.5 (10.0-20.0); Blood Urea Nitrogen 13 mg/dL (9-23)
--- NOTE | 2024-04-02 13:10 | DVHINCON2 ---
Date of service: Apr 02, [address] Noe Reason for Consultation Hyponatremia History of Present Illness Patient is a 89-year-old female with past medical history of bioprosthetic aortic valve replacement and aortic valve stenosis, Congestive heart failure and pulmonary hypertension is admitted for worsening shortness of breath. Hospital stay was significant for progressive hyponatremia. Nephrology is consulted for assist in the management of hyponatremia Past Medical History Aortic valve stenosis Pulmonary hypertension Congestive heart failure Past Surgical History Aortic valve replacement Allergies: Coded Allergies: Azithromycin (Verified Allergy, Severe, 03/25/24) ANAPHYLACTIC SHOCK PER PT Sulfa Antibiotics (Verified Allergy, Unknown, 03/25/24) Home Meds Reported Medications Nystatin (Mycostatin) 1 Applic Ap, 1 APPLIC TOP BID for 25 Days, #60 APPLY TOPICALLY TO THE AFFECTED AREA TWICE DAILY. 03/27/24 Nitrofurantoin Monohyd Macro (Nitrofurantoin Monohydrat) 100 Mg Cap, 1 CAP PO BID for 30 Days, #60 03/27/24 Cephalexin Monohydrate (Cephalexin) 500 Mg Cap, 1 TAB PO TID for 7 Days, #21 03/27/24 Fluticasone-Salmeterol (Advair Diskus 100-50 Mcg/Dose) 1 Aer Aer, 1 PUFF IN DAILY for 60 Days, #60 03/27/24 Metoprolol Succinate (Metoprolol Succinate Er) 25 Mg Tab, 1 TAB PO BID for 90 Days, #180 03/27/24 Ibuprofen (Ibuprofen) 200 Mg Cap, 200 MG PO PRN, MG 03/25/24 Aspirin (Aspir-Low) 81 Mg Tab, 81 MG PO DAILY for 30 Days, MG 03/25/24 Famotidine (Famotidine) 20 Mg Tab, 1 TAB PO BID for 90 Days, #180 03/25/24 Alirocumab (Praluent) 75 Mg/Ml Inj, 75 MG SC for 84 Days, #6 INJECT 75 MG UNDER THE SKIN EVERY 2 WEEKS. 03/25/24 Dorzolamide-Timolol (Dorzolamide Hcl/Timolol M) 1 Ml Renetta, 1 DROP EACHEYE BID, #10 ML 6 Refills 03/25/24 Current Medications Current Medications Medications (Trade) Dose Ordered Sig/Bijan Route PRN Reason Start Time Stop Time Status Last Admin Amiodarone HCl (Cordarone Tablet) 200 mg BID PO 04/02/24 10:00 04/02/24 11:10 Furosemide 100 mg/ Sodium Chloride 110 ml @ 11 mls/hr Q10H IV 04/02/24 10:00 04/02/24 11:10 Enteral Nutritional Formula (Ensure High Protein) 240 ml BIDWM PO 04/02/24 18:00 Family History: Patient reports no known family medical history. Review of Systems All 12 item review of systems reviewed with the patient nonsignificant except what is mentioned in the history of present illness H&P Exam Vital Signs/I&O Vital Sign Date Time Temp Pulse Resp B/P (MAP) Pulse Ox O2 Delivery O2 Flow Rate FiO2 04/02/24 12:58 26 100 Nasal Cannula* 4 36 04/02/24 12:58 82 04/02/24 11:10 109/56 04/02/24 08:00 97.3 97.3 Intake and Output 04/01/24 04/02/24 19:00 07:00 Intake Total 766.58 ml 799.92 ml Output Total 425 ml 700 ml Balance 341.58 ml 99.92 ml Intake Oral 550 ml 100 ml IV Total 216.58 ml 699.92 ml Output Urine Total 425 ml 700 ml Physical Exam Patient is awake moderate respiratory distress O2 nasal cannula Lungs bibasilar crackles Cardiac exam regular rate rhythm GI soft nontender Lincoln catheter Extremity 1+ edema Neuro nonfocal Labs/Diagnostic Data Labs/Diagnostic Data Laboratory Tests Test 04/02/24 04:54 04/01/24 20:02 04/01/24 11:53 03/30/24 06:25 Range/Units White Blood Count 10.5 12.1 #H 4.4-10.8 10^3/uL Red Blood Count 3.47 L 3.93 L 4.0-5.20 10^6/uL Hemoglobin 11.4 L 12.7 12.2-16.2 g/dL Hematocrit 32.6 #L 36.6 36.0-46.0 % Mean Corpuscular Volume 94.1 93.2 80.0-100.0 fL Mean Corpuscular Hemoglobin 32.8 H 32.4 H 28.0-32.0 pg Mean Corpuscular Hemoglobin Concent 34.8 34.7 32.0-36.0 g/dL Red Cell Distribution Width 13.4 13.2 11.8-14.3 % Platelet Count 276 301 140-450 10^3/uL Mean Platelet Volume 8.1 8.2 6.9-10.8 fL Neutrophils (%) (Auto) 76.7 79.4 37.0-80.0 % Lymphocytes (%) (Auto) 11.3 8.4 L 10.0-50.0 % Monocytes (%) (Auto) 11.6 11.5 0.0-12.0 % Eosinophils (%) (Auto) 0.2 0.6 0.0-7.0 % Basophils (%) (Auto) 0.2 0.1 0.0-2.0 % Neutrophils # (Auto) 8.0 9.6 H 1.6-8.6 10 ^3/uL Lymphocytes # (Auto) 1.2 1.0 0.4-5.4 10 ^3/uL Monocytes # (Auto) 1.2 1.4 H 0-1.3 10 ^3/uL Eosinophils # (Auto) 0 0.1 0-0.8 10 ^3/uL Basophils # (Auto) 0 0 0-0.2 10 ^3/uL Nucleated Red Blood Cells 0.0 0.2 % Sodium Level 115 *L 115 *L 114 #*L 124 L 136-145 mmol/L Potassium Level 5.2 H 5.4 H 3.9 3.5-5.1 mmol/L Chloride Level 77 L 77 #L 88 L 98-107 mmol/L Carbon Dioxide Level 36 H 33 H 31 20-31 mmol/L Anion Gap 2 L 4 L 5 5-15 Blood Urea Nitrogen 13 13 11 9-23 mg/dL Creatinine 0.79 0.83 0.65 0.550-1.02 mg/dL Glomerular Filtration Rate Calc 72 68 85 >90 mL/min BUN/Creatinine Ratio 16.5 15.7 16.9 10.0-20.0 Serum Glucose 136 H 161 H 127 H 74-106 mg/dL Calcium Level 9.6 10.0 9.0 8.7-10.4 mg/dL Phosphorus Level 4.1 2.4-5.1 mg/dL Magnesium Level 2.0 2.0 2.1 1.6-2.6 mg/dL Total Bilirubin 0.8 0.7 0.2-1.0 mg/dL Aspartate Amino Transferase (AST) 34 34 13-40 U/L Alanine Aminotransferase (ALT) 32 32 7-40 U/L Alkaline Phosphatase 70 74 46-116 U/L Total Protein 6.0 6.8 5.7-8.2 g/dL Albumin 3.6 4.0 3.2-4.8 g/dL Test 03/29/24 07:17 03/28/24 05:22 03/27/24 06:15 03/27/24 00:25 Range/Units White Blood Count 7.4 # 10.4 4.4-10.8 10^3/uL Red Blood Count 3.68 L 3.81 L 4.0-5.20 10^6/uL Hemoglobin 12.2 12.6 12.2-16.2 g/dL Hematocrit 34.8 L 36.6 36.0-46.0 % Mean Corpuscular Volume 94.5 96.2 80.0-100.0 fL Mean Corpuscular Hemoglobin 33.0 H 33.1 H 28.0-32.0 pg Mean Corpuscular Hemoglobin Concent 34.9 34.4 32.0-36.0 g/dL Red Cell Distribution Width 13.1 13.3 11.8-14.3 % Platelet Count 211 212 140-450 10^3/uL Mean Platelet Volume 8.6 8.3 6.9-10.8 fL Neutrophils (%) (Auto) 66.0 69.8 37.0-80.0 % Lymphocytes (%) (Auto) 21.8 18.8 10.0-50.0 % Monocytes (%) (Auto) 11.0 10.7 0.0-12.0 % Eosinophils (%) (Auto) 1.1 0.6 0.0-7.0 % Basophils (%) (Auto) 0.1 0.1 0.0-2.0 % Neutrophils # (Auto) 4.9 7.2 1.6-8.6 10 ^3/uL Lymphocytes # (Auto) 1.6 1.9 0.4-5.4 10 ^3/uL Monocytes # (Auto) 0.8 1.1 0-1.3 10 ^3/uL Eosinophils # (Auto) 0.1 0.1 0-0.8 10 ^3/uL Basophils # (Auto) 0 0 0-0.2 10 ^3/uL Nucleated Red Blood Cells 0.0 0.0 % Sodium Level 127 L 131 L 133 L 136-145 mmol/L Potassium Level 3.3 L 3.6 3.8 3.5-5.1 mmol/L Chloride Level 91 L 94 L 95 L 98-107 mmol/L Carbon Dioxide Level 30 31 29 20-31 mmol/L Anion Gap 6 6 9 5-15 Blood Urea Nitrogen 10 15 20 9-23 mg/dL Creatinine 0.65 0.68 0.79 0.550-1.02 mg/dL Glomerular Filtration Rate Calc 85 84 72 >90 mL/min BUN/Creatinine Ratio 15.4 22.1 H 25.3 H 10.0-20.0 Serum Glucose 134 H 133 H 129 H 74-106 mg/dL Calcium Level 9.6 9.3 9.4 8.7-10.4 mg/dL Magnesium Level 1.9 1.6-2.6 mg/dL Total Bilirubin 0.8 0.2-1.0 mg/dL Aspartate Amino Transferase (AST) 141 H 13-40 U/L Alanine Aminotransferase (ALT) 35 7-40 U/L Alkaline Phosphatase 68 46-116 U/L Troponin I High Sensitivity 86227 *H 31112 *H </=34 ng/L Total Protein 6.3 5.7-8.2 g/dL Albumin 3.9 3.2-4.8 g/dL Test 03/26/24 22:00 03/26/24 20:39 03/26/24 20:14 03/26/24 20:02 Range/Units Troponin I High Sensitivity 24684 *H 9939 *H </=34 ng/L Blood Gas Specimen Type Arterial Blood Gas Sample Site Left radial Blood Gas Patient Temperature 37.0 Arterial Blood Date Drawn [id number] Arterial Blood pH 7.478 H 7.350-7.450 Arterial Blood Partial Pressure CO2 34.2 32.0-45.0 mmHg Arterial Blood Partial Pressure O2 96.2 83.0-108.0 mmHg Arterial Blood HCO3 24.8 21.0-28.0 mmol/L Arterial Blood Oxygen Saturation 97.2 94.0-98.0 % Arterial Blood Base Excess 1.7 -2.0-3.0 mmol/L Arterial Blood Oxyhemoglobin 95.8 94.0-98.0 % Arterial Blood Carboxyhemoglobin 1.1 0.5-1.5 % Arterial Blood Methemoglobin 0.3 0.0-1.5 % Adriel Test Yes Blood Gas Total Hemoglobin 13.80 12.0-16.0 g/dL Blood Gas Modality Mask - bipap FiO2 % 40.0 POC Glucose 130 H 70-106 mg/dl Sodium Level 132 #L 136-145 mmol/L Potassium Level 3.7 3.5-5.1 mmol/L Chloride Level 95 L 98-107 mmol/L Carbon Dioxide Level 26 20-31 mmol/L Anion Gap 11 5-15 Blood Urea Nitrogen 21 # 9-23 mg/dL Creatinine 0.67 # 0.550-1.02 mg/dL Glomerular Filtration Rate Calc 85 >90 mL/min BUN/Creatinine Ratio 31.3 H 10.0-20.0 Serum Glucose 125 H 74-106 mg/dL Calcium Level 9.6 8.7-10.4 mg/dL Magnesium Level 2.0 1.6-2.6 mg/dL Test 03/26/24 12:40 03/26/24 10:50 03/26/24 07:09 03/26/24 04:39 Range/Units Blood Gas Specimen Type Arterial Arterial Blood Gas Sample Site Right radial Right radial Blood Gas Patient Temperature 37.0 37.0 Arterial Blood Date Drawn [id number] Arterial Blood pH 7.412 7.313 L 7.350-7.450 Arterial Blood Partial Pressure CO2 43.8 50.9 H 32.0-45.0 mmHg Arterial Blood Partial Pressure O2 86.7 71.0 L 83.0-108.0 mmHg Arterial Blood HCO3 27.3 25.2 21.0-28.0 mmol/L Arterial Blood Oxygen Saturation 96.1 91.3 L 94.0-98.0 % Arterial Blood Base Excess 2.3 -1.6 -2.0-3.0 mmol/L Arterial Blood Oxyhemoglobin 95.0 90.1 L 94.0-98.0 % Arterial Blood Carboxyhemoglobin 0.8 1.0 0.5-1.5 % Arterial Blood Methemoglobin 0.3 0.3 0.0-1.5 % Adriel Test Yes Yes Blood Gas Total Hemoglobin 13.30 14.00 12.0-16.0 g/dL Blood Gas Modality Mask - bipap Nasal cannula FiO2 % 28.0 28.0 Blood Gas EPAP 5 Blood Gas IPAP 12 Blood Gas Liter Flow 2.00 White Blood Count 11.9 H 4.4-10.8 10^3/uL Red Blood Count 3.81 L 4.0-5.20 10^6/uL Hemoglobin 12.6 12.2-16.2 g/dL Hematocrit 36.7 # 36.0-46.0 % Mean Corpuscular Volume 96.3 80.0-100.0 fL Mean Corpuscular Hemoglobin 33.0 H 28.0-32.0 pg Mean Corpuscular Hemoglobin Concent 34.3 32.0-36.0 g/dL Red Cell Distribution Width 13.1 11.8-14.3 % Platelet Count 201 140-450 10^3/uL Mean Platelet Volume 8.2 6.9-10.8 fL Neutrophils (%) (Auto) 68.9 37.0-80.0 % Lymphocytes (%) (Auto) 20.1 10.0-50.0 % Monocytes (%) (Auto) 10.5 0.0-12.0 % Eosinophils (%) (Auto) 0.3 0.0-7.0 % Basophils (%) (Auto) 0.2 0.0-2.0 % Neutrophils # (Auto) 8.2 1.6-8.6 10 ^3/uL Lymphocytes # (Auto) 2.4 0.4-5.4 10 ^3/uL Monocytes # (Auto) 1.2 0-1.3 10 ^3/uL Eosinophils # (Auto) 0 0-0.8 10 ^3/uL Basophils # (Auto) 0 0-0.2 10 ^3/uL Nucleated Red Blood Cells 0.1 % Sodium Level 140 136-145 mmol/L Potassium Level 4.2 3.5-5.1 mmol/L Chloride Level 99 98-107 mmol/L Carbon Dioxide Level 33 H 20-31 mmol/L Anion Gap 8 5-15 Blood Urea Nitrogen 34 #H 9-23 mg/dL Creatinine 1.09 H 0.550-1.02 mg/dL Glomerular Filtration Rate Calc 49 >90 mL/min BUN/Creatinine Ratio 31.2 H 10.0-20.0 Serum Glucose 155 H 74-106 mg/dL Calcium Level 8.8 8.7-10.4 mg/dL Total Bilirubin 0.3 0.2-1.0 mg/dL Aspartate Amino Transferase (AST) 180 H 13-40 U/L Alanine Aminotransferase (ALT) 107 H 7-40 U/L Alkaline Phosphatase 111 46-116 U/L Total Protein 6.7 5.7-8.2 g/dL Albumin 4.0 3.2-4.8 g/dL Test 03/25/24 11:50 03/25/24 11:12 03/25/24 09:38 03/25/24 08:48 Range/Units Troponin I High Sensitivity 131 *H 75 *H </=34 ng/L Urine Color Light-yellow Yellow Urine Clarity Clear Clear Urine pH 5.5 5.0-9.0 Urine Specific Nice 1.009 1.001-1.035 Urine Protein Negative Negative Urine Ketones Negative Negative Urine Blood Negative Negative /uL Urine Nitrite Negative Negative Urine Bilirubin Negative Negative Urine Urobilinogen Normal Negative mg/dL Urine Leukocyte Esterase Negative Negative /uL Urine RBC 1 0 - 4 /hpf Urine WBC 1 0 - 5 /hpf Urine Squamous Epithelial Cells None seen <5 /hpf Urine Bacteria None seen None Seen /hpf Urine Hyaline Casts Few 0 - 2 /lpf Urine Glucose Normal Normal mg/dL Blood Gas Specimen Type Arterial Blood Gas Sample Site Left radial Blood Gas Patient Temperature 37.0 Arterial Blood Date Drawn Arterial Blood pH 7.246 *L 7.350-7.450 Arterial Blood Partial Pressure CO2 59.8 H 32.0-45.0 mmHg Arterial Blood Partial Pressure O2 264.2 H 83.0-108.0 mmHg Arterial Blood HCO3 25.4 21.0-28.0 mmol/L Arterial Blood Oxygen Saturation 99.6 H 94.0-98.0 % Arterial Blood Base Excess -3.0 L -2.0-3.0 mmol/L Arterial Blood Oxyhemoglobin 98.2 H 94.0-98.0 % Arterial Blood Carboxyhemoglobin 0.9 0.5-1.5 % Arterial Blood Methemoglobin 0.5 0.0-1.5 % Adriel Test Yes Blood Gas Total Hemoglobin 14.40 12.0-16.0 g/dL Blood Gas Modality Mask - bipap FiO2 % 75.0 Blood Gas Pressure Support 5 Blood Gas EPAP 5 Blood Gas IPAP 10 Blood Gas Critical Value Read Back Yes Blood Gas Notified Joan galan md Blood Gas Notified Time [id number] Blood Gas Notified By Cindy stone technical assistant Test 03/25/24 08:02 Range/Units White Blood Count 12.3 H 4.4-10.8 10^3/uL Red Blood Count 4.24 4.0-5.20 10^6/uL Hemoglobin 13.8 12.2-16.2 g/dL Hematocrit 41.6 36.0-46.0 % Mean Corpuscular Volume 98.1 80.0-100.0 fL Mean Corpuscular Hemoglobin 32.4 H 28.0-32.0 pg Mean Corpuscular Hemoglobin Concent 33.1 32.0-36.0 g/dL Red Cell Distribution Width 13.4 11.8-14.3 % Platelet Count 244 140-450 10^3/uL Mean Platelet Volume 7.7 6.9-10.8 fL Neutrophils (%) (Auto) 71.3 37.0-80.0 % Lymphocytes (%) (Auto) 20.8 10.0-50.0 % Monocytes (%) (Auto) 5.1 0.0-12.0 % Eosinophils (%) (Auto) 2.4 0.0-7.0 % Basophils (%) (Auto) 0.4 0.0-2.0 % Neutrophils # (Auto) 8.8 H 1.6-8.6 10 ^3/uL Lymphocytes # (Auto) 2.6 0.4-5.4 10 ^3/uL Monocytes # (Auto) 0.6 0-1.3 10 ^3/uL Eosinophils # (Auto) 0.3 0-0.8 10 ^3/uL Basophils # (Auto) 0 0-0.2 10 ^3/uL Nucleated Red Blood Cells 0.0 % D-Dimer, Quantitative 0.97 H 0.0-0.49 mg/L FEU Sodium Level 136 136-145 mmol/L Potassium Level 4.4 3.5-5.1 mmol/L Chloride Level 103 98-107 mmol/L Carbon Dioxide Level 27 20-31 mmol/L Anion Gap 6 5-15 Blood Urea Nitrogen 9 9-23 mg/dL Creatinine 0.88 0.550-1.02 mg/dL Glomerular Filtration Rate Calc 64 >90 mL/min BUN/Creatinine Ratio 10.2 10.0-20.0 Serum Glucose 263 H 74-106 mg/dL Calcium Level 9.3 8.7-10.4 mg/dL Total Bilirubin 0.5 0.2-1.0 mg/dL Aspartate Amino Transferase (AST) 30 13-40 U/L Alanine Aminotransferase (ALT) 21 7-40 U/L Alkaline Phosphatase 83 46-116 U/L Troponin I High Sensitivity 37 *H </=34 ng/L B-Type Natriuretic Peptide 421.38 0-100 pg/mL Total Protein 7.2 5.7-8.2 g/dL Albumin 4.2 3.2-4.8 g/dL Assessment Hyponatremia due to excess H2O Aortic valve stenosis Congestive heart failure, diastolic Pulmonary edema NSTEMI Acute respiratory failure Normal kidney function Recommendations Closely monitor fluids and electrolytes Avoid nephrotoxic medications Strict I&Os Fluid restriction less than 1 L per day Start furosemide 10 milligram/hour IV piggyback Avoid rapid sodium correction Cardiology on board Noted plan for transfer to higher level of care for surgery We will continue to follow Patient seen and examined by myself. I discussed my plan of care with the patient, her daughter and the primary nurse at the bedside I would like to thank Dr. Noe for the consult, will follow Plan discussed with: Patient FARZANEH SENA MD Apr 02, 2024 13:10
[2024-04-02 14:34] LABS: Potassium 4.7 mmol/L (3.5-5.1)
[2024-04-02 14:35] LABS: Anion Gap 3 (5-15)
[2024-04-02 14:36] LABS: Calcium 9.4 mg/dL (8.7-10.4)
[2024-04-02 14:40] LABS: BUN/Creatinine Ratio 17.2 (10.0-20.0); Blood Urea Nitrogen 15 mg/dL (9-23)
[2024-04-02 14:42] LABS: Carbon Dioxide 35 mmol/L (20-31); Chloride 76 mmol/L (98-107); Glucose 157 mg/dL (74-106)
[2024-04-02] MEDS: ONDANSETRON HCL 4 MG/2 ML VIAL IV PRN (14:42)
[2024-04-02 14:44] LABS: Sodium 114 mmol/L (136-145)
[2024-04-02] MEDS: Ensure HIGH Protein Chocolate 8oz Bottle PO SCH (17:43)
[2024-04-02 18:35] LABS: Creatinine, Urine 41.79 mg/dL (30.0-125.0)
[2024-04-02 18:56] LABS: Sodium Urine < 10 mmol/L (40-220)
[2024-04-03] VITALS (104 sets, daily range): BP systolic 72–135; BP diastolic 37–101; PULSE 79–126; RESP 13–34; TEMP 96.8–98.4; O2SAT 82–100
[2024-04-03 05:18] LABS: Anion Gap 3 (5-15); Potassium 4.7 mmol/L (3.5-5.1)
[2024-04-03 05:19] LABS: Calcium 9.2 mg/dL (8.7-10.4)
[2024-04-03 05:24] LABS: BUN/Creatinine Ratio 18.6 (10.0-20.0); Blood Urea Nitrogen 16 mg/dL (9-23)
[2024-04-03 05:25] LABS: Magnesium 2.1 mg/dL (1.6-2.6)
[2024-04-03 05:31] LABS: Carbon Dioxide 35 mmol/L (20-31); Chloride 76 mmol/L (98-107); Glucose 134 mg/dL (74-106); Sodium 114 mmol/L (136-145)
--- NOTE | 2024-04-03 07:43 | DVHPN2 ---
Progress Note - Dictate Date Seen: Apr 03, 2024 Medical Necessity Reason Pt with a Central, PICC or Fol: Yes The following are medically ne: Bob Catheter Reason for bob catheter: Strict I&O vital signs Vital Sign Date Time Temp Pulse Resp B/P (MAP) Pulse Ox O2 Delivery O2 Flow Rate FiO2 04/03/24 06:45 89 24 96 04/03/24 06:01 98.4 98.4 04/03/24 06:00 Nasal Cannula* 4 36 Total Intake and Output 04/02/24 04/02/24 04/03/24 15:00 23:00 07:00 Intake Total 177.28 ml 737.98 ml 455 ml Output Total 600 ml 675 ml Balance 177.28 ml 137.98 ml -220 ml medications Current Medications Medications Dose Ordered Sig/Bijan Route Start Time Stop Time Status Last Admin Dose Admin Acetaminophen 650 mg Q6HP PRN PO 03/25/24 13:30 04/02/24 06:35 650 MG Nitroglycerin 0.4 mg Q5MINP PRN SL 03/25/24 13:30 Morphine Sulfate 2 mg Q30M PRN IV 03/25/24 13:30 03/26/24 08:00 2 MG Pantoprazole Sodium 40 mg DAILY IV 03/27/24 10:00 04/02/24 11:10 40 MG Enoxaparin Sodium 80 mg Q12HR SC 03/26/24 22:00 04/02/24 22:12 80 MG Dorzolamide HCl 1 drop BID@0700,2200 EACHEYE 03/26/24 22:00 04/03/24 06:01 1 DROP Aspirin 81 mg DAILY PO 03/27/24 10:00 04/02/24 11:10 81 MG Lactulose 30 ml DAILYPRN PRN PO 04/01/24 11:45 Amiodarone HCl 200 mg BID PO 04/02/24 10:00 04/02/24 22:12 200 MG Furosemide 100 mg/ Sodium Chloride 110 ml @ 11 mls/hr Q10H IV 04/02/24 10:00 04/03/24 02:24 11 MLS/HR Enteral Nutritional Formula 240 ml BIDWM PO 04/02/24 18:00 Ondansetron HCl 4 mg Q6HPRN PRN IV 04/02/24 13:30 04/02/24 14:42 4 MG laboratory and microbiology Laboratory Tests 04/03/24 04:48 04/02/24 04:54 Test 04/03/24 04:48 Range/Units Serum Glucose 134 H 74-106 mg/dL Assessment/Plan Patient is a 88-year-old female who presented to the hospital with shortness of breath. It seems that the patient was found by EMS with oxygen saturation of 87% at home. Later, the patient was started on CPAP and was given Lasix which improved her clinical status. It is reported that she has had more fluids and chips/mercer prior to presentation. Later on tele floor she got more short of breath and was started on BiPAP. Cardiology is involved for cardiac aspects of care. Patient is known to our practice from outside. 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 It is of note that echocardiogram of November 2023 had revealed some component of aortic stenosis. Being managed in [facility]. Overweight female. Using accessory muscles of breathing. Mucosa is pink and wet. No goiter. Long examination reveals scattered rhonchi/rales. Cardiac: Irregular, systolic murmur 3/6 in the apex/base is heard. Abdomen is soft. Bowel sound is positive. Mild hepatomegaly is observed. Extremities reveal 2+ edema. Dorsalis pedis is 2+ bilateral. Past medical history includes valvular heart disease and status post TAVR, DJD, GERD, gallstones, neuropathy and pulmonary hypertension. Echocardiogram of December 05, 2023 (performed in the office) revealed mild concentric left ventricular hypertrophy, ejection fraction 60 65%, moderate left atrial enlargement, right ventricular systolic pressure 41 mm Hg, mild TR, mild mitral annular calcification, trace PI, aortic valve replacement with up to moderate stenosis, trace aortic insufficiency. WBC: 12.3 - 11.9 - 10.4 - 7.4 - 12.1 - 10.5 D-dimer: 0.97 Creatinine: 0.88 - 1.09 - 0.67 - 0.79 - 0.68 - 0.65 - 0.65 - 0.83 - 0.79 - 0.87 - 0.86 Potassium: 4.4 - 4.2 - 3.5 - 3.7 - 3.8 - 3.6 - 3.3 - 3.9 - 5.4 - 5.2 - 4.7 - 4.7 AST/ALT: 30/21 - 180/107 - 141/35 - 34/32 - 34/32 Troponin (high sensitive): 37 - 75 - 131 - 9939 - 08856 - 49555 - 59671 BNP: 421.38 Chest x-ray reported: Lines and Tubes: None Lungs: No focal consolidation. Pleura: No effusion. No pneumothorax. Cardiomediastinal contours: Cardiomegaly Bones: No acute osseous abnormality. IMPRESSION: Cardiomegaly with chf Repeat chest x-ray revealed: IMPRESSION: 1. Mild interstitial pulmonary edema. 2. Small bilateral effusions. Repeat chest x-ray revealed: IMPRESSION: 1. Mild interstitial pulmonary edema. 2. Small bilateral effusions. Repeat chest xry revealed: IMPRESSION: 1. Mild interstitial pulmonary edema. 2. Small bilateral effusions. Repeat chest xry revealed: IMPRESSION: 1. Bilateral interstitial prominence compatible with pulmonary edema. Stable bilateral pleural effusions. EKG reveals sinus tachycardia with left bundle branch block Tele reveals sinus tachycardia with left bundle branch block, later: a-fib with RVR, then a-fib with MVR and again: afib with rvr , later: NSR Echocardiogram reported: Technically limited study secondary to poor acoustic windows. Left ventricle: Mild concentric left ventricular hypertrophy was seen. LVEF was 55-60%. Even though no gross wall motion abnormality was observed, its presence can not be ruled out and the basis of this study. Right ventricle is normal size with normal systolic function. Both atria were mildly dilated. Aortic valve: Presence of previous Bioprosthetic valve in Aortic position cannot be ruled out. It was mild insufficiency. Severe stenosis was observed (peak/mean pressure gradient across the aortic valve was 92/65 mm Hg and calculated aortic valve area was 0.6 cm). Mitral valve: Mild mitral regurgitation was seen. Mild mitral annular calcification was observed. There was mild tricuspid regurgitation. Pulmonary valve revealed mild insufficiency. Right ventricular systolic pressure was assessed around 62 mm Hg. There was no pericardial effusion. Consider STEVE for further evaluation of aortic valve. Transesophageal echocardiogram was performed: Revealed significant bioprosthetic aortic valve stenosis, peak/mean pressure gradient across aortic valve was 115/72 mm Hg and calculated aortic valve area was 0.5 centimeter Left heart catheterization was performed: Revealed nonobstructive coronary artery disease Patient is a 88-year-old female presented with shortness of breath. She was found to have acute heart failure. Does have history of valvular heart disease an echocardiogram is in favor of significant aortic stenosis (valve restenosis?). Does have component of pulmonary hypertension which can be considered type 2. He is found to have mildly abnormal D-dimer. She did have episode of atrial fibrillation with RVR. Later, she leaked troponin questioning non-STEMI. She did have STEVE which confirmed significant bioprosthetic aortic valve stenosis. She did have left heart catheterization which did not reveal any significant coronary disease. Abnormal troponin is considered to reflects type 2 physiology at this point. Referral to higher level of care for management of significant bioprosthetic aortic valve stenosis is suggested. Severe bioprosthetic aortic valve stenosis New onset atrial fibrillation Atrial fibrillation with RVR Status post STEVE Status post left heart catheterization Short of breath Acute respiratory failure Acute heart failure, diastolic Valvular heart disease s/p TAVR COPD exacerbation Obesity Abnormal D-dimer Cardiac suggestion for management: Manage in [place] Respiratory support, BiPAP/CPAP Lasix Follow-up electrolytes and kidney function test and correct abnormalities. Keep potassium above 4 and magnesium above 2 Change IV amiodarone to oral Full anticoagulation (started on Lovenox, therapeutic dose), recognizing atrial fibrillation with high CHADS-VASc score Aspirin: 81 mg daily Needs transferred to high level of care for management of bioprosthetic aortic valve stenosis. [facility] has accepted patient. Please send a copy of imaging/CD of cardiac catheterization/steve/echocardiogram with reports to the higher level of care A total of 55 minutes was spent reviewing the patient record, examining the patient, making a diagnostic and therapeutic plan, discussing this plan with medical personnel, following up on diagnostic studies and following the patient for clinical stability excluding any and all procedures. At least 50% of this time was spent in direct, [id number] contact. Thank you for allowing me to participate in this patient's care. Further recommendations will depend on patient's clinical course. Please do not hesitate to contact me if you have any questions or concerns. This medical document was created using electronic medical record system with [employer] dictation system. Although this document has been carefully reviewed, there may still be some phonetic and typographical errors. These areas are purely typographical due to the imperfection of the software programs, and do not reflect any compromise in the patient's medical care. Dietary Evaluation Review Comments: Continue current plan of care Expected Outcomes/Goals: F/U in 3-5 days Plan discussed with: Patient, Other (nurse) JAZLYN LR MD Apr 03, 2024 07:43
--- NOTE | 2024-04-03 09:24 | DVHPN2 ---
Progress Note Date Seen: Apr 03, 2024 Medical Necessity Reason Pt with a Central, PICC or Fol: Yes The following are medically ne: Bob Catheter Reason for bob catheter: Strict I&O Subjective Review of Systems: RESPIRATORY:Abnormal Other Systems: Patient seen and examined by myself today in follow-up Objective vital signs Vital Sign Date Time Temp Pulse Resp B/P (MAP) Pulse Ox O2 Delivery O2 Flow Rate FiO2 04/03/24 06:45 89 24 96 04/03/24 06:01 98.4 98.4 04/03/24 06:00 Nasal Cannula* 4 36 Total Intake and Output 04/02/24 04/02/24 04/03/24 15:00 23:00 07:00 Intake Total 177.28 ml 737.98 ml 455 ml Output Total 600 ml 675 ml Balance 177.28 ml 137.98 ml -220 ml medications Current Medications Medications Dose Ordered Sig/Bijan Route Start Time Stop Time Status Last Admin Dose Admin Acetaminophen 650 mg Q6HP PRN PO 03/25/24 13:30 04/03/24 09:12 650 MG Nitroglycerin 0.4 mg Q5MINP PRN SL 03/25/24 13:30 Morphine Sulfate 2 mg Q30M PRN IV 03/25/24 13:30 03/26/24 08:00 2 MG Pantoprazole Sodium 40 mg DAILY IV 03/27/24 10:00 04/03/24 08:55 40 MG Enoxaparin Sodium 80 mg Q12HR SC 03/26/24 22:00 04/03/24 08:56 80 MG Dorzolamide HCl 1 drop BID@0700,2200 EACHEYE 03/26/24 22:00 04/03/24 06:01 1 DROP Aspirin 81 mg DAILY PO 03/27/24 10:00 04/03/24 08:55 81 MG Lactulose 30 ml DAILYPRN PRN PO 04/01/24 11:45 Amiodarone HCl 200 mg BID PO 04/02/24 10:00 04/03/24 08:55 200 MG Furosemide 100 mg/ Sodium Chloride 110 ml @ 11 mls/hr Q10H IV 04/02/24 10:00 04/03/24 02:24 11 MLS/HR Enteral Nutritional Formula 240 ml BIDWM PO 04/02/24 18:00 Ondansetron HCl 4 mg Q6HPRN PRN IV 04/02/24 13:30 04/02/24 14:42 4 MG Dopamine HCl/ Dextrose 250 ml @ 2.434 mls/ hr Q24H IV 04/03/24 09:15 UNV Examination: LUNGS:Normal, CVS:Normal, MSK:Normal laboratory and microbiology Laboratory Tests 04/03/24 04:48 04/02/24 04:54 Test 04/03/24 04:48 Range/Units Serum Glucose 134 H 74-106 mg/dL Problem List/Assessment/Plan Problem List/Assessment/Plan Hyponatremia due to excess H2O Aortic valve stenosis Acute decompensated diastolic Congestive heart failure Pulmonary edema NSTEMI Acute respiratory failure Normal kidney function Recommendations Kidney function remained within normal limit Add low-dose dopamine drain Strict I&Os Fluid restriction less than 1 L per day Continue furosemide 10 milligram/hour IV piggyback Avoid rapid sodium correction Cardiology on board Noted plan for transfer to higher level of care for surgery We will continue to follow Plan discussed with: Patient, Daughter My Orders My Orders Orders - FARZANEH SENA MD Procedure Category Date Status Time Sodium Chl 0.9% PHA 04/02/24 In Process (So... W/Furosemide 10:00 Insert Midline ORDERS 04/02/24 Transmitted 11:36 Dopamine 1600mcg/Ml PHA 04/03/24 Logged D5W 09:15 Dietary Evaluation Review Comments: Continue current plan of care Expected Outcomes/Goals: F/U in 3-5 days FARZANEH SENA MD Apr 03, 2024 09:24
[2024-04-03] MEDS: DOPamine 1600MCG/ML D5W 250 ML IV SCH (10:09)
[2024-04-03] MEDS: NOREPINEPHRINE 8 MG/250ML KIT 250 ML IV SCH (11:42)
[2024-04-03] MEDS: FUROSEMIDE INJECTION 100 MG in SODIUM CHL 0.9% 100 ML IV SCH (11:43)
[2024-04-03 12:18] LABS: Potassium 4.8 mmol/L (3.5-5.1)
[2024-04-03 12:19] LABS: Anion Gap 0 (5-15); Calcium 9.2 mg/dL (8.7-10.4)
[2024-04-03 12:24] LABS: BUN/Creatinine Ratio 19.1 (10.0-20.0); Blood Urea Nitrogen 17 mg/dL (9-23); Carbon Dioxide 37 mmol/L (20-31); Chloride 77 mmol/L (98-107); Glucose 132 mg/dL (74-106)
[2024-04-03 12:26] LABS: Sodium 114 mmol/L (136-145)
[2024-04-03 12:30] LABS: INR 1.05 (0.9-1.15); Prothrombin Time 11.1 sec (9.3-11.8)
[2024-04-03] MEDS: AMIODARONE 360mg/200mL PREMIX 200 ML IV ONE (15:30)
[2024-04-03] MEDS: PHENYLEPHRINE IV 250 ML IV SCH (15:30)
[2024-04-03] MEDS: LIDOCAINE 1% (LOCAL ANESTH.) PF 5ml SDV ID ONE (16:39)
[2024-04-03] MEDS: AMIODARONE 450mg/250ml AE 250 ML IV ONE (17:15)
--- NOTE | 2024-04-03 17:29 | DVH ---
CHEST RADIOGRAPH Indication: PICC Tip verifications Technique: Single frontal view of the chest was obtained COMPARISON: XY CHEST XRAY 1 VIEW on DOS: 04/02/24, XY CHEST PORTABLE on DOS: 03/29/24, XY CHEST PORTABL E on DOS: 03/27/24, XY CHEST XRAY 1 VIEW on DOS: 03/26/24, XY CHEST PORTABLE on DOS: 03/25/24 FINDINGS: Lines and Tubes: Left PICC in satisfactory position overlying the superior vena cava. Lungs: Multifocal airspace disease. Pleura: Small bilateral pleural effusions, [id number]. No pneumothorax. Cardiomediastinal contours: Unremarkable Bones: Unremarkable IMPRESSION: Left PICC in satisfactory position.
[2024-04-03] MEDS ORDERED: SODIUM CHL 3% 500 ML IV ONE (17:45)
[2024-04-03] MEDS: BUMETANIDE INJECTION 12.5 MG in GIVE UN-DILUTED 0 ML IV SCH (18:43)
[2024-04-03] MEDS: SODIUM CHL 3% 500 ML IV SCH (18:54)
[2024-04-03] MEDS: SODIUM CHLOR 0.9% PF (SALINE LOCK) 10ML VIAL/SYR IV SCH (21:24)
[2024-04-03] MEDS: AMIODARONE 360mg/200mL PREMIX 200 ML IV SCH (23:47)
[2024-04-04] VITALS (87 sets, daily range): BP systolic 83–123; BP diastolic 24–87; PULSE 87–110; RESP 15–31; TEMP 97.2–98.3; O2SAT 85–100
[2024-04-04] MEDS: INFLUENZA TRIVALENT 2024-2025 0.5 ML INJ IM ONE (07:55)
--- NOTE | 2024-04-04 07:55 | DVHPN2 ---
Progress Note - Dictate Date Seen: Apr 04, 2024 Medical Necessity Reason Pt with a Central, PICC or Fol: Yes The following are medically ne: Bob Catheter Reason for bob catheter: Strict I&O vital signs Vital Sign Date Time Temp Pulse Resp B/P (MAP) Pulse Ox O2 Delivery O2 Flow Rate FiO2 04/04/24 07:00 100 25 109/62 (78) 90 04/04/24 06:48 Facial BiPAP Mask 40 04/04/24 04:00 98.0 98.0 04/03/24 09:14 4.0 Total Intake and Output 04/03/24 04/03/24 04/04/24 15:00 23:00 07:00 Intake Total 147.00 ml 1203.902 ml 888.89 ml Output Total 600 ml 625 ml Balance 147.00 ml 603.902 ml 263.89 ml medications Current Medications Medications Dose Ordered Sig/Bijan Route Start Time Stop Time Status Last Admin Dose Admin Acetaminophen 650 mg Q6HP PRN PO 03/25/24 13:30 04/03/24 09:12 650 MG Nitroglycerin 0.4 mg Q5MINP PRN SL 03/25/24 13:30 Pantoprazole Sodium 40 mg DAILY IV 03/27/24 10:00 04/03/24 08:55 40 MG Enoxaparin Sodium 80 mg Q12HR SC 03/26/24 22:00 04/03/24 21:24 80 MG Dorzolamide HCl 1 drop BID@0700,2200 EACHEYE 03/26/24 22:00 04/04/24 05:02 1 DROP Aspirin 81 mg DAILY PO 03/27/24 10:00 04/03/24 08:55 81 MG Lactulose 30 ml DAILYPRN PRN PO 04/01/24 11:45 Amiodarone HCl 200 mg BID PO 04/02/24 10:00 04/03/24 21:24 200 MG Enteral Nutritional Formula 240 ml BIDWM PO 04/02/24 18:00 04/03/24 14:50 240 ML Ondansetron HCl 4 mg Q6HPRN PRN IV 04/02/24 13:30 04/02/24 14:42 4 MG Dopamine HCl/ Dextrose 250 ml @ 2.434 mls/ hr Q24H IV 04/03/24 09:15 04/03/24 10:09 2.434 MLS/HR Norepinephrine Bitartrate 250 ml @ 3.75 mls/hr Q24H IV 04/03/24 11:15 04/03/24 11:42 3.75 MLS/HR Phenylephrine HCl 250 ml @ 30 mls/hr Q8H20M IV 04/03/24 15:30 04/04/24 05:12 105 MLS/HR Sodium Chloride 10 ml QSHIFT@10,22 IV 04/03/24 22:00 04/03/24 21:24 10 ML Bumetanide 12.5 mg/Miscellaneous 50 ml @ 2 mls/hr Q24H IV 04/03/24 17:45 04/03/24 18:43 2 MLS/HR laboratory and microbiology Laboratory Tests 04/03/24 11:53 04/02/24 04:54 Test 04/03/24 11:53 Range/Units Serum Glucose 132 H 74-106 mg/dL Assessment/Plan Patient is a 88-year-old female who presented to the hospital with shortness of breath. It seems that the patient was found by EMS with oxygen saturation of 87% at home. Later, the patient was started on CPAP and was given Lasix which improved her clinical status. It is reported that she has had more fluids and chips/mercer prior to presentation. Later on tele floor she got more short of breath and was started on BiPAP. Cardiology is involved for cardiac aspects of care. Patient is known to our practice from outside. 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 It is of note that echocardiogram of November 2023 had revealed some component of aortic stenosis. Being managed in [place]. Overweight female. Using accessory muscles of breathing. Mucosa is pink and wet. No goiter. Long examination reveals scattered rhonchi/rales. Cardiac: Irregular, systolic murmur 3/6 in the apex/base is heard. Abdomen is soft. Bowel sound is positive. Mild hepatomegaly is observed. Extremities reveal 2+ edema. Dorsalis pedis is 2+ bilateral. Past medical history includes valvular heart disease and status post TAVR, DJD, GERD, gallstones, neuropathy and pulmonary hypertension. Echocardiogram of December 05, 2023 (performed in the office) revealed mild concentric left ventricular hypertrophy, ejection fraction 60 65%, moderate left atrial enlargement, right ventricular systolic pressure 41 mm Hg, mild TR, mild mitral annular calcification, trace PI, aortic valve replacement with up to moderate stenosis, trace aortic insufficiency. WBC: 12.3 - 11.9 - 10.4 - 7.4 - 12.1 - 10.5 D-dimer: 0.97 Creatinine: 0.88 - 1.09 - 0.67 - 0.79 - 0.68 - 0.65 - 0.65 - 0.83 - 0.79 - 0.87 - 0.86 0.89 Potassium: 4.4 - 4.2 - 3.5 - 3.7 - 3.8 - 3.6 - 3.3 - 3.9 - 5.4 - 5.2 - 4.7 - 4.7 - 4.7 Na: 136 - 140 - 132 - 133 - 131 - 127 - 124 - 114 - 115 - 115 - 114 - 114 - 114 AST/ALT: 30/ - 180/107 - 141/35 - 34/32 - 34/32 Troponin (high sensitive): 37 - 75 - 131 - 9939 - 07498 - 92199 - 73117 BNP: 421.38 Chest x-ray reported: Lines and Tubes: None Lungs: No focal consolidation. Pleura: No effusion. No pneumothorax. Cardiomediastinal contours: Cardiomegaly Bones: No acute osseous abnormality. IMPRESSION: Cardiomegaly with chf Repeat chest x-ray revealed: IMPRESSION: 1. Mild interstitial pulmonary edema. 2. Small bilateral effusions. Repeat chest x-ray revealed: IMPRESSION: 1. Mild interstitial pulmonary edema. 2. Small bilateral effusions. Repeat chest xry revealed: IMPRESSION: 1. Mild interstitial pulmonary edema. 2. Small bilateral effusions. Repeat chest xry revealed: IMPRESSION: 1. Bilateral interstitial prominence compatible with pulmonary edema. Stable bilateral pleural effusions. Repeat chest xry revealed: Lines and Tubes: Left PICC in satisfactory position overlying the superior vena cava. Lungs: Multifocal airspace disease. Pleura: Small bilateral pleural effusions, [id number]-right. No pneumothorax. Cardiomediastinal contours: Unremarkable Bones: Unremarkable IMPRESSION: Left PICC in satisfactory position. EKG reveals sinus tachycardia with left bundle branch block Tele reveals sinus tachycardia with left bundle branch block, later: a-fib with RVR, then a-fib with MVR and again: afib with rvr , later: NSR Echocardiogram reported: Technically limited study secondary to poor acoustic windows. Left ventricle: Mild concentric left ventricular hypertrophy was seen. LVEF was 55-60%. Even though no gross wall motion abnormality was observed, its presence can not be ruled out and the basis of this study. Right ventricle is normal size with normal systolic function. Both atria were mildly dilated. Aortic valve: Presence of previous Bioprosthetic valve in Aortic position cannot be ruled out. It was mild insufficiency. Severe stenosis was observed (peak/mean pressure gradient across the aortic valve was 92/65 mm Hg and calculated aortic valve area was 0.6 cm). Mitral valve: Mild mitral regurgitation was seen. Mild mitral annular calcification was observed. There was mild tricuspid regurgitation. Pulmonary valve revealed mild insufficiency. Right ventricular systolic pressure was assessed around 62 mm Hg. There was no pericardial effusion. Consider STEVE for further evaluation of aortic valve. Transesophageal echocardiogram was performed: Revealed significant bioprosthetic aortic valve stenosis, peak/mean pressure gradient across aortic valve was 115/72 mm Hg and calculated aortic valve area was 0.5 centimeter Left heart catheterization was performed: Revealed nonobstructive coronary artery disease Patient is a 88-year-old female presented with shortness of breath. She was found to have acute heart failure. Does have history of valvular heart disease an echocardiogram is in favor of significant aortic stenosis (valve restenosis?). Does have component of pulmonary hypertension which can be considered type 2. He is found to have mildly abnormal D-dimer. She did have episode of atrial fibrillation with RVR. Later, she leaked troponin questioning non-STEMI. She did have STEVE which confirmed significant bioprosthetic aortic valve stenosis. She did have left heart catheterization which did not reveal any significant coronary disease. Abnormal troponin is considered to reflects type 2 physiology at this point. Referral to higher level of care for management of significant bioprosthetic aortic valve stenosis is suggested. Severe bioprosthetic aortic valve stenosis New onset atrial fibrillation Atrial fibrillation with RVR Status post STEEV Status post left heart catheterization Short of breath Acute respiratory failure Acute heart failure, diastolic Valvular heart disease s/p TAVR COPD exacerbation Obesity Abnormal D-dimer Hyponatremia Cardiac suggestion for management: Manage in [place] Respiratory support, BiPAP/CPAP Diuresis Follow-up electrolytes and kidney function test and correct abnormalities. Keep potassium above 4 and magnesium above 2 On Amiodarone Full anticoagulation (started on Lovenox, therapeutic dose), recognizing atrial fibrillation with high CHADS-VASc score Aspirin: 81 mg daily Nephrology follow up for hyponatremia Needs transferred to high level of care for management of bioprosthetic aortic valve stenosis. [facility] has accepted patient. Please send a copy of imaging/CD of cardiac catheterization/steve/echocardiogram with reports to the higher level of care A total of 55 minutes was spent reviewing the patient record, examining the patient, making a diagnostic and therapeutic plan, discussing this plan with medical personnel, following up on diagnostic studies and following the patient for clinical stability excluding any and all procedures. At least 50% of this time was spent in direct, [id number] contact. Thank you for allowing me to participate in this patient's care. Further recommendations will depend on patient's clinical course. Please do not hesitate to contact me if you have any questions or concerns. This medical document was created using electronic medical record system with [employer] computerized dictation system. Although this document has been carefully reviewed, there may still be some phonetic and typographical errors. These areas are purely typographical due to the imperfection of the software programs, and do not reflect any compromise in the patient's medical care. Dietary Evaluation Review Comments: Continue current plan of care Expected Outcomes/Goals: F/U in 3-5 days Plan discussed with: Patient, Other (nurse) JAZLYN LR MD Apr 04, 2024 07:55
[2024-04-04 08:59] LABS: Potassium 4.5 mmol/L (3.5-5.1)
[2024-04-04 09:00] LABS: Anion Gap 3 (5-15); Carbon Dioxide 28 mmol/L (20-31)
[2024-04-04 09:04] LABS: Basophils # (auto) 0 10 ^3/uL (0-0.2); Basophils % (auto) 0.2 % (0.0-2.0); Eosinophils # (auto) 0 10 ^3/uL (0-0.8); Eosinophils % (auto) 0.2 % (0.0-7.0); Hematocrit 26.4 % (36.0-46.0); Hemoglobin 9.4 g/dL (12.2-16.2); Lymphocytes # (auto) 0.9 10 ^3/uL (0.4-5.4); Lymphocytes % (auto) 11.1 % (10.0-50.0); Mean Corpuscular Hemoglobin 33.4 pg (28.0-32.0); Mean Corpuscular Hgb Conc. 35.5 g/dL (32.0-36.0); Mean Corpuscular Volume 94.1 fL (80.0-100.0); Monocytes # (auto) 1.2 10 ^3/uL (0-1.3); Monocytes % (auto) 14.3 % (0.0-12.0); Neutrophils # (auto) 6.4 10 ^3/uL (1.6-8.6); Neutrophils % (auto) 74.2 % (37.0-80.0); Nucleated Red Blood Cells % 0.2 %; Platelet Count (auto) 272 10^3/uL (140-450); Red Blood Cells 2.81 10^6/uL (4.0-5.20); Red Cell Distribution Width 13.9 % (11.8-14.3); White Blood Cell 8.6 10^3/uL (4.4-10.8)
[2024-04-04 09:05] LABS: BUN/Creatinine Ratio 18.3 (10.0-20.0); Blood Urea Nitrogen 13 mg/dL (9-23)
[2024-04-04 09:06] LABS: Calcium 6.8 mg/dL (8.7-10.4); Chloride 87 mmol/L (98-107); Glucose 330 mg/dL (74-106)
[2024-04-04 09:07] LABS: Sodium 118 mmol/L (136-145)
[2024-04-04] MEDS: SODIUM CHL 3% 500 ML IV ONE (09:30)
[2024-04-04 10:01] LABS: Phosphorus 3.2 mg/dL (2.4-5.1)
[2024-04-04 10:11] LABS: Magnesium 1.5 mg/dL (1.6-2.6)
--- NOTE | 2024-04-04 10:32 | DVH ---
CHEST RADIOGRAPH Indication: RECHECK AIRSPACE DISEASE Technique: Single frontal view of the chest was obtained Comparison: XY CHEST PORTABLE on DOS: 04/03/24, XY CHEST XRAY 1 VIEW on DOS: 04/02/24, XY CHEST PORTABL E on DOS: 03/29/24, XY CHEST PORTABLE on DOS: 03/27/24, XY CHEST XRAY 1 VIEW on DOS: 03/26/24, XY CHEST PORTABLE on DOS: 04/03/24 FINDINGS: Lines and Tubes: Left PICC in satisfactory position overlying the superior vena cava. Lungs: Multifocal airspace disease. Pleura: Small bilateral pleural effusions, [id number]-right. No pneumothorax. Cardiomediastinal contours: Unremarkable Bones: Unremarkable IMPRESSION: Left PICC in satisfactory position.
--- NOTE | 2024-04-04 11:07 | DVHPN2 ---
Progress Note Date Seen: Apr 04, 2024 Medical Necessity Reason Pt with a Central, PICC or Fol: Yes The following are medically ne: Bob Catheter Reason for bob catheter: Strict I&O Subjective Patient reports: No new complaints Review of Systems: HEENT:Normal, CVS:Normal, RESPIRATORY:Normal, GI:Normal, :Normal, MSK:Normal, NEURO:Normal Objective vital signs Vital Sign Date Time Temp Pulse Resp B/P (MAP) Pulse Ox O2 Delivery O2 Flow Rate FiO2 04/04/24 09:48 88/47 04/04/24 09:30 104 28 97 04/04/24 08:50 Facial BiPAP Mask 40 04/04/24 08:00 97.2 97.2 04/03/24 09:14 4.0 Total Intake and Output 04/03/24 04/03/24 04/04/24 15:00 23:00 07:00 Intake Total 147.00 ml 1203.902 ml 888.89 ml Output Total 600 ml 625 ml Balance 147.00 ml 603.902 ml 263.89 ml medications Current Medications Medications Dose Ordered Sig/Bijan Route Start Time Stop Time Status Last Admin Dose Admin Acetaminophen 650 mg Q6HP PRN PO 03/25/24 13:30 04/03/24 09:12 650 MG Nitroglycerin 0.4 mg Q5MINP PRN SL 03/25/24 13:30 Pantoprazole Sodium 40 mg DAILY IV 03/27/24 10:00 04/04/24 10:22 40 MG Enoxaparin Sodium 80 mg Q12HR SC 03/26/24 22:00 04/04/24 10:22 80 MG Dorzolamide HCl 1 drop BID@0700,2200 EACHEYE 03/26/24 22:00 04/04/24 05:02 1 DROP Aspirin 81 mg DAILY PO 03/27/24 10:00 04/04/24 10:22 81 MG Lactulose 30 ml DAILYPRN PRN PO 04/01/24 11:45 Amiodarone HCl 200 mg BID PO 04/02/24 10:00 04/04/24 10:22 200 MG Enteral Nutritional Formula 240 ml BIDWM PO 04/02/24 18:00 04/03/24 14:50 240 ML Ondansetron HCl 4 mg Q6HPRN PRN IV 04/02/24 13:30 04/02/24 14:42 4 MG Dopamine HCl/ Dextrose 250 ml @ 2.434 mls/ hr Q24H IV 04/03/24 09:15 04/03/24 10:09 2.434 MLS/HR Norepinephrine Bitartrate 250 ml @ 3.75 mls/hr Q24H IV 04/03/24 11:15 04/03/24 11:42 3.75 MLS/HR Sodium Chloride 10 ml QSHIFT@10,22 IV 04/03/24 22:00 04/04/24 10:22 10 ML Bumetanide 12.5 mg/Miscellaneous 50 ml @ 2 mls/hr Q24H IV 04/03/24 17:45 04/04/24 08:00 2 MLS/HR Magnesium Sulfate/ Dextrose 100 ml @ 100 mls/hr Q1HR IV 04/04/24 12:00 04/04/24 13:59 UNV Examination: GENERAL:Normal, HEENT:Normal, NECK:Normal, LUNGS:Normal, LUNGS:Abnormal (on oxygen, rales), CVS:Normal, ABDOMEN:Normal, MSK:Normal, SKIN:Normal, NEURO:Normal, :Normal laboratory and microbiology Laboratory Tests 04/04/24 08:36 Test 04/04/24 08:36 Range/Units Serum Glucose 330 H 74-106 mg/dL Problem List/Assessment/Plan Problem List/Assessment/Plan #1 acute resp failure: intermittently on bipap, abg- now on oxygen #2 acute systolic/diastolic heart failure: bumex drip #3 s/p tavr: echo #4 hyperlipidemia #5 htn #6 nstemi: c angio-negative #7 severe #8 a fib: on amiodarone, lovenox #9 severe hyponatremia-improved: monitor await transfer to [facility] advance care planning- full code- time spent 21 mins Plan discussed with: Patient, Daughter My Orders My Orders Orders - ERNESTO BANEGAS MD Procedure Category Date Status Time * Picc Line Consult CONS 04/03/24 Transmitted 11:25 Nursing Protocol Picc BONNIE 04/03/24 In Process 17:04 Change Dressing Prn BONNIE 04/03/24 In Process 17:04 Sodium Chloride Lock PHA 04/03/24 In Process (Saline Lock Ns) 22:00 Do Not Use Picc For [facility] 04/03/24 In Process Blood Cult 17:04 May Draw Blood From [facility] 04/03/24 In Process Picc 17:04 Chest Portable XY 04/03/24 Resulted 17:04 Ok To Use Picc [facility] 04/03/24 In Process 17:04 Change Picc Dressing [facility] 04/03/24 In Process Q7 Days 17:04 Us Guided Vascular US 04/03/24 Logged Access 17:04 Magnesium Taqueria PHA 04/04/24 Transmitted 12:00 Basic Metabolic Panel LAB 04/05/24 Verified 06:00 Magnesium LAB 04/05/24 Verified 05:00 Complete Blood Count LAB 04/05/24 Verified 06:00 Dietary Evaluation Review Comments: Continue current plan of care Expected Outcomes/Goals: F/U in 3-5 days Critical Care Time (mins): 39 (critical care time 39 mins) Date of Service: Apr 04, 2024 Billing Provider: ERNESTO BANEGAS MD Common Visit Codes: [id number] CARE 30-74 MIN ERNESTO BANEGAS MD Apr 04, 2024 11:07
--- NOTE | 2024-04-04 11:55 | DVHPN2 ---
Progress Note Date Seen: Apr 04, 2024 Medical Necessity Reason Pt with a Central, PICC or Fol: Yes The following are medically ne: Bob Catheter Reason for bob catheter: Strict I&O Subjective Review of Systems: RESPIRATORY:Abnormal Other Systems: Patient seen and examined by myself today in follow-up Objective vital signs Vital Sign Date Time Temp Pulse Resp B/P (MAP) Pulse Ox O2 Delivery O2 Flow Rate FiO2 04/04/24 09:48 88/47 04/04/24 09:30 104 28 97 04/04/24 08:50 Facial BiPAP Mask 40 04/04/24 08:00 97.2 97.2 04/03/24 09:14 4.0 Total Intake and Output 04/03/24 04/03/24 04/04/24 15:00 23:00 07:00 Intake Total 147.00 ml 1203.902 ml 888.89 ml Output Total 600 ml 625 ml Balance 147.00 ml 603.902 ml 263.89 ml medications Current Medications Medications Dose Ordered Sig/Bijan Route Start Time Stop Time Status Last Admin Dose Admin Acetaminophen 650 mg Q6HP PRN PO 03/25/24 13:30 04/03/24 09:12 650 MG Nitroglycerin 0.4 mg Q5MINP PRN SL 03/25/24 13:30 Pantoprazole Sodium 40 mg DAILY IV 03/27/24 10:00 04/04/24 10:22 40 MG Enoxaparin Sodium 80 mg Q12HR SC 03/26/24 22:00 04/04/24 10:22 80 MG Dorzolamide HCl 1 drop BID@0700,2200 EACHEYE 03/26/24 22:00 04/04/24 05:02 1 DROP Aspirin 81 mg DAILY PO 03/27/24 10:00 04/04/24 10:22 81 MG Lactulose 30 ml DAILYPRN PRN PO 04/01/24 11:45 Amiodarone HCl 200 mg BID PO 04/02/24 10:00 04/04/24 10:22 200 MG Enteral Nutritional Formula 240 ml BIDWM PO 04/02/24 18:00 04/03/24 14:50 240 ML Ondansetron HCl 4 mg Q6HPRN PRN IV 04/02/24 13:30 04/02/24 14:42 4 MG Sodium Chloride 10 ml QSHIFT@10,22 IV 04/03/24 22:00 04/04/24 10:22 10 ML Bumetanide 12.5 mg/Miscellaneous 50 ml @ 2 mls/hr Q24H IV 04/03/24 17:45 04/04/24 08:00 2 MLS/HR Magnesium Sulfate/ Dextrose 100 ml @ 100 mls/hr Q1HR IV 04/04/24 12:00 04/04/24 13:59 Examination: LUNGS:Normal, CVS:Normal, MSK:Normal laboratory and microbiology Laboratory Tests 04/04/24 08:36 Test 04/04/24 08:36 Range/Units Serum Glucose 330 H 74-106 mg/dL Problem List/Assessment/Plan Problem List/Assessment/Plan sHyponatremia due to excess H2O Acute respiratory failure on BiPAP Aortic valve stenosis, severe Acute decompensated diastolic Congestive heart failure Pulmonary edema NSTEMI Acute respiratory failure Normal kidney function Recommendations Serum sodium slowly and appropriately correcting Kidney function remained within normal limit 3% sodium chloride 20 cc per hour for 8 hours today Repeat sodium in 4 hours Patient is still getting more than 2 L of fluid per day Recommended strict fluid restriction less than 1 L per 24 hour Strict I&Os Bumex half a mg per hour IV piggyback Avoid rapid sodium correction IV pressors for blood pressure support Cardiology on board Noted plan for transfer to higher level of care for surgery We will continue to follow Plan discussed with: Patient, Daughter My Orders My Orders Orders - FARZANEH SENA MD Procedure Category Date Status Time Give Un-Diluted PHA 04/03/24 In Process (Gi... W/Bumetanide 17:45 Chest Portable XY 04/04/24 Resulted 09:27 Sodium Chl 3% PHA 04/04/24 In Process 09:30 Sodium Phosphates PHA 04/04/24 In Process 11:00 Basic Metabolic Panel LAB 04/04/24 Logged 14:00 Dietary Evaluation Review Comments: Continue current plan of care Expected Outcomes/Goals: F/U in 3-5 days FARZANEH SENA MD Apr 04, 2024 11:55
[2024-04-04] MEDS: MAGNESIUM SULFATE 1GM/100ML 100 ML IV SCH (12:01)
[2024-04-04] MEDS: PHENYLEPHRINE INJ 80 MG in SODIUM CHL 0.9% 242 ML IV SCH ×2 (12:33→12:45)
[2024-04-04 15:12] LABS: Anion Gap 7 (5-15); Carbon Dioxide 30 mmol/L (20-31)
[2024-04-04 15:13] LABS: Calcium 8.9 mg/dL (8.7-10.4)
[2024-04-04 15:18] LABS: BUN/Creatinine Ratio 20.2 (10.0-20.0); Blood Urea Nitrogen 20 mg/dL (9-23)
[2024-04-04 15:23] LABS: Chloride 83 mmol/L (98-107); Glucose 174 mg/dL (74-106); Potassium 5.1 mmol/L (3.5-5.1); Sodium 120 mmol/L (136-145)
[2024-04-04] MEDS: SODIUM PHOSPHATES 40 MEQ in D5W 5% 250 ML IV ONE (15:37)
[2024-04-04] MEDS: NOREPINEPHRINE BITARTRATE 32 MG in SODIUM CHL 0.9% 218 ML IV SCH (16:35)
== END 2024-04-04 20:30 | disposition short-term general hospital (02) | DRG 280 ==
LOC: EDBD 07:27 → ER 07:27 → TELE 13:20 → TELE-WESTW 18:52 → DOU IN ICU 04-01 17:20
PROVIDERS: ADMIT Internal Medicine; ATTEND Internal Medicine
PROC: 5A09357 Assistance with Respiratory Ventilation, Less than 24 Consecutive Hours, Continuous Positive Airway Pressure (ICD-10-PCS; 2024-03-25)
PROC: 5A09357 Assistance with Respiratory Ventilation, Less than 24 Consecutive Hours, Continuous Positive Airway Pressure (ICD-10-PCS; 2024-03-26)
PROC: B24BZZ4 Ultrasonography of Heart with Aorta, Transesophageal (ICD-10-PCS; principal; 2024-03-27)
PROC: B211YZZ Fluoroscopy of Multiple Coronary Arteries using Other Contrast (ICD-10-PCS; 2024-03-27)
PROC: 5A09357 Assistance with Respiratory Ventilation, Less than 24 Consecutive Hours, Continuous Positive Airway Pressure (ICD-10-PCS; 2024-03-28)
PROC: 5A09357 Assistance with Respiratory Ventilation, Less than 24 Consecutive Hours, Continuous Positive Airway Pressure (ICD-10-PCS; 2024-03-29)
PROC: 5A09357 Assistance with Respiratory Ventilation, Less than 24 Consecutive Hours, Continuous Positive Airway Pressure (ICD-10-PCS; 2024-03-30)
PROC: 5A09357 Assistance with Respiratory Ventilation, Less than 24 Consecutive Hours, Continuous Positive Airway Pressure (ICD-10-PCS; 2024-03-31)
PROC: 5A09357 Assistance with Respiratory Ventilation, Less than 24 Consecutive Hours, Continuous Positive Airway Pressure (ICD-10-PCS; 2024-04-01)
PROC: 05HC33Z Insertion of Infusion Device into Left Basilic Vein, Percutaneous Approach (ICD-10-PCS; 2024-04-02)
PROC: B54NZZA Ultrasonography of Left Upper Extremity Veins, Guidance (ICD-10-PCS; 2024-04-02)
PROC: 02HV33Z Insertion of Infusion Device into Superior Vena Cava, Percutaneous Approach (ICD-10-PCS; 2024-04-03)
PROC: B548ZZA Ultrasonography of Superior Vena Cava, Guidance (ICD-10-PCS; 2024-04-03)
PROC: 5A09457 Assistance with Respiratory Ventilation, 24-96 Consecutive Hours, Continuous Positive Airway Pressure (ICD-10-PCS; 2024-04-03)
DX: I21.4 Non-ST elevation (NSTEMI) myocardial infarction (principal); I50.43 Acute on chronic combined systolic (congestive) and diastolic (congestive) heart failure; J96.01 Acute respiratory failure with hypoxia; J96.02 Acute respiratory failure with hypercapnia; J44.1 Chronic obstructive pulmonary disease with (acute) exacerbation; E87.29 Other acidosis; D68.69 Other thrombophilia; T82.857A Stenosis of other cardiac prosthetic devices, implants and grafts, initial encounter; E87.1 Hypo-osmolality and hyponatremia; I25.10 Atherosclerotic heart disease of native coronary artery without angina pectoris; E66.9 Obesity, unspecified; I44.7 Left bundle-branch block, unspecified; E78.5 Hyperlipidemia, unspecified; I48.91 Unspecified atrial fibrillation; I11.0 Hypertensive heart disease with heart failure; K21.9 Gastro-esophageal reflux disease without esophagitis; E87.6 Hypokalemia; Z68.30 Body mass index [BMI] 30.0-30.9, adult; Z79.899 Other long term (current) drug therapy; Z79.82 Long term (current) use of aspirin; Z95.3 Presence of xenogenic heart valve; Y84.8 Other medical procedures as the cause of abnormal reaction of the patient, or of later complication, without mention of misadventure at the time of the procedure; Y92.89 Other specified places as the place of occurrence of the external cause; Z88.1 Allergy status to other antibiotic agents; Z88.2 Allergy status to sulfonamides
CPT/HCPCS: 36415; 36569; 36600; 71045; 80048; 80053; 81001; 82570; 82805; 82962; 83735; 83880; 83935; 84100; 84132; 84295; 84300; 84484; 85025; 85379; 85610; 87081; 93005; 93306; 93312; 93454; 94640; 94644; 94660; 99152; 99291; C1894; G0378; J2250; J2405; J2470; J7060; Q9967